=== PATIENT | male | born 1955 | race Caucasian/White ===

== ENCOUNTER → 2017-09-27 13:23 | Outpatient (CLI) | payer SELFPAY ==
[2017-09-27 14:50] LABS: International Normalized Ratio 2.7; Prothrombin Time (Protime)PT. 28.9 SECONDS (11.7-14.9)
== END ==
PROVIDERS: Physician Assistant Medical; Family Provider Family Medicine; PCP Family Medicine; Visit Provider Internal Medicine Cardiovascular Disease
DX: E78.5 Hyperlipidemia, unspecified (principal); I10 Essential (primary) hypertension; Q23.1 Congenital insufficiency of aortic valve; Z79.01 Long term (current) use of anticoagulants; Z79.899 Other long term (current) drug therapy; Z95.2 Presence of prosthetic heart valve
CPT/HCPCS: 36415; 85610

== ENCOUNTER 2018-03-08 08:36 | Outpatient (RCR) | payer SELFPAY ==
[2018-02-18 10:53] LABS: International Normalized Ratio 1.9; Prothrombin Time (Protime)PT. 22.2 SECONDS (11.7-14.9)
[2018-02-25 09:27] LABS: International Normalized Ratio 1.3; Prothrombin Time (Protime)PT. 16.4 SECONDS (11.7-14.9)
[2018-02-28 10:28] LABS: International Normalized Ratio 2.1; Prothrombin Time (Protime)PT. 23.4 SECONDS (11.7-14.9)
[2018-03-08 09:56] LABS: International Normalized Ratio 2.8; Prothrombin Time (Protime)PT. 29.3 SECONDS (11.7-14.9)
[2018-03-08 10:06] LABS: AST(SGOT) 20 U/L (15-37); Alanine Aminotransfer ALT/SGPT 27 U/L (16-61); Albumin, Serum 3.6 g/dL (3.2-5.0); Alkaline Phosphatase 57 U/L (45-117); Cholesterol 144 mg/dL (200); Globulin 3.7 g/dL (2.2-4.2); High Density Lipoprotein 38 mg/dL; Protein, Total 7.3 g/dL (6.4-8.2); Triglycerides 190 mg/dL; Very Low Density Lipoprotein 38 mg/dL (5-40)
== END 2018-03-08 10:00 | disposition home or self-care (01) ==
LOC: LAB 08:36
PROVIDERS: Family Provider Family Medicine; PCP Family Medicine; Visit Provider Internal Medicine Cardiovascular Disease
DX: Q23.1 Congenital insufficiency of aortic valve (principal); I71.2 Thoracic aortic aneurysm, without rupture; Z79.01 Long term (current) use of anticoagulants; Z95.2 Presence of prosthetic heart valve
CPT/HCPCS: 36415; 80061; 80076; 85610

== ENCOUNTER 2018-04-12 13:41 | Outpatient (RCR) | payer SELFPAY ==
[2018-04-12 15:21] LABS: International Normalized Ratio 2.9; Prothrombin Time (Protime)PT. 30.6 SECONDS (11.7-14.9)
== END 2018-04-12 15:00 | disposition home or self-care (01) ==
LOC: LAB 13:41
PROVIDERS: Family Provider Family Medicine; PCP Family Medicine; Visit Provider Internal Medicine Cardiovascular Disease
DX: I71.2 Thoracic aortic aneurysm, without rupture (principal); Q23.1 Congenital insufficiency of aortic valve; Z79.01 Long term (current) use of anticoagulants; Z95.2 Presence of prosthetic heart valve
CPT/HCPCS: 36415; 85610

== ENCOUNTER 2018-05-18 07:32 | Outpatient (RCR) | payer SELFPAY ==
[2018-05-18 08:23] LABS: International Normalized Ratio 2.6; Prothrombin Time (Protime)PT. 27.8 SECONDS (11.7-14.9)
== END 2018-05-18 09:00 | disposition home or self-care (01) ==
LOC: LAB 07:32
PROVIDERS: Family Provider Family Medicine; PCP Family Medicine; Referring Provider Internal Medicine Cardiovascular Disease; Visit Provider Internal Medicine Cardiovascular Disease
DX: Q23.1 Congenital insufficiency of aortic valve (principal); I71.2 Thoracic aortic aneurysm, without rupture; Z79.01 Long term (current) use of anticoagulants; Z95.2 Presence of prosthetic heart valve
CPT/HCPCS: 36415; 85610

== ENCOUNTER 2018-07-04 09:47 | Outpatient (RCR) | payer SELFPAY ==
[2018-06-17 11:44] VITALS: BMI 41.8
[2018-06-23 09:51] LABS: International Normalized Ratio 1.8
[2018-07-04 10:35] LABS: International Normalized Ratio 3.3; Prothrombin Time (Protime)PT. 33.4 SECONDS (11.7-14.9)
== END 2018-07-04 10:47 | disposition home or self-care (01) ==
LOC: LAB 09:47
PROVIDERS: Family Provider Family Medicine; PCP Family Medicine; Referring Provider Internal Medicine Cardiovascular Disease; Visit Provider Internal Medicine Cardiovascular Disease
DX: Q23.1 Congenital insufficiency of aortic valve (principal); I71.2 Thoracic aortic aneurysm, without rupture; Z79.01 Long term (current) use of anticoagulants; Z95.2 Presence of prosthetic heart valve
CPT/HCPCS: 36415; 85610

== ENCOUNTER 2018-08-08 14:14 | Outpatient (RCR) | payer SELFPAY ==
[2018-07-18 14:59] VITALS: BMI 41.8
[2018-08-08 15:13] LABS: International Normalized Ratio 3.2; Prothrombin Time (Protime)PT. 33.1 SECONDS (11.7-14.9)
--- OUTSIDE RECORDS SUMMARY | 2018-10-11 02:18 | XMS RPT_ITS ---
:1955 Author Organization [facility] Support Name Relationship Address Phone PATRICIA ROMO Unavailable [address] + [place] [address] SCOT ROMO Unavailable Unavailable + [place] [address] SELF Unavailable Unavailable Unavailable PATRICIA ROMO S Unavailable [address] + [place] [address] SCOT ROMO Unavailable . + [place] [address] SELF Unavailable Unavailable Unavailable ROSALINDA ROMOT S Unavailable [address] + [place] [address] SCOT ROMO Unavailable . + [place] [address] SELF Unavailable Unavailable Unavailable ROSALINDA ROMOT S Unavailable [address] + [place] [address] SCOT ROMO Unavailable . + [place] [address] SELF Unavailable Unavailable Unavailable ROSALINDA ROMOT S Unavailable [address] + [place] [address] SCOT ROMO Unavailable Unavailable + [place] [address] SELF Unavailable Unavailable Unavailable ROSALINDA ROMOT S Unavailable [address] + [place] [address] SCOT ROMO W Unavailable . + [place] [address] SELF Unavailable Unavailable Unavailable ROSALINDA ROMOT S Unavailable [address] + [place] [address] SCOT ROMO W Unavailable . + [place] [address] SELF Unavailable Unavailable Unavailable ROSALINDA ROMOT S Unavailable [address] + [place] [address] SCOT ROMO Unavailable Unavailable + [place] [address] SELF Unavailable Unavailable Unavailable PATRICIA ROMO Unavailable [address] + [place] [address] SELF Unavailable Unavailable Unavailable PATRICIA ROMO Unavailable [address] + [place] [address] SELF Unavailable Unavailable Unavailable PATRICIA ROMO Unavailable [address] + [place] [address] SELF Unavailable Unavailable Unavailable PATRICIA ROMO Unavailable [address] + [place] [address] SELF Unavailable Unavailable Unavailable PATRICIA ROMO Unavailable [address] + [place] [address] SELF Unavailable Unavailable Unavailable PATRICIA ROMO Unavailable [address] + [place] [address] SELF Unavailable Unavailable Unavailable PATRICIA ROMO S Unavailable [address] + [place] [address] SELF Unavailable Unavailable Unavailable SELF Unavailable Unavailable Unavailable Care Team Providers Name Role Phone Blu Iyer Attending Unavailable Blu Iyer Referring Unavailable Solares, Misael Primary Care Unavailable Geovani Calloway D.O. Attending Unavailable Beck, Misael Referring Unavailable Blu Iyer Attending Unavailable Blu Iyer Referring Unavailable Solares, Misael Primary Care Unavailable Minerva Colon Attending Unavailable Solares, Misael Referring Unavailable Minerva Colon Attending Unavailable Solares, Misael Referring Unavailable Solares, Misael Attending Unavailable MoodBlu hatfield Attending Unavailable MoodisBlu estrada Referring Unavailable Solares, Misael Primary Care Unavailable Blu Iyer Attending Unavailable Blu Iyer Referring Unavailable Solares, Misael Primary Care Unavailable Bul Iyer Attending Unavailable Blu Iyer Referring Unavailable Solares, Misael Primary Care Unavailable Kelsie Boyce Attending Unavailable Geovani Calloway D.O. 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 Community disease, unspecified Hospital / J44.9(ICD-10) Repository 05/18/2018 Unknown Z23 - Encounter for Geovani Calloway Active [facility] immunization / D.O. Community Z23(ICD-10) Hospital Repository 03/22/2018 Unknown E78.5 - MoodispaBlu bennett Active [facility] Hyperlipidemia, Community unspecified / Hospital E78.5(ICD-10) Repository 09/27/2017 Unknown I10 - Essential MoodispaBlu bennett Active [facility] (primary) [facility] hypertension / Hospital I10(ICD-10) Repository 09/27/2017 Unknown Z79.899 - Other long MoodisBlu estrada Active [facility] term (current) drug Community therapy / Hospital Z79.899(ICD-10) Repository 09/27/2017 Unknown Z95.2 - Presence of MoodisBlu estrada Active [facility] prosthetic heart Community valve / Z95.2(ICD-10) Hospital Repository 08/20/2017 Unknown I25.10 - Alberto Zhang Active [facility] Atherosclerotic heart [facility] disease of [place] [facility] coronary artery Repository without angina pectoris / I25.10(ICD-10) 08/20/2017 Unknown E78.2 - Mixed Alberto Zhang Active [facility] hyperlipidemia / Community E78.2(ICD-10) Hospital Repository PROCEDURES PROCEDURES No Procedure Records FoundRESULTS RESULTS PROTHROMBIN TIME W/INR Collected: 08/08/2018 Status: F [facility] TYPE CODE TESTS RESULT OUT OF RANGE REFERENCE UNITS LAB L300.4150 11.7-14.9 SECONDS High PROTIME 33.1 LAB L300.4200 Normal INR 3.2 Performed By: #### L300.3900 #### [facility] [address] [place], [address] PROTHROMBIN TIME W/INR Collected: 07/04/2018 Status: F Source: [place] 10:06 AM [facility] REPOSITORY TYPE CODE TESTS RESULT OUT OF RANGE REFERENCE UNITS LAB L300.4150 11.7-14.9 SECONDS High PROTIME 33.4 LAB L300.4200 Normal INR 3.3 Performed By: #### L300.3900 #### [facility] [address] [place], [address] PULMONARY VISIT REPORT Observed: 06/24/2018 Status: F Source: [place] 1:37 PM [facility] REPOSITORY [facility] [address] [place] [address] OFFICE VISIT Date of Service: 06/23/18 MR#: [id number] Acct: [id number] Name: ABDIAS ROMO Rep #: [id number] : 1955 Provider: Minerva Colon Age/Sex: 63/M Location: [facility] Status: Signed Assessment AND Plan Problems 1. Chronic obstructive pulmonary disease, unspecified COPD type J44.9 Plan Exacerbation improving. Take antibiotics and prednisone as prescribed. Continue current maintenance medications. No additional testing at this time. Keep previously scheduled routine follow-up. HPI f/u after acute illness: Chief Complaint: Cough HPI Comments Details: This patient presents the office in follow-up after recently being treated for exacerbation of his COPD. He is ambulatory and currently complete by his . He is on room air. He was placed on doxycycline and a prednisone taper. He has been on both of them for several days. He states that he is not 100% better but has improved significantly. He still has a slight cough that was previously productive of green sputum and is now productive of clear sputum. He also reports that the cough has reduced in frequency. He still has some wheezing but is only present at night. He shortness of breath is improving. He denies any hemoptysis. He denies any fever, chills or body aches. See complete review of systems. He is compliant with Asmanex 2 puffs twice daily. He reports rinsing his mouth out after each use and denies any medication side effects such as sore throat or thrush. He has not needed to use his rescue inhaler today, and the frequency of its use has also been reducing. Intake Vital Signs06/23/18 Height 5 ft 9 in 06/23/18 Weight: 280 lb Intake Visit Reasons: f/u after acute illness Accompanied by: Allergies Penicillins Allergy (Verified 06/24/18 08:33) Unknown Medications warfarin 1 mg tablet 2 mg PO 4XW tab 07/07/17 [History Confirmed 06/24/18] warfarin 1 mg tablet 3 mg PO .3XW tab 07/07/17 [History Confirmed 06/24/18] aspirin 81 mg tablet,delayed release 81 mg PO QDAY 08/05/17 [History Confirmed 06/24/18] niacin ER 500 mg tablet,extended release 24 hr 500 mg PO QHS #90 tab 08/13/17 [Rx Confirmed 06/24/18] ramipril 10 mg capsule 10 mg PO QDAY #90 cap 08/13/17 [Rx Confirmed 06/24/18] spironolactone 50 mg tablet 50 mg PO QDAY #90 tab 08/13/17 [Rx Confirmed 06/24/18] beclomethasone dipropionate 80 mcg/actuation aerosol inhaler 2 puff INHALATION Q12H #8.7 g 12/30/17 [Rx Confirmed 06/24/18] warfarin 1 mg tablet 1 mg PO QDAY #100 tab 03/22/18 [Rx Confirmed 06/24/18] metoprolol succinate ER 100 mg tablet,extended release 24 hr 100 mg PO QDAY #90 tab 05/18/18 [Rx Confirmed 06/24/18] mometasone 200 mcg/actuation HFA aerosol inhaler 2 puff INHALATION BID #1 device 05/18/18 [Rx Confirmed 06/24/18] warfarin 5 mg tablet 5 mg PO QDAY #90 tab 05/18/18 [Rx Confirmed 06/23/18] albuterol sulfate HFA 90 mcg/actuation aerosol inhaler 2 puff INHALATION Q4H PRN #6.7 g 11/01/18 [Rx Confirmed 06/24/18] potassium chloride ER 20 mEq tablet,extended release(part/cryst) 20 meq PO QDAY #90 tab 05/19/18 [Rx Confirmed 06/24/18] doxycycline hyclate 100 mg tablet 100 mg PO BID #20 tab 06/17/18 [Rx Confirmed 06/24/18] prednisone 10 mg tablet 10 mg PO QDAY #30 tab 06/17/18 [Rx Confirmed 06/24/18] PFSH Medical History Essential hypertension (Chronic) GERD (gastroesophageal reflux disease) (Chronic) Atherosclerosis of [place] coronary artery of [place] heart without angina pectoris (Chronic) Obesity (Chronic) Breathing-related sleep disorder (Chronic) COPD (chronic obstructive pulmonary disease) (Chronic) Lung nodule (Chronic) Snoring (Chronic) Carotid bruit (Chronic) Aortic valve, bicuspid (Chronic) Aortic aneurysm, thoracic (Chronic) Aortic valve disease (Chronic) Hypokalemia (Chronic) HLD (hyperlipidemia) (Chronic) JO ANN (obstructive sleep apnea) (Acute) Surgical History History of mechanical aortic valve replacement (Resolved 06/2004) History of left heart catheterization (LHC) (Resolved) History of right and left heart catheterization (Resolved) H/O aortic valve replacement (Inactive) Family History Father , age 60 Myocardial infarction Hypertension Mother CAD (coronary artery disease) Hypertension HLD (hyperlipidemia) Brother Hypertension Sister Cancer Bone Cancer Social History Smoking Status: Never smoker alcohol intake: current alcohol intake frequency: holidays/special occasions only Alcohol type: beer, wine substance use type: does not use caffeine: Yes Type: coffee Number of servings: 3 what type of physical activity do you participate in: none seatbelt use: always do you feel safe at home: Yes Review of Systems Const CONSTITUTIONAL: Negative anorexia, body ache, chills, daytime sleepiness, fever(s), night sweats, oral thrush, stops breathing during sleep, weight loss, sleeping in chair, fatigue, weight loss, weight gain, frequent colds, seasonal allergies, other, headache(s) or orthopnea EETM Ear Nose Throat Mouth: Positive hearing normal and post nasal drip; negative hard of hearing, hoarseness, dry mouth in morning, change in vision, itchy eyes, eye pain, swallowing Difficulty, ear pain, nose bleed, headache(s), mouth pain, nasal congestion, nasal discharge, sinus pain, sinus pressure, sore throat or other Cardio Cardiovascular: Negative chest pain, chest pain at rest, chest pain with activity, irregular heart rhythm, edema, shortness of breath when lying down, palpitations, murmur or other Resp Respiratory: Positive as per HPI, shortness of breath shortness of breath: Positive with activity, wheezing (at HS ) and cough cough: Positive productive color: Positive thick and clear; negative pain with cough, chest congestion, chest tightness, pain on inspiration, inhalers, increase use of rescue inhalers, snoring, apnea or other Gastro Gastrointestional: Negative bloody stools, change in appetite, difficulty swallowing, reflux, hematemesis, melena stool, loose stool, constipation or other Genitourinary: Negative blood in urine, nocturia, pain with urination or other Musc Musculoskeletal: Negative body pain, back pain, neck pain or other Skin/Breast Skin/Breast: Negative dry skin, itching, rash, unusual bruising, breast lump or other Neuro Neurological: Negative restless legs, confusion, weakness or other Psych Psychocological: Negative abnormal sleep pattern, anxiety, thoughts of hurting self/others, hopelessness or other Lymph Lymphatic: Negative easy bleeding, easy bruising, swollen lymph nodes or other Exam Const Constitutional: Positive conversant, cooperative, in no acute respiratory distress, healthy appearing, well developed, well nourished, good hygiene and obese Head Head: Positive normocephalic and atraumatic; negative cyanosis of lips/distal nose Eyes Eye: Positive clear conjunctiva; negative nystagmus or scleral abnormality Ears Ear: Positive hearing normal and external ears normal; negative hard of hearing Nose Nose: Positive external nose normal and no nasal discharge; negative epistaxis Mouth Mouth: Positive post nasal drip, oral mucosae normal, no lesions, good dentition and crowded posterior oropharynx; negative malodorous breath or oral thrush present Mallampati Score: III: Mallampati Score Neck Neck: Positive normal visual inspection, full ROM and trachea midline; negative lymphadenopathy, JVD or tender Chest Wall Chest: Positive normal inspection of the chest and symmetric chest movement; negative increased A/P diameter Resp lung sounds: Positive clear to auscultation, good air exchange, normal expiratory time and normal respiratory effort; negative diminished, wheezes, rhonchi, rales, dullness to percussion or wheeze present on forced exhalation Cardio Cardiac: Positive regular rate, regular rhythm, S1 normal and S2 normal; negative murmur GI GI: Positive normal to inspection and obese; negative distended Genitourinary: Positive deferred Musc Musculoskeletal: Positive steady gait and ROM normal; negative kyphosis or scoliosis Skin Pulmonary Skin Exam: Positive intact; negative rash Pulses Pulse: Yes pulses normal x4 extremities Neuro Neurologic: Yes conversant, Yes no focal neuro deficits, Yes cooperative, Yes normal cognition, Yes normal concentration, Yes understands questions, No tremor, Yes normal coordination Lymph Lymphatic: No lymphadenopathy, No tenderness Psych Appearance: Positive grossly normal, eye contact and well kempt Mental Status: Positive mental status grossly normal Mood: Positive congruent mood Affect: Positive normal affect Coding Level of Care Code Off vis,est,level 3 Diagnoses Chronic obstructive pulmonary disease, unspecified COPD type J44.9 COPD type: unspecified COPD 06/24/18 1337 <Electronically signed by Minerva WORTHINGTON> Date Minerva WORTHINGTON Cosigner Signature: Date (if applicable) CC: Misael Solares MD CARDIOLOGY VISIT Observed: 06/24/2018 Status: F Source: [place] REPORT 11:50 AM [facility] REPOSITORY [facility] [address] [place] [address]. [address] [place], [place] [id number] OFFICE VISIT Date of Service: 06/24/18 MR#: [id number] Acct: [id number] Name: ABDIAS ROMO Rep #: [id number] : 1955 Provider: Blu Iyer MD Age/Sex: 63/M Location: [facility] Status: Signed HPI HPI Details: ABDIAS ROMO, is a 63 M who presents to the office today for outpatient cardiovascular follow-up. Overall he states he is doing well. He denies any concerning chest discomfort. There is been no significant change with his respiratory status. There has been no near syncope or syncope. He has had no unexplained fevers, chills, or night sweats. 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: No Accompanied by: None Is patient in pain?: No Allergies Penicillins Allergy (Verified 06/24/18 08:33) Unknown Medications warfarin 1 mg tablet 2 mg PO 4XW tab 07/07/17 [History Confirmed 06/24/18] warfarin 1 mg tablet 3 mg PO .3XW tab 07/07/17 [History Confirmed 06/24/18] aspirin 81 mg tablet,delayed release 81 mg PO QDAY 08/05/17 [History Confirmed 06/24/18] niacin ER 500 mg tablet,extended release 24 hr 500 mg PO QHS #90 tab 08/13/17 [Rx Confirmed 06/24/18] ramipril 10 mg capsule 10 mg PO QDAY #90 cap 08/13/17 [Rx Confirmed 06/24/18] spironolactone 50 mg tablet 50 mg PO QDAY #90 tab 08/13/17 [Rx Confirmed 06/24/18] beclomethasone dipropionate 80 mcg/actuation aerosol inhaler 2 puff INHALATION Q12H #8.7 g 12/30/17 [Rx Confirmed 06/24/18] warfarin 1 mg tablet 1 mg PO QDAY #100 tab 03/22/18 [Rx Confirmed 06/24/18] metoprolol succinate ER 100 mg tablet,extended release 24 hr 100 mg PO QDAY #90 tab 05/18/18 [Rx Confirmed 06/24/18] mometasone 200 mcg/actuation HFA aerosol inhaler 2 puff INHALATION BID #1 device 05/18/18 [Rx Confirmed 06/24/18] warfarin 5 mg tablet 5 mg PO QDAY #90 tab 05/18/18 [Rx Confirmed 06/23/18] albuterol sulfate HFA 90 mcg/actuation aerosol inhaler 2 puff INHALATION Q4H PRN #6.7 g 05/19/18 [Rx Confirmed 06/24/18] potassium chloride ER 20 mEq tablet,extended release(part/cryst) 20 meq PO QDAY #90 tab 05/19/18 [Rx Confirmed 06/24/18] doxycycline hyclate 100 mg tablet 100 mg PO BID #20 tab 06/17/18 [Rx Confirmed 06/24/18] prednisone 10 mg tablet 10 mg PO QDAY #30 tab 06/17/18 [Rx Confirmed 06/24/18] PFSH Medical History Essential hypertension (Chronic) GERD (gastroesophageal reflux disease) (Chronic) Atherosclerosis of [place] coronary artery of [place] heart without angina pectoris (Chronic) Obesity (Chronic) Breathing-related sleep disorder (Chronic) COPD (chronic obstructive pulmonary disease) (Chronic) Lung nodule (Chronic) Snoring (Chronic) Carotid bruit (Chronic) Aortic valve, bicuspid (Chronic) Aortic aneurysm, thoracic (Chronic) Aortic valve disease (Chronic) Hypokalemia (Chronic) HLD (hyperlipidemia) (Chronic) JO ANN (obstructive sleep apnea) (Acute) Surgical History History of mechanical aortic valve replacement (Resolved 06/2004) History of left heart catheterization (LHC) (Resolved) History of right and left heart catheterization (Resolved) H/O aortic valve replacement (Inactive) Family History Father , age 60 Myocardial infarction Hypertension Mother CAD (coronary artery disease) Hypertension HLD (hyperlipidemia) Brother Hypertension Sister Cancer Bone Cancer Social History Smoking Status: Never smoker alcohol intake: current alcohol intake frequency: holidays/special occasions only Alcohol type: beer, wine substance use type: does not use caffeine: Yes Type: coffee Number of servings: 3 what type of physical activity do you participate in: none seatbelt use: always do you feel safe at home: Yes ROS Const Const: Negative for fatigue, weakness, night sweats, excessive sweating, frequent falls, headache(s) or daytime sleepiness Eyes Eyes: Negative for loss of peripheral vision, transient loss of vision, blind spots, double vision or blurry vision ENT ENT: Negative for headache(s), dizziness, balance problems, Nosebleed/epistaxis, tongue swelling or lip swelling Cardio Chest Pain: No Palpitations: No Edema: None Muscle aches with walking: None Resp Respiratory: Positive for SOB at rest and SOB with activity; negative for SOB orthopnea\SOB lying down, Cough or paroxysmal nocturnal dyspnea GI GI: Negative nausea, vomiting, heartburn, black,tarry stools or bright, red blood in stools : Negative for hematuria Musc Musc: Negative for balance problems, muscle aches/ myalgia, muscle weakness or joint pain Skin Skin: Negative non-healing lesions, unusual bruising or rash Neuro Neuro: Negative for weakness, frequent falls, headache(s), double vision, dizziness, lightheadedness, orthostatic symptoms, blurry vision or lack of coordination Keys[place]wn Hematologic/Lymphatic: Negative for easy bruising or easy bleeding Endo Endo: Negative for fatigue, excessive sweating, cold intolerance, heat intolerance, increased thirst/drinking or hair loss Psych Psych: Negative for anxiety or depression Allergy Allergy/Immunology: Negative for throat swelling, Negative for tongue swelling, Negative for hives, Negative for rash, Negative for lip swelling Cardiology Exam Const Appearance: cooperative, healthy appearing, comfortable, no acute distress, well developed and well groomed Nutritional Appearance: overweight Orientation: alert, awake and oriented x3 Head Head: normal to inspection, normocephalic and atraumatic Ears: hearing grossly normal bilaterally Nose: external nose normal Face and Sinus: face symmetric Mouth: oral mucosae normal Teeth and gingiva: fair dentition Eyes Eyelids: eyelids normal Conjunctivae: conjunctivae normal Pupils: PERRL EOM: EOM intact bilaterally Neck Neck: no JVD and normal visual inspection Carotids: normal carotid upstroke Chest Chest inspection: normal inspection of the chest, normal respiratory effort and symmetric chest movement Auscultation: Bilateral: Expiratory Wheezes Cardio Rate: regular rate Rhythm: regular rhythm Heart sounds: murmur (systolic click, right sternal border), S1 normal and crisp prosthetic S2; negative rub or gallop GI GI: normal to inspection, bowel sounds present and soft Neuro General: alert, awake, oriented x3 and moves all extremities Skin Skin: no rashes or lesions noted Extremities Pulses: Normal: Right Posterior Tibial Pulse, Left Posterior Tibial Pulse, Right Radial Pulse, Left Radial Pulse Lower Extremity Edema: None: Bilateral Psych Psychological: normal affect Assessment AND Plan 1. Aortic valve disorder I35.[address] [facility] 06/2004 Plan At the present time, with respect to his aortic valve, he is status post aortic valve replacement with a mechanical [place] aortic valve prosthesis. He has been doing well with no acute symptoms or adverse events. He did have a transthoracic echocardiogram performed in December 2016. He has aortic valve apparatus was stable. He will need to continue AHA antibiotic prophylaxis 2. History of mechanical aortic valve replacement Z95.2 [facility] mechanical valve 06/2004; Plan He will continue evaluation care of his aortic valve as noted above. Over time he will have follow-up echocardiograms to monitor his aortic valve apparatus 3. Atherosclerosis of [place] coronary artery of [place] heart without angina pectoris I25.10 Mild Plan He has a history of CAD which has been considered minimal to mild. He will continue risk factor evaluation and care as deemed appropriate. 4. Mixed hyperlipidemia E78.2 Plan He remains on medical management with respect to his lipids. This has included niacin therapy. A copy of his most recent lipid labs from his PCP would be appreciated for continuity of care purposes. 5. Essential hypertension I10 Plan His blood pressure appears to be recently well controlled. 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 He will continue medical therapy with follow-up INR levels. Plan Detail Additional Comments Thank you for allowing me to participate in the care of your patient. Please don't hesitate to call if any issues arise. This note was generated using a voice recognition system and there may be incorrect words, spelling or punctuation that were not noted when reviewing the office note prior to saving. 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 Z79.01 Coding Level of Care Code Off vis,est,level 3 Diagnoses Aortic valve disorder I35.9 History of mechanical aortic valve replacement Z95.2 Atherosclerosis of king salmon coronary artery of king salmon heart without angina pectoris I25.10 Mixed hyperlipidemia E78.2 Hyperlipidemia type: mixed hyperlipidemia Essential hypertension I10 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, [address] PROTHROMBIN TIME W/INR Collected: 05/18/2018 Status: F Source: [place] 7:37 AM [facility] REPOSITORY TYPE CODE TESTS RESULT OUT OF RANGE REFERENCE UNITS LAB L300.4150 11.7-14.9 SECONDS High PROTIME 27.8 LAB L300.4200 Normal INR 2.6 Performed By: #### L300.3900 #### [facility] [address] [place], [address] PULMONARY VISIT REPORT Observed: 05/18/2018 Status: F Source: [place] 7:25 AM [facility] REPOSITORY Pulmonary Medicine of [address] [place] [address] OFFICE VISIT Date of Service: 05/18/18 MR#: [id number] Acct: [id number] Name: ABDIAS ROMO Pascual Rep #: [id number] : 1955 Provider: Geovani Calloway D.O. Age/Sex: 63/M Location: [facility] Status: Signed Assessment AND Plan 1. 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 To date, the patient has developed side effects to the use of LAMA inhalers more recently to combination LAMA/LABA inhalers. Therefore, the patient was transitioned to an inhaled corticosteroid as monotherapy along with an albuterol rescue inhaler. This has proved to be beneficial in his case. His breathing quality has improved. However, due to his lack of insurance coverage, the currently prescribed inhaled corticosteroid remains costly. Advised the patient and his to contact the retail pharmacist to discuss with him the most cost effective inhaled corticosteroid available. In the interim, I will provide the patient with samples of Asmanex. We discussed the idea of transitioning him to nebulized medications, budesonide. However, he does not want to be tethered to a nebulizer throughout the day. We will plan to obtain repeat pulmonary function testing and a 6-minute walk test prior to his follow- up office visit with me in 6 months. The patient did receive his annual influenza vaccination today. Orders Orders: 2. Lung nodule R91.1 Plan The patient has a known subcentimeter pulmonary nodule, with last imaging completed in May 2017. It was recommended that he undergo a repeat CT chest in 18-24 months. They would like to wait until the patient turned 64 years old, as he will then be covered by Medicare. We will plan to obtain a repeat CT chest without contrast in approximately 1 year. 3. Obesity E66.9 Plan Weight loss through dietary modification and a graded exercise regimen is strongly encouraged. Plan Detail Other Orders Orders: Other Medications New: Discontinued: beclomethasone diprop 80 mcg/actuation (Qvar RediHaler) Disconti1 puff Inhalation BID nued Reason: Order Changed Follow Up 6 Months (DMB) HPI HPI Comments Details: The patient is a 63-year-old male who presents to the clinic today for a routine scheduled follow-up office visit. Patient's is in attendance at today's office visit. If you recall, the patient was previously being followed by Dr. Newman at [facility]. The patient presented to me with an established diagnosis of COPD, for which he was prescribed Proventil. He also had a known history of pulmonary nodules, which were being followed with serial chest imaging. He does have a history of aortic valve replacement in 2003 at the [facility]. Noncontrasted chest CT from November 2016 revealed the presence of a stable appearing 8.7 mm solid nodule in the medial superior segment of the right lower lobe. Pulmonary function testing completed in September 2016 revealed evidence of a partially reversible severe large airways obstructive ventilatory defect. There was a mild reduction in diffusing capacity measurement noted. Over last 2 years, there was an appreciable decrease in the patient's FEV1. The patient also had symptoms concerning for underlying sleep disordered breathing, but refused to undergo any additional workup due to fears of her claustrophobia. He is a lifelong non-smoker. 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 He also has reported seasonal allergic rhinitis, with symptoms typically worse in the spring and late fall months. He has lived in [place] his entire life. A repeat CT chest with contrast, completed in May 2017, revealed a stable appearing 8.4 mm noncalcified nodule in the right lower lobe. Today, the patient reports interval improvement in his breathing quality since being started on QVAR as a monotherapy maintenance inhaler. He typically utilizes his rescue inhaler approximately 10 minutes before utilizing his inhaled corticosteroid each morning. Their main concern is the cost associated with refilling the inhaled corticosteroid. In fact, the patient reports that he recently cut back to only using the medication once per day due to the cost. Patient does report occasional wheezing, typically in the evening hours. He denies any chest tightness or nocturnal symptoms. He denies the presence of a cough. He is agreeable to receiving his annual influenza vaccination today. He has not been evaluated in the emergency department or urgent care clinic for breathing related issues since his last office visit. His weight has remained relatively stable. He denies fevers, chills or night sweats. Intake Vital Signs05/18/18 Height 5 ft 9 in 05/18/18 Weight: 285 lb Intake Visit Reasons: 6 M FU Allergies Penicillins Allergy (Verified 11/08/17 08:49) Unknown Medications warfarin 1 mg tablet 2 mg PO 4XW tab 07/07/17 [History Confirmed 05/18/18] warfarin 1 mg tablet 3 mg PO .3XW tab 07/07/17 [History Confirmed 05/18/18] aspirin 81 mg tablet,delayed release 81 mg PO QDAY 08/05/17 [History Confirmed 05/18/18] metoprolol succinate ER 100 mg tablet,extended release 24 hr 100 mg PO QDAY #90 tab 08/13/17 [Rx Confirmed 05/18/18] niacin ER 500 mg tablet,extended release 24 hr 500 mg PO QHS #90 tab 08/13/17 [Rx Confirmed 05/18/18] potassium chloride ER 20 mEq tablet,extended release(part/cryst) 20 meq PO QDAY #90 tab 08/13/17 [Rx Confirmed 05/18/18] ramipril 10 mg capsule 10 mg PO QDAY #90 cap 08/13/17 [Rx Confirmed 05/18/18] spironolactone 50 mg tablet 50 mg PO QDAY #90 tab 08/13/17 [Rx Confirmed 05/18/18] warfarin 5 mg tablet 5 mg PO QDAY #90 tab 08/13/17 [Rx Confirmed 05/18/18] albuterol sulfate HFA 90 mcg/actuation aerosol inhaler 2 puff INHALATION Q4H PRN g 10/04/17 [History Confirmed 05/18/18] beclomethasone dipropionate 80 mcg/actuation aerosol inhaler 2 puff INHALATION Q12H #8.7 g 12/30/17 [Rx Confirmed 05/18/18] warfarin 1 mg tablet 1 mg PO QDAY #100 tab 03/22/18 [Rx Confirmed 05/18/18] mometasone 200 mcg/actuation HFA aerosol inhaler 2 puff INHALATION BID #1 device 05/18/18 [Rx Confirmed 05/18/18] PFSH Medical History Essential hypertension (Chronic) GERD (gastroesophageal reflux disease) (Chronic) Atherosclerosis of king salmon coronary artery of king salmon heart without angina pectoris (Chronic) Obesity (Chronic) Breathing-related sleep disorder (Chronic) COPD (chronic obstructive pulmonary disease) (Chronic) Lung nodule (Chronic) Snoring (Chronic) Carotid bruit (Chronic) Aortic valve, bicuspid (Chronic) Aortic aneurysm, thoracic (Chronic) Aortic valve disease (Chronic) Hypokalemia (Chronic) HLD (hyperlipidemia) (Chronic) JO ANN (obstructive sleep apnea) (Acute) Surgical History H/O aortic valve replacement (Chronic) History of left heart catheterization (LHC) (Resolved) History of right and left heart catheterization (Resolved) Family History Father , age 60 Myocardial infarction Hypertension Mother CAD (coronary artery disease) Hypertension HLD (hyperlipidemia) Brother Hypertension Sister Cancer Bone Cancer Social History Smoking Status: Never smoker alcohol intake: current alcohol intake frequency: holidays/special occasions only Alcohol type: beer, wine substance use type: does not use caffeine: Yes Type: coffee Number of servings: 3 what type of physical activity do you participate in: none seatbelt use: always do you feel safe at home: Yes Review of Systems Const CONSTITUTIONAL: Negative anorexia, body ache, chills, daytime sleepiness, fever(s), night sweats, oral thrush, stops breathing during sleep, weight loss, sleeping in chair, fatigue, weight loss, weight gain, frequent colds, seasonal allergies, other, headache(s) or orthopnea EETM Ear Nose Throat Mouth: Positive hearing normal and nasal discharge; negative hard of hearing, hoarseness, dry mouth in morning, change in vision, itchy eyes, eye pain, swallowing Difficulty, ear pain, nose bleed, headache(s), mouth pain, nasal congestion, post nasal drip, sinus pain, sinus pressure, sore throat or other Cardio Cardiovascular: Positive murmur; negative chest pain, chest pain at rest, chest pain with activity, irregular heart rhythm, edema, shortness of breath when lying down, palpitations or other Resp Respiratory: Positive as per HPI, cough cough: Positive productive color: Positive clear and thick and shortness of breath shortness of breath: Positive with activity; negative pain with cough, wheezing, chest congestion, chest tightness, pain on inspiration, inhalers, increase use of rescue inhalers, snoring, apnea or other Gastro Gastrointestional: Negative bloody stools, change in appetite, difficulty swallowing, reflux, hematemesis, melena stool, loose stool, constipation or other Genitourinary: Negative blood in urine, nocturia, pain with urination or other Musc Musculoskeletal: Negative body pain, back pain, neck pain or other Skin/Breast Skin/Breast: Negative dry skin, itching, rash, unusual bruising, breast lump or other Neuro Neurological: Negative restless legs, confusion, weakness or other Psych Psychocological: Negative abnormal sleep pattern, anxiety, thoughts of hurting self/others, hopelessness or other Lymph Lymphatic: Negative easy bleeding, easy bruising, swollen lymph nodes or other Exam Const Constitutional: Positive conversant, cooperative, in no acute respiratory distress, well developed, well nourished, good hygiene and obese Head Head: Positive normocephalic and atraumatic; negative cyanosis of lips/distal nose Eyes Eye: Positive clear conjunctiva; negative nystagmus or scleral abnormality Ears Ear: Positive hearing normal and external ears normal; negative hard of hearing Nose Nose: Positive external nose normal; negative epistaxis Mouth Mouth: Positive oral mucosae normal and posterior oropharynx is adequate; negative no lesions or post nasal drip Mallampati Score: III: Mallampati Score Neck Neck: Positive normal visual inspection, trachea midline and thick neck; negative lymphadenopathy Chest Wall Chest: Positive symmetric chest movement Normal AP diameter. Resp lung sounds: Positive clear to auscultation and good air exchange; negative wheezes, rhonchi or rales Cardio Cardiac: Positive regular rate, regular rhythm, S1 normal, S2 normal and murmur; negative rub or gallop GI GI: Positive normal bowel sounds and obese Soft without distention Genitourinary: Positive deferred Musc Musculoskeletal: Positive steady gait Skin Pulmonary Skin Exam: Positive intact; negative lesion, ulcers, dermal atrophy or rash Pulses Pulse: Yes Pedal pulses present: Extremities Extremities: No clubbing, No cyanosis, No edema Neuro Neurologic: Yes conversant, Yes no focal neuro deficits, Yes cooperative Lymph Lymphatic: No lymphadenopathy Psych Appearance: Positive grossly normal Mental Status: Positive mental status grossly normal Mood: Positive congruent mood Affect: Positive normal affect Office Meds Flucelvax Quad [id number] (PF) Performing Provider: Geovani Calloway DO Administered by: Alysia Lundberg on 05/18/18 07:18 Dose Route Admin Location Lot Number Expiration Date NDC Customer Service Sales Consultant 60 mcg IM Rt Deltoid [id number] 12/17/18 36860-295-92 SEQIRUS Coding Level of Care Code Off vis,est,level 3 Diagnoses 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 [place], [place], [id number] PROTHROMBIN TIME W/INR Collected: 03/08/2018 Status: F Source: [place] 8:41 AM [facility] REPOSITORY TYPE CODE TESTS RESULT OUT OF RANGE REFERENCE UNITS LAB L300.4150 11.7-14.9 SECONDS High PROTIME 29.3 LAB L300.4200 Normal INR 2.8 Performed By: #### L300.3900 #### [facility] [address] [place], [place], [id number] LIVER PROFILE Collected: 03/08/2018 Status: F Source: [place] 8:39 AM [facility] REPOSITORY TYPE CODE TESTS RESULT OUT OF RANGE REFERENCE UNITS LAB L501.1500 6.4-8.2 g/dL Normal T PROT 7.3 LAB L501.1800 3.2-5.0 g/dL Normal ALB 3.6 LAB L501.1950 2.2-4.2 g/dL Normal GLOB 3.7 LAB L501.4100 15-37 U/L Normal AST 20 LAB L501.4305 45-117 U/L Normal ALK P 57 LAB L501.4405 16-61 U/L Normal ALT 27 LAB L501.4600 0.20-1.00 mg/dL Normal T BILI 0.90 LAB L501.4700 0.00-0.30 mg/dL Normal D BILI 0.20 Performed By: #### L500.3400, L500.4100 #### [facility] [address] [place], [place], [address] LIPID PROFILE Collected: 03/08/2018 Status: F Source: [place] 8:39 AM [facility] REPOSITORY TYPE CODE TESTS RESULT OUT OF RANGE REFERENCE UNITS LAB L501.4900 200 mg/dL Normal CHOL 144 Result Comment: <200 mg/dL Desirable 200-240 mg/dL Borderline >240 mg/dL High Risk LAB L501.5000 mg/dL Normal TRIG 190 Result Comment: The drugs N-Acetylcysteine and Metamizole may falsely depress this assay. Serum Triglycerides Reference Interval Normal <150 mg/dL Borderline high 150 - 199 mg/dL High 200 - 499 mg/dL Very High > or = 500 mg/dL LAB L501.6400 mg/dL Low HDL 38 Result Comment: The drugs N-Acetylcysteine and Metamizole may falsely depress this assay. Reference Range HDL <40 mg/dL Low HDL Cholesterol HDL >or= 60 mg/dL High HDL Cholesterol LAB L501.6500 0-130 mg/dL Normal LDL 68 LAB L501.6600 5-40 mg/dL Normal VLDL 38 Performed By: #### L500.3400, L500.4100 #### [facility] [address] [place], [address] PROTHROMBIN TIME W/INR Collected: 02/28/2018 Status: F Source: [place] 9:28 AM [facility] REPOSITORY TYPE CODE TESTS RESULT OUT OF RANGE REFERENCE UNITS LAB L300.4150 11.7-14.9 SECONDS High PROTIME 23.4 LAB L300.4200 Normal INR 2.1 Performed By: #### L300.3900 #### [facility] [address] [place], [address] PROTHROMBIN TIME W/INR Collected: 02/25/2018 Status: F Source: [place] 8:51 AM [facility] REPOSITORY Order Comment: Comments: standing order TYPE CODE TESTS RESULT OUT OF RANGE REFERENCE UNITS LAB L300.4150 11.7-14.9 SECONDS High PROTIME 16.4 LAB L300.4200 Normal INR 1.3 Performed By: #### L300.3900 #### [facility] [address] [place], [address] PROTHROMBIN TIME W/INR Collected: 02/18/2018 Status: F Source: [place] 9:43 AM [facility] REPOSITORY TYPE CODE TESTS RESULT OUT OF RANGE REFERENCE UNITS LAB L300.4150 11.7-14.9 SECONDS High PROTIME 22.2 LAB L300.4200 Normal INR 1.9 Performed By: #### L300.3900 #### [facility] [address] [place], [address] PULMONARY VISIT REPORT Observed: 11/08/2017 Status: F Source: [place] 10:02 AM [facility] REPOSITORY [facility] [place] [address] [place] [address] OFFICE VISIT Date of Service: 11/08/17 MR#: [id number] Acct: [id number] Name: ABDIAS ROMO Rep #: [id number] : 1955 Provider: Minerva Colon Age/Sex: 62/M Location: [facility] Status: Signed Assessment AND Plan Problems 1. Chronic obstructive pulmonary disease, unspecified COPD type J44.9 Status Chronic Plan He has responded well to the use of the straight inhaled cortical steroid. Continue Arnuity, provided him with a pamphlet with possible financial assistance information in it. He does have a postnasal drip on exam and reports a cough that is productive of clear sputum in the mornings. He has been encouraged to use Flonase, he has done so in the past. He reports that he typically needs to use Flonase in the spring. Follow-up with Dr. Calloway in 6 months, no additional testing prior to that follow-up. He has been encouraged to contact the office if he develops any new or worsening symptoms in the meantime. Plan Detail Follow Up 6 Months (DMB) HPI HPI Comments Details: Patient presents the office today after newly being changed to a straight inhaled corticosteroid alone. He is ambulatory and currently in room air. He denies being seen in the ED urgent care for any breathing problems since his last office visit. He has not required any antibiotics or prednisone for any respiratory illnesses. He has been using the Arnuity, 1 puff daily. He has had good symptom relief with the new maintenance medication. He does not have a return of the side effects that he experienced with the Symbicort, which consisted of dizziness and hypertension. He is not needing to use his rescue inhaler at all. He reports rinsing his mouth out after each use and denies any medication side effects such as sore throat or thrush. He does have an occasional cough that is productive of clear sputum. He experiences shortness of breath only on exertion, or if he is exposed to cold air. He does report that using the Proventil during these episodes completely relieve him of his shortness of breath. He denies any hemoptysis, chest tightness or wheezing. He has not experienced any chest pain or palpitations. He denies any lower extremity edema. Denies any fever, chills or body aches. See complete review of systems. Intake Vital Signs11/08/17 Height 5 ft 9 in 11/08/17 Weight: 285 lb Intake Visit Reasons: 1 M FU Accompanied by: Self Is patient in pain?: No Allergies Penicillins Allergy (Verified 11/08/17 08:49) Unknown Medications warfarin 1 mg tablet 2 mg PO 4XW tab 07/07/17 [History Confirmed 11/08/17] warfarin 1 mg tablet 3 mg PO .3XW tab 07/07/17 [History Confirmed 11/08/17] aspirin 81 mg tablet,delayed release 81 mg PO QDAY 08/05/17 [History Confirmed 11/08/17] metoprolol succinate ER 100 mg tablet,extended release 24 hr 100 mg PO QDAY #90 tab 08/13/17 [Rx Confirmed 11/08/17] niacin ER 500 mg tablet,extended release 24 hr 500 mg PO QHS #90 tab 08/13/17 [Rx Confirmed 11/08/17] potassium chloride ER 20 mEq tablet,extended release(part/cryst) 20 meq PO QDAY #90 tab 08/13/17 [Rx Confirmed 11/08/17] ramipril 10 mg capsule 10 mg PO QDAY #90 cap 08/13/17 [Rx Confirmed 11/08/17] spironolactone 50 mg tablet 50 mg PO QDAY #90 tab 08/13/17 [Rx Confirmed 11/08/17] warfarin 1 mg tablet 1 mg PO QDAY #100 tab 08/13/17 [Rx Confirmed 11/08/17] warfarin 5 mg tablet 5 mg PO QDAY #90 tab 08/13/17 [Rx Confirmed 11/08/17] fluticasone 50 mcg/actuation nasal spray,suspension 2 spray INTRANASAL QDAY #1 device 08/24/17 [Rx Confirmed 11/08/17] albuterol sulfate HFA 90 mcg/actuation aerosol inhaler 2 puff INHALATION Q4H PRN g 10/04/17 [History Confirmed 11/08/17] fluticasone furoate 200 mcg/actuation blister powder for inhalation 1 inh INHALATION QDAY #30 ea 10/04/17 [Rx Confirmed 11/08/17] PFSH Medical History Atherosclerosis of king salmon coronary artery of king salmon heart without angina pectoris (Chronic) Obesity (Chronic) Breathing-related sleep disorder (Chronic) COPD (chronic obstructive pulmonary disease) (Chronic) Lung nodule (Chronic) Snoring (Chronic) Carotid bruit (Chronic) Aortic valve, bicuspid (Chronic) Aortic aneurysm, thoracic (Chronic) Cardiovascular disease (Chronic) Aortic valve disease (Chronic) CAD (coronary artery disease) (Chronic) HTN (hypertension) (Chronic) Hypokalemia (Chronic) HLD (hyperlipidemia) (Chronic) Surgical History H/O aortic valve replacement (Chronic 06/2004) History of left heart catheterization (LHC) (Resolved) History of right and left heart catheterization (Resolved) Family History Father , age 60 Myocardial infarction Hypertension Mother CAD (coronary artery disease) Hypertension HLD (hyperlipidemia) Brother Hypertension Sister Cancer Bone Cancer Social History Smoking Status: Never smoker alcohol intake: current alcohol intake frequency: holidays/special occasions only Alcohol type: beer, wine substance use type: does not use caffeine: Yes Type: coffee Number of servings: 3 what type of physical activity do you participate in: none seatbelt use: always do you feel safe at home: Yes Review of Systems Const CONSTITUTIONAL: Negative anorexia, body ache, chills, daytime sleepiness, fever(s), night sweats, oral thrush, stops breathing during sleep, weight loss, sleeping in chair, fatigue, weight loss, weight gain, frequent colds, seasonal allergies, other, headache(s) or orthopnea EETM Ear Nose Throat Mouth: Positive hearing normal, nasal discharge and post nasal drip; negative hard of hearing, hoarseness, dry mouth in morning, change in vision, itchy eyes, eye pain, swallowing Difficulty, ear pain, nose bleed, headache(s), mouth pain, nasal congestion, sinus pain, sinus pressure, sore throat or other Cardio Cardiovascular: Negative chest pain, chest pain at rest, chest pain with activity, irregular heart rhythm, edema, shortness of breath when lying down, palpitations, murmur or other Resp Respiratory: Positive as per HPI, shortness of breath shortness of breath: Positive with activity, cough cough: Positive productive color: Positive clear and inhalers; negative pain with cough, wheezing, chest congestion, chest tightness, pain on inspiration, increase use of rescue inhalers, snoring, apnea or other Gastro Gastrointestional: Negative bloody stools, change in appetite, difficulty swallowing, reflux, hematemesis, melena stool, loose stool, constipation or other Genitourinary: Negative blood in urine, nocturia, pain with urination or other Musc Musculoskeletal: Negative body pain, back pain, neck pain or other Skin/Breast Skin/Breast: Negative dry skin, itching, rash, unusual bruising, breast lump or other Neuro Neurological: Negative restless legs, confusion, weakness or other Psych Psychocological: Negative abnormal sleep pattern, anxiety, thoughts of hurting self/others, hopelessness or other Lymph Lymphatic: Negative easy bleeding, easy bruising, swollen lymph nodes or other Exam Const Constitutional: Positive conversant, cooperative, in no acute respiratory distress, healthy appearing, well developed, well nourished, good hygiene and obese Head Head: Positive normocephalic and atraumatic; negative cyanosis of lips/distal nose Eyes Eye: Positive clear conjunctiva and nystagmus; negative scleral abnormality Ears Ear: Positive hearing normal and external ears normal; negative hard of hearing Nose Nose: Positive external nose normal and no nasal discharge; negative epistaxis Mouth Mouth: Positive post nasal drip, oral mucosae normal, no lesions, good dentition and crowded posterior oropharynx; negative malodorous breath or oral thrush present Mallampati Score: III: Mallampati Score Neck Neck: Positive normal visual inspection, full ROM, trachea midline and thick neck; negative lymphadenopathy, JVD or tender Chest Wall Chest: Positive normal inspection of the chest and symmetric chest movement; negative increased A/P diameter Resp lung sounds: Positive clear to auscultation, good air exchange, normal expiratory time and normal respiratory effort; negative diminished, wheezes, rhonchi, rales, dullness to percussion or wheeze present on forced exhalation Cardio Cardiac: Positive regular rate, regular rhythm, S1 normal and S2 normal; negative murmur GI GI: Positive normal to inspection, normal bowel sounds and obese; negative distended Genitourinary: Positive deferred Musc Musculoskeletal: Positive steady gait and ROM normal; negative kyphosis or scoliosis Skin Pulmonary Skin Exam: Positive intact; negative rash, lesion, ulcers, erythema, scaly or dermal atrophy Pulses Pulse: Yes pulses normal x4 extremities Extremities Extremities: Yes capillary refill normal, No clubbing, No cyanosis, No edema Neuro Neurologic: Yes conversant, Yes no focal neuro deficits, Yes cooperative, Yes normal cognition, Yes normal coordination, Yes normal concentration, Yes understands questions Lymph Lymphatic: No lymphadenopathy, No tenderness, No cervical adenopathy, No axillary adenopathy Psych Appearance: Positive grossly normal, eye contact and well kempt Mental Status: Positive mental status grossly normal Mood: Positive congruent mood Affect: Positive normal affect Coding Level of Care Code Off vis,est,level 3 Diagnoses Chronic obstructive pulmonary disease, unspecified COPD type J44.9 COPD type: unspecified COPD 11/08/17 1002 <Electronically signed by Minerva WORTHINGTON> Date Minerva WORTHINGTON Cosigner Signature: Date (if applicable) CC: Miseal Solares MD PULMONARY VISIT REPORT Observed: 10/04/2017 Status: F Source: [place] 11:33 AM [facility] Pulmonary Medicine of [address] [place] [address] OFFICE VISIT Date of Service: 10/04/17 MR#: [id number] Acct: [id number] Name: ABDIAS ROMO Rep #: [id number] : 1955 Provider: Minerva Colon Age/Sex: 62/M Location: [facility] Status: Signed Assessment AND Plan 1. Chronic obstructive pulmonary disease, unspecified COPD type J44.9 Status Chronic Plan The patient may be experiencing side effects from the long- acting beta agonist portion of the Symbicort, therefore I am going to trial him on a straight inhaled steroid alone. He was given a sample of an inhaled steroid today, and a one-month free coupon. The patient does pay for his medical care [id number], we will attempt to find the most affordable medication for him once to identify the maintenance inhaler that provides him with the most relief and has the least side effects. Since he was started on new medication today he will follow-up in the office in 1 month to determine his response to this new inhaler. He has been encouraged to contact the office meantime if he develops any new or worsening symptoms or side effects from this inhaler. Plan Detail Other Medications New: fluticasone furoate 200 mcg/actuation (Arnuity Ellipta) administ1 inh Inhalation QDAY er at approximately the same time(s) each day Follow Up 1 Month (CSM) HPI 6 wk FU: Chief Complaint: Shortness of breath HPI Comments Details: This patient is here today to follow-up after recently being started on a new medication. He is ambulatory and currently on room air. He has not been seen in the ED urgent care since his last office visit. He has not required treatment or any breathing problems with antibiotics. At his last office visit he was started on Symbicort, 2 puffs twice daily. He reports that after after beginning the medication twice daily he noticed an onset of vertigo and an increase in his blood pressure. He stopped taking the Symbicort for 4 days and felt that his symptoms improved. He resumed taking the Symbicort but only using it 1 puff daily. He continues to have a small amount of vertigo as well as continued hypertension. He reports that since beginning the Symbicort he has needed to use his rescue inhaler less frequently. When he experiences shortness of breath, he utilizes the Proventil rescue inhaler and receives temporary relief of his symptoms. He denies any cough or wheezing. He denies any chest tightness, chest pain or palpitations. He denies any fever, chills or body aches. He does not have any purulent sputum production and denies any hemoptysis. See complete review of systems. He does report that he noticed some bloody drainage from his right ear, and some ear congestion as well. Is not using [id number] medications for this ear fullness or bloody drainage. Intake Vital Signs10/04/17 Body Mass Index (BMI) 41.8 10/04/17 Blood Pressure 114/80 10/04/17 Height 5 ft 9 in 10/04/17 Weight: 285 lb Intake Visit Reasons: 6 wk FU Accompanied by: Self Allergies Penicillins Allergy (Verified 10/04/17 09:11) Unknown Medications warfarin 1 mg tablet 2 mg PO 4XW tab 07/07/17 [History Confirmed 10/04/17] warfarin 1 mg tablet 3 mg PO .3XW tab 07/07/17 [History Confirmed 10/04/17] aspirin 81 mg tablet,delayed release 81 mg PO QDAY 08/05/17 [History Confirmed 10/04/17] metoprolol succinate ER 100 mg tablet,extended release 24 hr 100 mg PO QDAY #90 tab 08/13/17 [Rx Confirmed 10/04/17] niacin ER 500 mg tablet,extended release 24 hr 500 mg PO QHS #90 tab 08/13/17 [Rx Confirmed 10/04/17] potassium chloride ER 20 mEq tablet,extended release(part/cryst) 20 meq PO QDAY #90 tab 08/13/17 [Rx Confirmed 10/04/17] ramipril 10 mg capsule 10 mg PO QDAY #90 cap 08/13/17 [Rx Confirmed 10/04/17] spironolactone 50 mg tablet 50 mg PO QDAY #90 tab 08/13/17 [Rx Confirmed 10/04/17] warfarin 1 mg tablet 1 mg PO QDAY #100 tab 08/13/17 [Rx Confirmed 10/04/17] warfarin 5 mg tablet 5 mg PO QDAY #90 tab 08/13/17 [Rx Confirmed 10/04/17] fluticasone 50 mcg/actuation nasal spray,suspension 2 spray INTRANASAL QDAY #1 device 08/24/17 [Rx Confirmed 10/04/17] albuterol sulfate HFA 90 mcg/actuation aerosol inhaler 2 puff INHALATION Q4H PRN g 10/04/17 [History Confirmed 10/04/17] budesonide-formoterol HFA 160 mcg-4.5 mcg/actuation aerosol inhaler 2 puff INHALATION Q12H 10/04/17 [History Confirmed 10/04/17] fluticasone furoate 200 mcg/actuation blister powder for inhalation 1 inh INHALATION QDAY #30 ea 10/04/17 [Rx Confirmed 10/04/17] PFS Medical History Atherosclerosis of king salmon coronary artery of king salmon heart without angina pectoris (Chronic) Obesity (Chronic) Breathing-related sleep disorder (Chronic) COPD (chronic obstructive pulmonary disease) (Chronic) Lung nodule (Chronic) Snoring (Chronic) Carotid bruit (Chronic) Aortic valve, bicuspid (Chronic) Aortic aneurysm, thoracic (Chronic) Cardiovascular disease (Chronic) Aortic valve disease (Chronic) CAD (coronary artery disease) (Chronic) HTN (hypertension) (Chronic) Hypokalemia (Chronic) HLD (hyperlipidemia) (Chronic) Surgical History H/O aortic valve replacement (Chronic 06/2004) History of left heart catheterization (LHC) (Resolved) History of right and left heart catheterization (Resolved) Family History Father , age 60 Myocardial infarction Hypertension Mother CAD (coronary artery disease) Hypertension HLD (hyperlipidemia) Brother Hypertension Sister Cancer Bone Cancer Social History Smoking Status: Never smoker alcohol intake: current alcohol intake frequency: holidays/special occasions only Alcohol type: beer, wine substance use type: does not use caffeine: Yes Type: coffee Number of servings: 3 what type of physical activity do you participate in: none seatbelt use: always do you feel safe at home: Yes Review of Systems Const CONSTITUTIONAL: Positive headache(s); negative anorexia, body ache, chills, daytime sleepiness, fever(s), night sweats, oral thrush, stops breathing during sleep, weight loss, sleeping in chair, fatigue, weight loss, weight gain, frequent colds, seasonal allergies, other or orthopnea EETM Ear Nose Throat Mouth: Positive hearing normal, ear pain (rt inner ear, bleeding noted with cleaning ear ) and headache(s); negative hard of hearing, hoarseness, dry mouth in morning, change in vision, itchy eyes, eye pain, swallowing Difficulty, nose bleed, mouth pain, nasal congestion, nasal discharge, post nasal drip, sinus pain, sinus pressure, sore throat or other Cardio Cardiovascular: Negative chest pain, chest pain at rest, chest pain with activity, irregular heart rhythm, edema, shortness of breath when lying down, palpitations, murmur or other Resp Respiratory: Positive as per HPI, shortness of breath (improved) and inhalers; negative pain with cough, wheezing, chest congestion, cough, chest tightness, pain on inspiration, increase use of rescue inhalers, snoring, apnea or other Gastro Gastrointestional: Negative bloody stools, change in appetite, difficulty swallowing, reflux, hematemesis, melena stool, loose stool, constipation or other Genitourinary: Negative blood in urine, nocturia, pain with urination or other Musc Musculoskeletal: Negative body pain, back pain, neck pain or other Skin/Breast Skin/Breast: Negative dry skin, itching, rash, unusual bruising, breast lump or other Neuro Neurological: Negative restless legs, confusion, weakness or other Psych Psychocological: Negative abnormal sleep pattern, anxiety, thoughts of hurting self/others, hopelessness or other Lymph Lymphatic: Negative easy bleeding, easy bruising, swollen lymph nodes or other Exam Const Constitutional: Positive conversant, cooperative, in no acute respiratory distress, healthy appearing, well developed, well nourished, good hygiene and obese Head Head: Positive normocephalic and atraumatic; negative cyanosis of lips/distal nose Eyes Eye: Positive clear conjunctiva and nystagmus; negative scleral abnormality Ears Ear: Positive hearing normal, external ears normal, TM normal on the left, TM normal on the right and other (small amount of fresh bloody drainage in the right ear canal); negative hard of hearing Nose Nose: Positive external nose normal and no nasal discharge; negative epistaxis Mouth Mouth: Positive oral mucosae normal, no lesions, good dentition and posterior oropharynx is adequate; negative post nasal drip, malodorous breath or oral thrush present Mallampati Score: II: Mallampati Score Neck Neck: Positive normal visual inspection, full ROM, trachea midline, thick neck and male neck greater than 43 cm (17 in); negative lymphadenopathy, JVD or tender Chest Wall Chest: Positive normal inspection of the chest and symmetric chest movement; negative increased A/P diameter Resp lung sounds: Positive clear to auscultation, good air exchange, normal expiratory time and normal respiratory effort; negative diminished, wheezes, rhonchi, rales, dullness to percussion or wheeze present on forced exhalation Cardio Cardiac: Positive regular rate, regular rhythm, S1 normal and S2 normal; negative murmur GI GI: Positive normal to inspection, normal bowel sounds and obese; negative distended Genitourinary: Positive deferred Musc Musculoskeletal: Positive steady gait and ROM normal; negative kyphosis or scoliosis Skin Pulmonary Skin Exam: Positive intact; negative rash, lesion, ulcers, erythema, scaly or dermal atrophy Pulses Pulse: Yes pulses normal x4 extremities Extremities Extremities: Yes capillary refill normal, No clubbing, No cyanosis, No edema, No stasis dermatitis Neuro Neurologic: Yes conversant, Yes no focal neuro deficits, Yes cooperative, Yes normal cognition, Yes normal coordination, Yes normal concentration, Yes understands questions Lymph Lymphatic: No lymphadenopathy, No tenderness, No cervical adenopathy, No axillary adenopathy Psych Appearance: Positive grossly normal, eye contact and well kempt Mental Status: Positive mental status grossly normal Mood: Positive congruent mood Affect: Positive normal affect Coding Level of Care Code Off vis,est,level 3 Diagnoses Chronic obstructive pulmonary disease, unspecified COPD type J44.9 COPD type: unspecified COPD 10/04/17 1133 <Electronically signed by Minerva WORTHINGTON> Date Minerva WORTHINGTON Cosigner Signature: Date (if applicable) CC: Misael Solares MD PROTHROMBIN TIME W/INR Collected: 09/27/2017 Status: F Source: [place] 1:28 PM [facility] Order Comment: Order Date: 12/21/16 Order Info: [id number] - *PT/INR - Standing Order Comments: Standing Order-Reason: TYPE CODE TESTS RESULT OUT OF RANGE REFERENCE UNITS LAB L300.4150 11.7-14.9 SECONDS High PROTIME 28.9 LAB L300.4200 Normal INR 2.7 Performed By: #### L300.3900 #### [facility] [address] [place], [address] PULMONARY VISIT REPORT Observed: 08/24/2017 Status: F Source: [place] 11:08 AM [facility] of [place] [address] [place], [place] [address] OFFICE VISIT Date of Service: 08/24/17 MR#: [id number] Acct: [id number] Name: ABDIAS ROMO Rep #: [id number] : 1955 Provider: Geovani Calloway D.O. Age/Sex: 62/M Location: [email or web address] Status: Signed Assessment AND Plan 1. COPD (chronic obstructive pulmonary disease) J44.9 Plan The patient is a lifelong non-smoker, but did have a significant obstructive ventilatory defect noted on PFTs from September of this year. He was previously being treated for asthma by Dr. Zee. He has had adverse effects to the use of inhaled LAMA medications. Given that patient could be experiencing an overlap syndrome, will provide him with samples for Symbicort to be trialed empirically. The patient will be continued on his rescue inhaler as ordered. He will have short interval follow-up with our nurse practitioner to assess symptom response to therapy. 2. Lung nodule R91.1 Plan The patient's most recent CT chest demonstrated a stable appearing 8.4 mm noncalcified nodule in the right lower lobe. This nodule has remained stable on several chest imaging studies today. He would be considered a low risk patient, for which repeat chest imaging could be obtained in 18-24 months. Fleishner society recommendations: *nonsolid, ground glass, or partially solid nodules may require longer follow up to exclude indolent adenocarcinoma. Low Risk: (minimal or absent smoking): < 4 mm: No follow up needed >4-6 mm: CT at 12 months, if no change then no further follow up needed >6-8 mm: Initial CT at 6-12 months, then 18-24 months if no change >8 mm: CT at 3, 9, and 24 months, consider dynamic contrast CT, PET, or bx High Risk: < 4 mm: CT at 12 months, if no change then no follow up needed >4-6 mm: initial CT at 6-12 months, then 18-24 months if no change >6-8 mm: CT at 3-6 months, then at 9-12 months, then at 24 months if no change >8 mm: CT at 3, 9, and 24 months, consider dynamic contrast CT, PET, or bx 3. Obesity E66.9 Plan Weight loss through dietary modification and a graded exercise regimen is strongly encouraged. 4. Sleep disorder breathing G47.30 Plan The patient has symptoms concerning for underlying sleep disordered breathing and would certainly benefit from evaluation via polysomnogram, but has refused testing in the past. 5. Allergic rhinitis J30.9 Plan The patient will be started empirically on Flonase 2 sprays in each nostril daily to address his current symptoms including postnasal drip and frequent sneezing. Plan Detail Other Medications New: fluticasone 50 mcg/actuation (Flonase Allergy Relief) adminis2 sprays Intranasal QDAY ter into each nostril Follow Up 6 Weeks (CSM) HPI HPI Comments Details: The patient is a 62-year-old male who presents to the clinic today for a routine scheduled follow-up office visit. If you recall, the patient was previously being followed by Dr. Newman at [facility]. He was last seen by him in August 2016. The patient presented to me with an established diagnosis of COPD, for which he was prescribed Proventil. He also had a known history of pulmonary nodules, which were being followed with serial chest imaging. He does have a history of aortic valve replacement in 2004 at the [facility]. Noncontrasted chest CT from November 2016 revealed the presence of a stable appearing 8.7 mm solid nodule in the medial superior segment of the right lower lobe. Pulmonary function testing completed in September 2016 revealed evidence of a partially reversible severe large airways obstructive ventilatory defect. There was a mild reduction in diffusing capacity measurement noted. Over last 2 years, there was an appreciable decrease in the patient's FEV1. The patient also had symptoms concerning for underlying sleep disordered breathing, but refused to undergo any additional workup due to fears of her claustrophobia. He is a lifelong non-smoker. 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 He also has reported seasonal allergic rhinitis, with symptoms typically worse in the spring and late fall months. He has lived in [place] his entire life. A repeat CT chest with contrast, completed in May 2017, revealed a stable appearing 8.4 mm noncalcified nodule in the right lower lobe. Today, the patient reports that he is no longer utilizing the Spiriva he was placed on previously, as he believes led to changes in his vision. He does report having utilized Advair previously, but does not recall if it led to symptom improvement. He does report that with the use of his Proventil inhaler, he does achieve symptom improvement. He reports the presence of exertional shortness of breath along with intermittent chest tightness and wheezing. He does have a chronic cough, which is intermittently productive of sputum. He is currently utilizing his rescue inhaler 1-2 times per day. He does report the presence of postnasal drip and frequent sneezing. He denies fevers, chills or night sweats. His weight has been stable. He denies chest pain, dizziness or lightheadedness. Intake Vital Signs08/24/17 Height 5 ft 9 in 08/24/17 Weight: 283 lb Intake Visit Reasons: 3 M FU Accompanied by: Allergies Penicillins Allergy (Verified 08/24/17 08:50) Unknown Medications warfarin 1 mg tablet 2 mg PO 4XW tab 07/07/17 [History Confirmed 08/24/17] warfarin 1 mg tablet 3 mg PO .3XW tab 07/07/17 [History Confirmed 08/24/17] aspirin 81 mg tablet,delayed release 81 mg PO QDAY 08/05/17 [History Confirmed 08/24/17] tiotropium bromide 2.5 mcg/actuation mist for inhalation 2 puff INHALATION QDAY 08/05/17 [History Confirmed 08/24/17] metoprolol succinate ER 100 mg tablet,extended release 24 hr 100 mg PO QDAY #90 tab 08/13/17 [Rx Confirmed 08/24/17] niacin ER 500 mg tablet,extended release 24 hr 500 mg PO QHS #90 tab 08/13/17 [Rx Confirmed 08/24/17] potassium chloride ER 20 mEq tablet,extended release(part/cryst) 20 meq PO QDAY #90 tab 08/13/17 [Rx Confirmed 08/24/17] ramipril 10 mg capsule 10 mg PO QDAY #90 cap 08/13/17 [Rx Confirmed 08/24/17] spironolactone 50 mg tablet 50 mg PO QDAY #90 tab 08/13/17 [Rx Confirmed 08/24/17] warfarin 1 mg tablet 1 mg PO QDAY #100 tab 08/13/17 [Rx Confirmed 08/24/17] warfarin 5 mg tablet 5 mg PO QDAY #90 tab 08/13/17 [Rx Confirmed 08/24/17] fluticasone 50 mcg/actuation nasal spray,suspension 2 spray INTRANASAL QDAY #1 device 08/24/17 [Rx Confirmed 08/24/17] [facility] Medical History Atherosclerosis of king salmon coronary artery of king salmon heart without angina pectoris (Chronic) Obesity (Chronic) Breathing-related sleep disorder (Chronic) COPD (chronic obstructive pulmonary disease) (Chronic) Lung nodule (Chronic) Snoring (Chronic) Carotid bruit (Chronic) Aortic valve, bicuspid (Chronic) Aortic aneurysm, thoracic (Chronic) Cardiovascular disease (Chronic) Aortic valve disease (Chronic) CAD (coronary artery disease) (Chronic) HTN (hypertension) (Chronic) Hypokalemia (Chronic) HLD (hyperlipidemia) (Chronic) Surgical History H/O aortic valve replacement (Chronic 06/2004) History of left heart catheterization (LHC) (Resolved) History of right and left heart catheterization (Resolved) Family History Father , age 60 Myocardial infarction Hypertension Mother CAD (coronary artery disease) Hypertension HLD (hyperlipidemia) Brother Hypertension Sister Cancer Bone Cancer Social History Smoking Status: Never smoker alcohol intake: current alcohol intake frequency: holidays/special occasions only Alcohol type: beer, wine substance use type: does not use caffeine: Yes Type: coffee Number of servings: 3 what type of physical activity do you participate in: none seatbelt use: always do you feel safe at home: Yes Review of Systems Const CONSTITUTIONAL: Negative anorexia, body ache, chills, daytime sleepiness, fever(s), night sweats, oral thrush, stops breathing during sleep, weight loss, sleeping in chair, fatigue, weight loss, weight gain, frequent colds, seasonal allergies, other, headache(s) or orthopnea EETM Ear Nose Throat Mouth: Positive hearing normal; negative hard of hearing, hoarseness, dry mouth in morning, change in vision, itchy eyes, eye pain, swallowing Difficulty, ear pain, nose bleed, headache(s), mouth pain, nasal congestion, nasal discharge, post nasal drip, sinus pain, sinus pressure, sore throat or other Cardio Cardiovascular: Positive murmur; negative chest pain, chest pain at rest, chest pain with activity, irregular heart rhythm, edema, shortness of breath when lying down, palpitations or other Resp Respiratory: Positive as per HPI; negative shortness of breath, pain with cough, wheezing, chest congestion, cough, chest tightness, pain on inspiration, inhalers, increase use of rescue inhalers, snoring, apnea or other Gastro Gastrointestional: Negative bloody stools, change in appetite, difficulty swallowing, reflux, hematemesis, melena stool, loose stool, constipation or other Genitourinary: Negative blood in urine, nocturia, pain with urination or other Musc Musculoskeletal: Negative body pain, back pain, neck pain or other Skin/Breast Skin/Breast: Negative dry skin, itching, rash, unusual bruising, breast lump or other Neuro Neurological: Negative restless legs, confusion, weakness or other Psych Psychocological: Negative abnormal sleep pattern, anxiety, thoughts of hurting self/others, hopelessness or other Lymph Lymphatic: Negative easy bleeding, easy bruising, swollen lymph nodes or other Exam Const Constitutional: Positive conversant, cooperative, in no acute respiratory distress, well developed, well nourished, good hygiene and obese is present at today's office visit Head Head: Positive normocephalic and atraumatic; negative cyanosis of lips/distal nose Eyes Eye: Positive clear conjunctiva; negative nystagmus or scleral abnormality Ears Ear: Positive hearing normal; negative hard of hearing Nose Nose: Positive external nose normal; negative epistaxis Mouth Mouth: Positive oral mucosae normal and posterior oropharynx is adequate; negative no lesions or post nasal drip Neck Neck: Positive normal visual inspection, trachea midline and thick neck; negative lymphadenopathy Chest Wall Chest: Positive symmetric chest movement Normal AP diameter. Resp lung sounds: Positive clear to auscultation and good air exchange; negative wheezes, rhonchi or rales Cardio Cardiac: Positive regular rate, regular rhythm, S1 normal, S2 normal and murmur; negative rub or gallop Systolic click present GI GI: Positive normal bowel sounds and obese Soft without distention Genitourinary: Positive deferred Musc Musculoskeletal: Positive steady gait Skin Pulmonary Skin Exam: Positive intact; negative lesion, ulcers, dermal atrophy or rash Pulses Pulse: Yes Pedal pulses present: Extremities Extremities: No clubbing, No cyanosis, No edema Neuro Neurologic: Yes conversant, Yes no focal neuro deficits, Yes cooperative Lymph Lymphatic: No lymphadenopathy Psych Appearance: Positive grossly normal Mental Status: Positive mental status grossly normal Mood: Positive congruent mood Affect: Positive normal affect Coding Level of Care Code Off vis,est,level 3 Diagnoses COPD (chronic obstructive pulmonary disease) J44.9 Lung nodule R91.1 Obesity E66.9 Sleep disorder breathing G47.30 Allergic rhinitis J30.9 08/24/17 1108 <Electronically signed by Geovani Calloway DO> Date Geovani Calloway DO Cosigner Signature: Date (if applicable) CC: Misael Solares MD CARDIOLOGY VISIT Observed: 08/16/2017 Status: F Source: [place] REPORT 8:13 AM [facility] REPOSITORY [facility] [address] [place] [address] OFFICE VISIT Date of Service: 08/13/17 MR#: [id number] Acct: [id number] Name: ABDIAS ROMO Rep #: [id number] : 1955 Provider: SONG Zhang Age/Sex: 62/M [place] [facility] [place] Signed HPI 6 M FU: Details: ABDIAS ROMO, is a 62 M who presents to the office today for a current vascular outpatient follow-up. Patient has a history of bicuspid aortic valve status post aortic valve replacement with a [place] aortic prosthetic valve, mild aortic dilatation, mild coronary artery disease, hypertension, mild mitral valve prolapse, and hyperlipidemia. Pt. denies chest, arm, jaw, or neck discomfort. His exercise tolerance is stable but decreased d/t change in winter. Pt. denies symptoms of CHF, palpitations, lightheadedness, dizziness, near syncope, or syncopal episodes. Pt. denies edema or claudication issues. Pt. denies orthopnea, PND, fever, chills, blood in urine, blood in stool, myalgia, or unexplainable fatigue. Pt. states some gas pain. Echocardiogram from December 2016 showed an estimated ejection fraction of 60%, trivial mitral valve insufficiency, stable mechanical aortic valve prosthesis, and diastolic dysfunction. Heart catheterization from September 2006 showed minimal disease upwards to 30%. 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 Accompanied by: None Is patient in pain?: No Allergies Penicillins Allergy (Verified 08/13/17 13:11) Unknown Medications warfarin 1 mg tablet 2 mg PO 4XW tab 07/07/17 [History Confirmed 08/05/17] warfarin 1 mg tablet 3 mg PO .3XW tab 07/07/17 [History Confirmed 08/05/17] aspirin 81 mg tablet,delayed release 81 mg PO QDAY 08/05/17 [History Confirmed 08/05/17] tiotropium bromide 2.5 mcg/actuation mist for inhalation 2 puff INHALATION QDAY 08/05/17 [History Confirmed 08/05/17] metoprolol succinate ER 100 mg tablet,extended release 24 hr 100 mg PO QDAY #90 tab 08/13/17 [Rx Confirmed 08/13/17] niacin ER 500 mg tablet,extended release 24 hr 500 mg PO QHS #90 tab 08/13/17 [Rx Confirmed 08/13/17] potassium chloride ER 20 mEq tablet,extended release(part/cryst) 20 meq PO QDAY #90 tab 08/13/17 [Rx Confirmed 08/13/17] ramipril 10 mg capsule 10 mg PO QDAY #90 cap 08/13/17 [Rx Confirmed 08/13/17] spironolactone 50 mg tablet 50 mg PO QDAY #90 tab 08/13/17 [Rx Confirmed 08/13/17] warfarin 1 mg tablet 1 mg PO QDAY #100 tab 08/13/17 [Rx Confirmed 08/13/17] warfarin 5 mg tablet 5 mg PO QDAY #90 tab 08/13/17 [Rx Confirmed 08/13/17] Ejection fraction %: 60 to 64 PFSH Medical History Obesity (Chronic) Breathing-related sleep disorder (Chronic) COPD (chronic obstructive pulmonary disease) (Chronic) Lung nodule (Chronic) Snoring (Chronic) Carotid bruit (Chronic) Aortic valve, bicuspid (Chronic) Aortic aneurysm, thoracic (Chronic) Cardiovascular disease (Chronic) Aortic valve disease (Chronic) CAD (coronary artery disease) (Chronic) HTN (hypertension) (Chronic) Hypokalemia (Chronic) HLD (hyperlipidemia) (Chronic) Surgical History H/O aortic valve replacement (Chronic 06/2004) History of left heart catheterization (LHC) (Resolved) History of right and left heart catheterization (Resolved) Family History Father , age 60 Myocardial infarction Hypertension Mother CAD (coronary artery disease) Hypertension HLD (hyperlipidemia) Brother Hypertension Sister Cancer Bone Cancer Social History Smoking Status: Never smoker alcohol intake: current alcohol intake frequency: holidays/special occasions only Alcohol type: beer, wine substance use type: does not use caffeine: Yes Type: coffee Number of servings: 3 what type of physical activity do you participate in: none seatbelt use: always do you feel safe at home: Yes ROS Const Const: Negative for fatigue, weakness, body ache, fever(s) or chills ENT ENT: Negative for dizziness Cardio Chest Pain: No Palpitations: Positive for No Edema: None Muscle aches with walking: None Resp Respiratory: Negative for SOB with activity, SOB at rest, SOB orthopnea\SOB lying down or paroxysmal nocturnal dyspnea GI GI: Negative nausea, black,tarry stools, bright, red blood in stools or vomiting blood/hematemesis : Negative for hematuria or frequent nighttime urination/ nocturia Musc Musc: Negative for muscle aches/ myalgia Neuro Neuro: Negative for weakness, Negative for dizziness, Negative for lightheadedness, Negative for near syncope, Negative for syncope, Negative for orthostatic symptoms Endo Endo: Negative for fatigue Cardiology Exam Const Appearance: cooperative, healthy appearing, comfortable and no acute distress Orientation: alert, awake and oriented x3 Head Head: normal to inspection Mouth: oral mucosae normal Neck Neck: no JVD and normal visual inspection Carotids: normal carotid upstroke Chest Chest inspection: normal inspection of the chest and normal respiratory effort Auscultation: Bilateral: Clear to Auscultation Cardio Rate: regular rate Rhythm: regular rhythm Heart sounds: murmur (systolic click, right sternal border); negative rub or gallop GI GI: normal to inspection Neuro General: alert, awake, oriented x3 and CN's II-XI intact bilaterally Skin Skin: no rashes or lesions noted Extremities Pulses: Normal: Right Posterior Tibial Pulse, Left Posterior Tibial Pulse, Right Radial Pulse, Left Radial Pulse Lower Extremity Edema: None: Bilateral Psych Psychological: normal affect Assessment AND Plan 1. Atherosclerosis of [place] coronary artery of [place] heart without angina pectoris I25.10 ELIN Lancaster Patient's most recent heart catheterization from September 2006 is noted above. Patient denies any chest pain, arm pain, jaw pain, neck pain, shortness of breath, or fatigue suggestive of angina at this time. We will continue to monitor this. We will not make any medication regimen changes and will continue risk factor modification. 2. H/O aortic valve replacement Z95.2 [place] [facility] mechanical valve 06/2004; ELIN Lancaster This appears stable her most recent echocardiogram. Patient denies any secondary symptoms from this. We will continue to monitor this through history, exam, and repeat echocardiogram as needed. Patient will continue with antibiotic prophylaxis. 3. Essential hypertension I10 ELIN Lancaster Patient's blood pressure is well-controlled today in the office. We will continue to monitor this. We will not make any medication regimen changes. 4. Thoracic aortic aneurysm without rupture I71.2 ELIN Lancaster This appears stable via most recent echocardiogram. We will continue to control heart rate and blood pressure for this. We will continue to monitor at this with repeat echocardiogram. 5. Mixed hyperlipidemia E78.2 ELIN Lancaster Patient's most recent lipid panel from June 2017 showed cholesterol: 153, HDL: 40, LDL: 72, and triglycerides: 204. Patient will continue current cholesterol lowering medication. He is scheduled to repeat both liver and lipid profile in December 2017. We will wait for the results of these tests for further recommendations. 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 Plan Detail Other Medications New: Additional Comments - ELIN Chery Discussed the above patient with Dr. Iyer, he agrees with the plan of care. Thank you for allowing us to participate in the patients plan of care, if you have any questions please do not hesitate to call. This note was generated using a voice recognition system and there may be incorrect words, spelling or punctuation that were not noted when reviewing the office note prior to saving. 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 08/13/17 1647 <Electronically signed by Alberto LALC> Date Alberto LALC 08/16/17 0813<Electronically signed by Blu Iyer MD> Cosigner Signature: Date (if applicable) Blu Iyer MD CC: Misael Solares MD ALLERGIES ALLERGIES DATE TYPE / CODE NAME / CODE REACTION SEVERITY SOURCE 06/24/2018 Drug Penicillins/ Unknown Unknown [facility] Allergy/4160 [id number]([facility] [address](SNOMED XNORM) Repository CT) ENCOUNTERS ENCOUNTERS ADMIT/DISCHARGE ACCOUNT ADMITTING ENCOUNTER LOCATION SOURCE NUMBER CLASS 08/08/2018 [id number] Ambulatory [facility] 9 [facility] ing:LAB Repository 07/04/2018/ [id number] Ambulatory [facility] 8 5 [facility] ing:LAB Repository 06/24/2018/ [id number] Ambulatory [facility] 8 [place] Repository 06/23/2018/ [id number] Ambulatory [facility]:B [facility] 8 7 [facility] Repository 05/18/2018/ [id number] Ambulatory [facility] 8 1 [facility] ing:LAB Repository 05/18/2018/ [id number] Ambulatory [facility]:B [facility] 8 0 [facility] Repository 04/26/2018 [id number] Ambulatory [facility]:B [facility] 2 [place] Repository 04/12/2018/ [id number] Ambulatory Jeremy [facility] 8 8 [facility] ing:LAB Repository 03/08/2018/ [id number] Ambulatory [facility] 8 0 [facility] ing:LAB Repository 02/16/2018 [id number] Ambulatory [facility]MSBuilding:B Jeremy 6 [place] Repository 11/08/2017/ [id number] Ambulatory [facility]MSBuilding:B Jeremy 8 9 [place] Repository 10/04/2017/ [id number] Ambulatory [facility]:B Jeremy 8 2 [facility] Repository 09/27/2017 [id number] Ambulatory Jeremy [facility] 5 [facility] ing:LAB Repository 08/24/2017/ [id number] Ambulatory [facility]Building:B [facility] 8 3 [facility] Repository 08/13/2017/ [id number] Ambulatory BMSBuilding:B [facility] 8 8 [place] Repository PAYERS PAYERS ENCOUNTER GUARANTOR PAYER SUBSCRIBER SOURCE 08/08/2018 ABDIAS A Primary NOT GIVENUNK [facility] [id number] CR Insurance:SELF PAY [address] [place] [address]Dig: Number: Effective Repository Date:2018-07-18 () 07/04/2018 ABDIAS A Primary NOT GIVENUNK [facility] [id number] CR Insurance:SELF PAY [address] [place] [address]Izy: Number: Effective Repository Date:2018-05-19 () 06/24/2018 ABDIAS A Primary NOT GIVENUNK [facility] [id number] CR Insurance:SELF PAY [address] [place] [address]Pnz: Number: Effective Repository Date:2018-04-26 () 06/23/2018 ABDIAS A Primary NOT GIVENUNK [facility] [id number] CR Insurance:SELF PAY [address] [place] [address]Bkv: Number: Effective Repository Date:2018-06-17 () 05/18/2018 ABDIAS A Primary NOT GIVENUNK [facility] [id number] Insurance:SELF PAY [address], Number: Effective Repository [place] [id number]: Date:2018-04-20 () 05/18/2018 ABDIAS A Primary NOT GIVENUNK Jeremy [id number] Insurance:SELF PAY [address], Number: Effective Repository [place] [id number]: Date:2018-04-25 () 04/26/2018 ABDIAS A Primary NOT GIVENUNK [facility] [id number] Insurance:SELF PAY [address], Number: Effective Repository [place] [phone]: Date:2018-04-26 () 04/12/2018 ABDIAS A Primary NOT GIVENUNK [facility] [id number] CR Insurance:SELF PAY [address] [place] [address]Zno: Number: Effective Repository Date:2018-03-22 () 03/08/2018 ABDIAS A Primary NOT GIVENUNK Jeremy [id number] CR Insurance:SELF PAY [address] [place] [address]Plb: Number: Effective Repository Date:2018-02-18 () 02/16/2018 ABIDAS A Primary NOT GIVENUNK [facility] [id number] CR Insurance:SELF PAY [address] [place] [address]Ssf: Number: Effective Repository Date:2018-02-16 () 11/08/2017 ABDIAS A Primary NOT GIVENUNK [facility] [id number] CR Insurance:SELF PAY [address] [place] [address]Fis: Number: Effective Repository Date:2017-11-04 () 10/04/2017 ABDIAS A Primary NOT GIVENUNK [facility] [id number] CR Insurance:SELF PAY [address] [place] [address]Qtp: Number: Effective Repository Date:2017-09-30 () 09/27/2017 ABDIAS A Primary NOT GIVENUNK [facility] [id number] CR Insurance:SELF PAY [address] [place] [address]Njm: Number: Effective Repository Date:2017-09-27 () 08/24/2017 ABDIAS A Primary NOT GIVENUNK [facility] [id number] CR Insurance:SELF PAY [address] [place] [address]Ohs: Number: Effective Repository Date:2017-06-28 () 08/13/2017 ABDIAS A Primary NOT GIVENUNK [facility] [id number] CR Insurance:SELF PAY [address] [place] [address]Vno: Number: Effective Repository Date:2017-08-20 ()
== END 2018-08-08 15:00 | disposition home or self-care (01) ==
LOC: LAB 14:14
PROVIDERS: Family Provider Family Medicine; PCP Family Medicine; Referring Provider Internal Medicine Cardiovascular Disease; Visit Provider Internal Medicine Cardiovascular Disease
DX: Q23.1 Congenital insufficiency of aortic valve (principal); I71.2 Thoracic aortic aneurysm, without rupture; Z79.01 Long term (current) use of anticoagulants; Z95.2 Presence of prosthetic heart valve
CPT/HCPCS: 36415; 85610

== ENCOUNTER → 2018-10-06 09:38 | Outpatient (CLI) | payer SELFPAY ==
[2018-08-19 07:46] VITALS: BMI 41.5
[2018-10-06 10:46] VITALS: PULSE 101; PULSE 107; PULSE 108; PULSE 110; PULSE 112; PULSE 126; PULSE 90; PULSE 97; O2SAT 91; O2SAT 92; O2SAT 93; O2SAT 96
--- NOTE | 2018-10-07 06:56 | PCM.PSN.6M ---
PSN 6 Minute Walk Test - 6 Minute Walk Test 6 Minute Walk Test: 6 Minute Walk Test PSN:6-Minute Walk Test Start: 10/06/18 10:45 Freq: Status: Active Protocol: [id number] Document 10/06/18 10:46 FR (Rec: 10/06/18 10:49 FR [id number]) 6 Minute Walk Test Date Performed 10/06/18 Time Performed 10:30 Height 5 ft 9 in Weight: 127.006 kg Weight in Pounds 280.0 lbs Assistive device used: None Pre-test Oxygen Delivery Method Room Air Pulse Ox (%) 93 Pulse Rate (60-100 beats/min) 90 Dyspnea Dasha Scale (0-10) 7 Exertion Dasha Scale (6-20) 12 1st minute Oxygen Delivery Method Room Air Pulse Ox (%) 92 Pulse Rate (60-100 beats/min) 101 H 2nd minute Oxygen Delivery Method Room Air Pulse Ox (%) 91 Pulse Rate (60-100 beats/min) 110 H 3rd minute Oxygen Delivery Method Room Air Pulse Ox (%) 92 Pulse Rate (60-100 beats/min) 108 H 4th minute Oxygen Delivery Method Room Air Pulse Ox (%) 93 Pulse Rate (60-100 beats/min) 107 H 5th minute Oxygen Delivery Method Room Air Pulse Ox (%) 92 Pulse Rate (60-100 beats/min) 126 H 6th minute Oxygen Delivery Method Room Air Pulse Ox (%) 93 Pulse Rate (60-100 beats/min) 112 H Dyspnea Dasha Scale (0-10) 8 Exertion Dasha Scale (6-20) 14 Post-test Oxygen Delivery Method Room Air Pulse Ox (%) 96 Pulse Rate (60-100 beats/min) 97 Full Laps Walked 17 Partial Lap, Number of Tiles Walked 18 Total Distance Walked (ft) 1021 - Interpretation Interpretation: The patient was able to ambulate 1021 feet over the course of 6 minutes on room air with no assistive devices or breaks. The patient did experience desaturation as low as 91% and a tachycardia of 126 bpm. These findings are consistent with a respiratory limitation exercise tolerance. - Recommendations Recommendations: No supplemental oxygen is indicated at this time. However, patient will need to be followed closely given level of desaturation.
--- NOTE | 2018-10-07 07:00 | PFTCOMP_ITS ---
COMPLETE PULMONARY FUNCTION TEST INTERPRETATION Brief HPI: Patient is a 63 year old male, currently under the care of Dr. Calloway, who presents to [facility] for complete pulmonary function tests secondary to diagnosis of COPD. Respiratory therapist reports good effort and reproducible results. Interpretation: Forced expiration spirometry shows no large airways obstructive ventilatory defect with an FEV1 of 62% predicted. There is no significant bronchodilator response by strict ATS criteria. Spirograms are of good quality and plateau normally. The respiratory flow volume loop shows decreased expiratory flow rates at high lung volumes consistent with small airways obstruction. Lung volumes by body plethysmography show a decreased total lung capacity at 5.1 L, 80% predicted. All other lung volumes are reduced symmetrically. Diffusion capacity by carbon monoxide is at the lower limit of normal at 77% predicted. The airway resistance is elevated. Compared to previous pulmonary function tests from 09/04/2014, there has been a significant reduction in FVC, FEV1, TLC and DLCO by approximately 20% each. 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
== END ==
PROVIDERS: Family Provider Family Medicine; PCP Family Medicine; Referring Provider Internal Medicine Critical Care Medicine; Visit Provider Internal Medicine Critical Care Medicine
DX: J44.9 Chronic obstructive pulmonary disease, unspecified (principal); M35.1 Other overlap syndromes
CPT/HCPCS: 94060; 94618; 94726; 94729

== ENCOUNTER 2018-10-06 10:39 | Outpatient (RCR) | payer SELFPAY ==
[2018-08-19 07:46] VITALS: BMI 41.5
[2018-10-06 11:54] LABS: International Normalized Ratio 2.8; Prothrombin Time (Protime)PT. 29.6 SECONDS (11.7-14.9)
== END 2018-10-06 11:00 | disposition home or self-care (01) ==
LOC: LAB 10:39
PROVIDERS: Family Provider Family Medicine; PCP Family Medicine; Referring Provider Internal Medicine Cardiovascular Disease; Visit Provider Internal Medicine Cardiovascular Disease
DX: Q23.1 Congenital insufficiency of aortic valve (principal); I71.2 Thoracic aortic aneurysm, without rupture; Z79.01 Long term (current) use of anticoagulants; Z95.2 Presence of prosthetic heart valve
CPT/HCPCS: 36415; 85610

== ENCOUNTER 2018-12-23 09:57 | Outpatient (RCR) | payer SELFPAY ==
[2018-08-19 07:46] VITALS: BMI 41.5
[2018-12-23 08:48] VITALS: BMI 41.8
[2018-12-23 11:07] LABS: International Normalized Ratio 2.9; Prothrombin Time (Protime)PT. 30.7 SECONDS (11.7-14.9)
== END 2019-01-15 12:00 | disposition home or self-care (01) ==
LOC: LAB 09:57
PROVIDERS: Physician Assistant Medical; Family Provider Family Medicine; PCP Family Medicine; Referring Provider Internal Medicine Cardiovascular Disease; Visit Provider Internal Medicine Cardiovascular Disease
DX: Q23.1 Congenital insufficiency of aortic valve (principal); I71.2 Thoracic aortic aneurysm, without rupture; Z79.01 Long term (current) use of anticoagulants; Z95.2 Presence of prosthetic heart valve
CPT/HCPCS: 36415; 85610

== ENCOUNTER → 2019-04-27 06:28 | Outpatient (CLI) | payer MEDICARE, OTHER, SELFPAY ==
--- NOTE | 2019-04-27 06:31 | CT_ITS ---
STUDY: CT CHEST WITHOUT CONTRAST REASON FOR EXAM: Male, [address] scan of the chest obtained on 05/28/2017 RADIATION DOSAGE (If Supplied By Facility): CTDIvol = ( 20.15 ) mGy, DLP = ( 785.45 ) mGycm TECHNIQUE: Transaxial imaging was performed without the administration of intravenous contrast material. Individualized dose optimization techniques were used for this CT. COMPARISON: Previous chest obtained on 05/28/2017 FINDINGS: In the medial aspect of the superior segment of the right lower lobe best seen on cut 57 is an 8.4 mm nodular density which was noted previously and is unchanged. Along the inferior aspect of this nodular density is some calcification indicating this nodular density represents a benign granuloma.. There is eventration of the left hemidiaphragm with subsegmental atelectasis seen left lung base. Calcifications are noted in the coronary arteries due to coronary calcific arteriosclerosis. The heart is otherwise normal. There is no demonstrated pleural abnormality. Normal mediastinum. Normal hilar regions. Normal unenhanced pulmonary arteries. Normal aorta arch and descending thoracic aorta. Normal osseous structures. There is no demonstrated abnormality of the visualized upper abdomen. CT/Chest without Contrast IMPRESSION: 1. Eventration of the left hemidiaphragm is again identified and is unchanged. 2. Benign 8.4 mm stable partly calcified granuloma in the superior segment of the right lower lobe. Electronically Signed: Alberto Delfin, at 10:21 EDT Tel , Service support ,
[2019-04-27 08:04] LABS: Absolute Lymphocyte Count 1.45 X10^3/uL (0.83-4.51); Absolute Neutrophil Count 5.4 X10^3/uL (2.0-7.7); Basophil# 0.06 X10^3/uL; Basophil% 0.7 % (0-1); Eosinophil# 0.13 X10^3/uL; Eosinophils% 1.6 % (0-5); Hematocrit 48.9 % (40-54); Hemoglobin 16.7 g/dL (13.0-16.5); Lymphocyte # 1.45 X10^3/ul (4.0); Mean Corp Hgb Conc 34.2 g/dL (32-36); Mean Corpuscular Hgb 32.1 pg (27.0-32.0); Mean Platelet Vol. 11.3 fl (6.2-12.0); Monocyte# 0.92 X10^3/uL; Monocyte% 11.4 % (0-10); NRBC Flagged by Analyzer 0 % (0-5); Neutrophil % 67.2 % (47-70); Platelet Count 190 K/mm3 (150-450); RBC Distribution Width CV 13.1 % (11.6-14.6); RBC Distribution Width SD 44.8 fl (35.1-43.9); White Blood Count 8.1 K/mm3 (4.4-11.0)
[2019-04-27 08:17] LABS: International Normalized Ratio 2.6
[2019-04-27 08:35] LABS: AST(SGOT) 18 U/L (15-37); Alanine Aminotransfer ALT/SGPT 28 U/L (16-61); Albumin, Serum 3.6 g/dL (3.2-5.0); Alkaline Phosphatase 66 U/L (45-117); Anion Gap 6 (5-15); BUN 18 mg/dL (7-18); BUN/Creat Ratio 18.2 RATIO (10-20); Calcium,Total 8.8 mg/dL (8.5-10.1); Chloride 107 mmol/L (98-107); Creatinine, Serum 0.99 mg/dL (0.70-1.30); EST Glomerular Filtration Rate 81 mL/min (>60); Est Glom Filt Rate - Afr Amer 98 mL/min (>60); Globulin 3.5 g/dL (2.2-4.2); Glucose 90 mg/dL (74-106); Potassium 4.3 mmol/L (3.5-5.1); Protein, Total 7.1 g/dL (6.4-8.2); Sodium Level 139 mmol/L (136-145)
[2019-04-27 08:45] LABS: Rheumatoid Factor < 10.0 IU/mL (<15)
[2019-04-28 16:11] LABS: ANTINUCLEAR ANTIBODIES DIRECT Negative (Negative)
[2019-05-01 12:37] LABS: CCP IgG Antibodies 30 units (0-19)
== END ==
PROVIDERS: Physician Assistant Medical; Family Provider Family Medicine; PCP Family Medicine; Referring Provider Internal Medicine Critical Care Medicine; Visit Provider Internal Medicine Critical Care Medicine
DX: Z79.01 Long term (current) use of anticoagulants (principal); R91.1 Solitary pulmonary nodule; I10 Essential (primary) hypertension; E78.5 Hyperlipidemia, unspecified; I25.10 Atherosclerotic heart disease of native coronary artery without angina pectoris
CPT/HCPCS: 36415; 71250; 80053; 85025; 85610; 86038; 86200; 86225; 86235; 86431

== ENCOUNTER 2019-05-31 07:33 | Outpatient (RCR) | payer MEDICARE, OTHER, SELFPAY ==
[2019-05-30 07:12] VITALS: BMI 41.8
[2019-05-31 08:53] LABS: International Normalized Ratio 2.9; Prothrombin Time (Protime)PT. 30.1 SECONDS (11.7-14.9)
== END 2019-05-31 18:00 | disposition home or self-care (01) ==
LOC: LAB 07:33
PROVIDERS: Family Provider Family Medicine; PCP Family Medicine; Referring Provider Internal Medicine Cardiovascular Disease; Visit Provider Internal Medicine Cardiovascular Disease
DX: E78.5 Hyperlipidemia, unspecified (principal); I10 Essential (primary) hypertension; I25.10 Atherosclerotic heart disease of native coronary artery without angina pectoris; I71.2 Thoracic aortic aneurysm, without rupture; Q23.1 Congenital insufficiency of aortic valve; Z79.01 Long term (current) use of anticoagulants; Z79.899 Other long term (current) drug therapy; Z95.2 Presence of prosthetic heart valve
CPT/HCPCS: 36415; 85610

== ENCOUNTER 2019-07-24 13:17 | Outpatient (RCR) | payer MEDICARE, OTHER, SELFPAY ==
[2019-05-30 07:12] VITALS: BMI 41.8
[2019-07-24 13:58] LABS: International Normalized Ratio 2.7; Prothrombin Time (Protime)PT. 28.8 SECONDS (11.7-14.9)
== END 2019-07-24 18:00 | disposition home or self-care (01) ==
LOC: LAB 13:17
PROVIDERS: Family Provider Family Medicine; PCP Family Medicine; Referring Provider Internal Medicine Cardiovascular Disease; Visit Provider Internal Medicine Cardiovascular Disease
DX: Z79.01 Long term (current) use of anticoagulants (principal)
CPT/HCPCS: 36415; 85610

== ENCOUNTER 2019-08-25 13:56 | Outpatient (RCR) | payer MEDICARE, OTHER, SELFPAY ==
[2019-05-30 07:12] VITALS: BMI 41.8
[2019-08-25 15:17] LABS: International Normalized Ratio 2.7
== END 2019-08-25 18:00 | disposition home or self-care (01) ==
LOC: LAB 13:56
PROVIDERS: Family Provider Family Medicine; PCP Family Medicine; Referring Provider Internal Medicine Cardiovascular Disease; Visit Provider Internal Medicine Cardiovascular Disease
DX: Z79.01 Long term (current) use of anticoagulants (principal)
CPT/HCPCS: 36415; 85610

== ENCOUNTER → 2019-09-05 09:23 | Outpatient (CLI) | payer MEDICARE, OTHER, SELFPAY ==
[2019-09-05 07:49] VITALS: BMI 41.8
[2019-09-05 10:08] LABS: Absolute Lymphocyte Count 1.81 X10^3/uL (0.83-4.51); Absolute Neutrophil Count 5.9 X10^3/uL (2.0-7.7); Basophil# 0.06 X10^3/uL; Basophil% 0.7 % (0-1); Eosinophils% 2.2 % (0-5); Hematocrit 50.5 % (40-54); Hemoglobin 17.6 g/dL (13.0-16.5); Lymphocyte # 1.81 X10^3/ul (4.0); Lymphocyte % 19.9 % (19-41); Mean Corp Hgb Conc 34.9 g/dL (32-36); Mean Corpuscular Hgb 32.8 pg (27.0-32.0); Monocyte# 1.02 X10^3/uL; Monocyte% 11.2 % (0-10); NRBC Flagged by Analyzer 0 % (0-5); Neutrophil # 5.91 X10^3/uL (2.7-7.7); Neutrophil % 64.8 % (47-70); Platelet Count 195 K/mm3 (150-450); RBC Distribution Width CV 13.1 % (11.6-14.6); RBC Distribution Width SD 44.7 fl (35.1-43.9); Red Blood Count 5.37 M/mm3 (4.6-6.2); White Blood Count 9.1 K/mm3 (4.4-11.0)
[2019-09-08 05:06] LABS: Alternaria alternata <0.10 kU/L (Class 0); Bermuda Grass <0.10 kU/L (Class 0); Bluegrass, Kentucky <0.10 kU/L (Class 0); Cat Hair/Dander, Standard <0.10 kU/L (Class 0); D farinae Mite <0.10 kU/L (Class 0); D pteronyssinus <0.10 kU/L (Class 0); Dog Epithelia <0.10 kU/L (Class 0); Elm, American White <0.10 kU/L (Class 0); Oak, White <0.10 kU/L (Class 0); Plantain, English <0.10 kU/L (Class 0); Ragweed, Short/Common <0.10 kU/L (Class 0)
[2019-09-08 12:01] LABS: Mouse Urine <0.10 kU/L (Class 0)
[2019-09-09 03:07] LABS: Aspirgillus flavus Negative (Neg:<1:1); Aspirgillus fumigatus Negative (Neg:<1:1); Aspirgillus niger Negative (Neg:<1:1)
[2019-09-09 10:15] LABS: Immunoglobulin E 67 IU/mL (6-495)
== END ==
PROVIDERS: Nurse Practitioner Acute Care; PCP Family Medicine; Referring Provider Internal Medicine Critical Care Medicine; Visit Provider Internal Medicine Critical Care Medicine
DX: J45.909 Unspecified asthma, uncomplicated (principal)
CPT/HCPCS: 36415; 82785; 85025; 86003; 86606

== ENCOUNTER → 2019-09-13 08:25 | Outpatient (CLI) | payer MEDICARE, OTHER, SELFPAY ==
[2019-05-30 07:12] VITALS: BMI 41.8
[2019-09-05 07:49] VITALS: BMI 41.8
--- NOTE | 2019-09-13 15:08 | NEURO ---
NCS and/or EMG Patient Report Ordering Doctor: Emeterio Ojeda DATE OF SERVICE: 09/13/19 Mk Sorensen is a 64-year-old male presents for electrodiagnostic testing of the upper limbs. He reports numbness and tingling in both hands. Electrodiagnostic findings: Median motor nerve demonstrates prolonged distal latency with normal amplitude and reduced conduction velocity bilaterally. Normal right ulnar motor response. Left ulnar motor nerve demonstrates normal distal latency and amplitude with reduction and reduced conduction velocity across the elbow. Prolonged median sensory latency at the wrist is noted bilaterally on needle EMG, all muscles tested in the upper limb showed no evidence of denervation with normal motor unit action potentials. Electrodiagnostic impression: This is an abnormal study in the upper limbs 1. Electrodiagnostic findings demonstrate bilateral median mononeuropathy. This is consistent with a moderate right carpal tunnel syndrome and a severe left carpal tunnel syndrome. 2. Electrodiagnostic findings demonstrate left-sided ulnar neuropathy. This is consistent with a moderate left cubital tunnel syndrome. 3. No electrodiagnostic evidence is noted for cervical radiculopathy. If there are any further questions please do not hesitate to contact me.
== END ==
PROVIDERS: Family Provider Family Medicine; PCP Family Medicine; Referring Provider Chiropractor; Visit Provider Chiropractor
DX: G56.03 Carpal tunnel syndrome, bilateral upper limbs (principal)
CPT/HCPCS: 95886; 95912

== ENCOUNTER → 2019-09-20 20:00 | Outpatient (CLI) | payer MEDICARE, OTHER, SELFPAY ==
[2019-09-05 07:49] VITALS: BMI 41.8
== END ==
PROVIDERS: PCP Family Medicine; Referring Provider Nurse Practitioner Acute Care; Visit Provider Nurse Practitioner Acute Care
DX: G47.33 Obstructive sleep apnea (adult) (pediatric) (principal)
CPT/HCPCS: 95811

== ENCOUNTER 2019-09-27 08:25 | Outpatient (RCR) | payer MEDICARE, OTHER, SELFPAY ==
[2019-09-05 07:49] VITALS: BMI 41.8
[2019-09-20 15:19] VITALS: BMI 42.5
[2019-09-27 09:47] LABS: AST(SGOT) 20 U/L (15-37); Alanine Aminotransfer ALT/SGPT 30 U/L (16-61); Albumin, Serum 3.8 g/dL (3.2-5.0); Alkaline Phosphatase 56 U/L (45-117); Bilirubin, Direct 0.18 mg/dL (0.00-0.30); Cholesterol 152 mg/dL (200); Globulin 3.6 g/dL (2.2-4.2); High Density Lipoprotein 38 mg/dL; Protein, Total 7.4 g/dL (6.4-8.2); Triglycerides 174 mg/dL; Very Low Density Lipoprotein 35 mg/dL (5-40)
== END 2019-09-27 18:00 | disposition home or self-care (01) ==
LOC: LAB 08:25
PROVIDERS: Family Provider Family Medicine; PCP Family Medicine; Referring Provider Internal Medicine Cardiovascular Disease; Visit Provider Internal Medicine Cardiovascular Disease
DX: E78.00 Pure hypercholesterolemia, unspecified (principal); Z79.01 Long term (current) use of anticoagulants
CPT/HCPCS: 36415; 80061; 80076; 85610

== ENCOUNTER 2019-12-12 09:22 | Outpatient (RCR) | payer MEDICARE, OTHER, SELFPAY ==
[2019-09-27 09:11] VITALS: BMI 41.8
--- NOTE | 2019-11-22 09:32 | EKG12_ITS ---
Test Reason : PRE OP Blood Pressure : / mmHG Vent. Rate : 069 BPM Atrial Rate : 069 BPM P-R Int : 200 ms QRS Dur : 110 ms QT Int : 422 ms P-R-T Axes : -09 064 053 degrees QTc Int : 452 ms Normal sinus rhythm Normal ECG Confirmed by LINDA HARPER ([id number]), commissioning editor ELADIO ROMO ([id number]) on 11/27/2019 2:48:04 PM Referred By: Blu Iyer Confirmed By:LINDA HARPER
[2019-11-22 10:36] LABS: Absolute Lymphocyte Count 1.64 X10^3/uL (0.83-4.51); Absolute Neutrophil Count 5.9 X10^3/uL (2.0-7.7); Basophil# 0.08 X10^3/uL; Basophil% 0.9 % (0-1); Eosinophil# 0.13 X10^3/uL; Eosinophils% 1.5 % (0-5); Hematocrit 51.6 % (40-54); Hemoglobin 17.8 g/dL (13.0-16.5); Lymphocyte # 1.64 X10^3/ul (4.0); Lymphocyte % 18.8 % (19-41); Mean Corp Hgb Conc 34.5 g/dL (32-36); Mean Corpuscular Hgb 33.1 pg (27.0-32.0); Mean Corpuscular Volume 95.9 fL (80-94); Mean Platelet Vol. 11.5 fl (6.2-12.0); Monocyte# 0.85 X10^3/uL; Monocyte% 9.7 % (0-10); NRBC Flagged by Analyzer 0 % (0-5); Neutrophil # 5.91 X10^3/uL (2.7-7.7); Neutrophil % 67.7 % (47-70); Platelet Count 192 K/mm3 (150-450); RBC Distribution Width CV 13.2 % (11.6-14.6); RBC Distribution Width SD 47.2 fl (35.1-43.9); Red Blood Count 5.38 M/mm3 (4.6-6.2); White Blood Count 8.7 K/mm3 (4.4-11.0)
[2019-11-22 11:01] LABS: Anion Gap 6 (5-15); BUN 16 mg/dL (7-18); BUN/Creat Ratio 15.8 RATIO (10-20); Chloride 107 mmol/L (98-107); Creatinine, Serum 1.01 mg/dL (0.70-1.30); EST Glomerular Filtration Rate 79 mL/min (>60); Est Glom Filt Rate - Afr Amer 95 mL/min (>60); Glucose 98 mg/dL (74-106); Potassium 4.5 mmol/L (3.5-5.1); Sodium Level 138 mmol/L (136-145)
[2019-11-22 11:15] LABS: International Normalized Ratio 3.3; Prothrombin Time (Protime)PT. 32.9 SECONDS (11.7-14.9)
[2019-11-28 09:13] LABS: International Normalized Ratio 1.7; Prothrombin Time (Protime)PT. 19.6 SECONDS (11.7-14.9)
[2019-11-30 09:34] LABS: International Normalized Ratio 1.2; Prothrombin Time (Protime)PT. 14.2 SECONDS (11.7-14.9)
[2019-12-04 10:13] LABS: International Normalized Ratio 1.1; Prothrombin Time (Protime)PT. 13.6 SECONDS (11.7-14.9)
[2019-12-06 10:49] LABS: International Normalized Ratio 1.5; Prothrombin Time (Protime)PT. 17.2 SECONDS (11.7-14.9)
[2019-12-08 10:59] LABS: International Normalized Ratio 1.9; Prothrombin Time (Protime)PT. 21.3 SECONDS (11.7-14.9)
[2019-12-12 10:53] LABS: International Normalized Ratio 2.2; Prothrombin Time (Protime)PT. 24.4 SECONDS (11.7-14.9)
== END 2019-12-12 18:00 | disposition home or self-care (01) ==
LOC: LAB 09:22
PROVIDERS: Registered Nurse; Family Provider Family Medicine; PCP Family Medicine; Referring Provider Internal Medicine Cardiovascular Disease; Visit Provider Internal Medicine Cardiovascular Disease
DX: Z01.818 Encounter for other preprocedural examination (principal); Z01.810 Encounter for preprocedural cardiovascular examination; Z79.01 Long term (current) use of anticoagulants
CPT/HCPCS: 36415; 80048; 85025; 85610; 93005

== ENCOUNTER 2019-12-25 08:07 | Outpatient (RCR) | payer MEDICARE, OTHER, SELFPAY ==
[2019-09-27 09:11] VITALS: BMI 41.8
[2019-12-25 08:56] LABS: International Normalized Ratio 3.2
== END 2019-12-25 18:00 | disposition home or self-care (01) ==
LOC: LAB 08:07
PROVIDERS: Family Provider Family Medicine; PCP Family Medicine; Referring Provider Internal Medicine Cardiovascular Disease; Visit Provider Internal Medicine Cardiovascular Disease
DX: Z79.01 Long term (current) use of anticoagulants (principal)
CPT/HCPCS: 36415; 85610

== ENCOUNTER 2020-03-15 09:10 | Outpatient (RCR) | payer MEDICARE, OTHER, SELFPAY ==
[2019-09-27 09:11] VITALS: BMI 41.8
[2020-03-15 10:08] LABS: International Normalized Ratio 3.4; Prothrombin Time (Protime)PT. 33.9 SECONDS (11.7-14.9)
== END 2020-03-18 18:00 | disposition home or self-care (01) ==
LOC: LAB 09:10
PROVIDERS: Family Provider Family Medicine; PCP Family Medicine; Referring Provider Internal Medicine Cardiovascular Disease; Visit Provider Internal Medicine Cardiovascular Disease
DX: Z79.01 Long term (current) use of anticoagulants (principal)
CPT/HCPCS: 36415; 85610

== ENCOUNTER 2020-04-01 07:06 | Outpatient (RCR) | payer MEDICARE, OTHER, SELFPAY ==
[2019-09-27 09:11] VITALS: BMI 41.8
[2020-04-01 08:17] LABS: AST(SGOT) 23 U/L (15-37); Alanine Aminotransfer ALT/SGPT 40 U/L (16-61); Albumin, Serum 3.6 g/dL (3.2-5.0); Alkaline Phosphatase 50 U/L (45-117); Bilirubin, Direct 0.21 mg/dL (0.00-0.30); Cholesterol 142 mg/dL (200); Globulin 3.4 g/dL (2.2-4.2); High Density Lipoprotein 37 mg/dL; Triglycerides 199 mg/dL; Very Low Density Lipoprotein 40 mg/dL (5-40)
[2020-04-01 08:54] LABS: International Normalized Ratio 2.6; Prothrombin Time (Protime)PT. 27.4 SECONDS (11.7-14.9)
== END 2020-04-01 18:00 | disposition home or self-care (01) ==
LOC: LAB 07:06
PROVIDERS: Family Provider Family Medicine; PCP Family Medicine; Referring Provider Internal Medicine Cardiovascular Disease; Visit Provider Internal Medicine Cardiovascular Disease
DX: E78.00 Pure hypercholesterolemia, unspecified (principal); Z79.01 Long term (current) use of anticoagulants
CPT/HCPCS: 36415; 80061; 80076; 85610

== ENCOUNTER → 2020-06-12 | Outpatient (CLI) | payer MEDICARE, OTHER, SELFPAY ==
[2020-04-01 08:08] VITALS: BMI 42.0
== END | disposition home or self-care (01) ==
LOC: LABSPEC 13:37
PROVIDERS: PCP Family Medicine; Referring Provider Family Medicine; Visit Provider Family Medicine
DX: U07.1 COVID-19 (principal)
CPT/HCPCS: 87635; U0003

== ENCOUNTER 2020-06-14 08:21 | Outpatient (RCR) | payer MEDICARE, OTHER, SELFPAY ==
[2020-04-01 08:08] VITALS: BMI 42.0
[2020-06-14 09:23] LABS: International Normalized Ratio 2.8; Prothrombin Time (Protime)PT. 28.8 SECONDS (11.7-14.9)
== END 2020-06-14 18:00 | disposition home or self-care (01) ==
LOC: LAB 08:21
PROVIDERS: Family Provider Family Medicine; PCP Family Medicine; Referring Provider Internal Medicine Cardiovascular Disease; Visit Provider Internal Medicine Cardiovascular Disease
DX: I48.91 Unspecified atrial fibrillation (principal)
CPT/HCPCS: 36415; 85610

== ENCOUNTER → 2020-07-01 09:35 | Outpatient (CLI) | payer MEDICARE, OTHER, SELFPAY ==
[2020-04-01 08:08] VITALS: BMI 42.0
[2020-07-01 09:43] LABS: Mucous, Urine 0 SEEN /hpf (<or=2+)
[2020-07-01 12:08] LABS: Color, Urine Brown (Yellow); Glucose, Dipstick Normal (Normal); Ketone-Dipstick 15 mg/dl (Negative); Leukocyte Esterase-Dipstick 25 /ul (Negative); Nitrite-Dipstick Negative (Negative); Occult Blood-Urine 250 /ul (Negative); Protein-Dipstick 500 mg/dl (Negative); Specific Gravity, Urine 1.015 (1.002-1.030); Urine Bilirubin Dipstick 1 mg/dL (Negative); Urine Clarity Turbid (Clear); Urine Urobilinogen Normal (Normal); Urine pH 6.5 (5.0 - 8.0)
[2020-07-01 12:15] LABS: Bacteria 2+ /hpf (None Seen); Red Blood Cells-Urine 50-100 SEEN /hpf (0-5); Squamous Epithelial Cells - UA 0-5 SEEN /hpf (0-5); White Blood Cells 0-5 SEEN /hpf (0-5)
== END ==
PROVIDERS: PCP Family Medicine; Visit Provider Family Medicine
DX: R31.9 Hematuria, unspecified (principal)
CPT/HCPCS: 81001; 82043; 87086

== ENCOUNTER 2020-07-01 16:49 | Emergency (ER) | payer MEDICARE, OTHER, SELFPAY ==
[2020-04-01 08:08] VITALS: BMI 42.0
[2020-07-01 16:50] VITALS: BP 147/73; PULSE 83; RESP 16; TEMP 36.8; O2SAT 95; BMI 41.3
[2020-07-01 17:02] VITALS: BP 147/73; PULSE 83; RESP 16; TEMP 36.8; O2SAT 95
--- NOTE | 2020-07-01 17:14 | ED.DCSUM_ITS ---
History of Present Illness Chief Complaint: GI Bleed Informant: Patient Narrative: Patient presented to the emergency department for the evaluation of hematuria. Patient states symptoms began Wednesday afternoon. 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 He states he is never had this problem before. He is on Coumadin for mechanical heart valve. He denies any dysuria. He has been able to urinate and feels like he can empty his bladder. He denies any pain. He states he gave a urine specimen at his primary care physician's office this morning that was sent to the hospital. He talked with his hrbp and they recommend that they come to the emergency department. The outpatient urine specimen demonstrated 50-100 red blood cells. 0 white cells 0 epithelial cells. 2+ bacteria. Negative nitrates positive leukocyte esterase. She denies any known prostate issues. He denies any history of kidney stones. - Past Medical History (1) JO ANN (obstructive sleep apnea) Status: Chronic (2) History of mechanical aortic valve replacement Status: Chronic Comment: [place] [facility] mechanical valve 06/2004; (3) Essential hypertension Status: Chronic (4) GERD (gastroesophageal reflux disease) Status: Chronic (5) Atherosclerosis of [place] coronary artery of [place] heart without angina pectoris Status: Chronic Comment: Mild (6) Obesity Status: Chronic (7) COPD (chronic obstructive pulmonary disease) Status: Chronic (8) HLD (hyperlipidemia) Status: Chronic Past Medical History - Allergies and Home Meds Allergies/Adverse Reactions: Allergies Penicillins Allergy (Verified 07/01/20 17:04) Unknown Primary Care Physician: Los Joseph MD [STAFF PHYSICIAN] - As soon as possible Prior records reviewed: Yes Surgical History: - - Mechanical heart valve replacement Lives: Spouse/ Significant Other Smoking Status: Never smoker Drugs: None Review of Systems General: Denies: Chills, Fever, Sweats Eyes: Denies: Visual changes - bilaterally, Diplopia ENT: Denies: Rhinorrhea, Sore throat Cardiovascular: Denies: Chest pain, Palpitations Respiratory: Denies: Dyspnea, Cough, Dyspnea on exertion Gastrointestinal: Denies: Abdominal pain, Nausea, Vomiting, Diarrhea, Melena, Hematochezia Genitourinary: Reports: Hematuria. Denies: Dysuria, Frequency Musculoskeletal: Denies: Back pain, Extremity Pain Skin: Denies: Rash, Wounds Neurological: Denies: Headache, Weakness, Numbness Physical Exam Vital Signs/Narrative: Vital Signs Temp Pulse Resp BP Pulse Ox 07/01/20 17:02 98.2 F 83 16 147/73 H 95 07/01/20 16:50 98.2 F 83 16 147/73 H 95 Inital Vital Signs reviewed: Yes General: Well nourished, Well developed, Obese, No Acute Distress Head: Normocephalic, Atraumatic Eyes: Perrl, EOMI ENT: Moist mucous membranes, No rhinorrhea Neck: Supple, Nontender Cardiovascular: Regular rate, Regular rhythm, No murmurs Respiratory: No distress, CTA bilaterally, Chest nontender Abdomen: Soft, Nontender, Nondistended, Normal bowel sounds Back: Nontender, Normal Inspection Extremities: Nontender, No edema Skin: Normal color, No rash Neurological: Alert, Oriented x3, Cranial nerves II-XII grossly intact, Normal Strength, Normal Sensation Psychological: Normal affect, Normal Mood Diagnostic/Tx/Re-eval Laboratory Last Values WBC 9.4 K/mm3 (4.4-11.0) 07/01/20 17:00 RBC 4.95 M/mm3 (4.6-6.2) 07/01/20 17:00 Hgb 16.1 g/dL (13.0-16.5) 07/01/20 17:00 Hct 47.4 % (40-54) 07/01/20 17:00 MCV 95.8 fL (80-94) H 07/01/20 17:00 MCH 32.5 pg (27.0-32.0) H 07/01/20 17:00 MCHC 34.0 g/dL (32-36) 07/01/20 17:00 RDW Std Deviation 45.8 fl (35.1-43.9) H 07/01/20 17:00 RDW Coeff of Becki 13.0 % (11.6-14.6) 07/01/20 17:00 Plt Count 305 K/mm3 (150-450) 07/01/20 17:00 MPV 9.7 fl (6.2-12.0) 07/01/20 17:00 Immature Gran % (Auto) 1.800 % (0.0-0.9) H 07/01/20 17:00 Neut % (Auto) 68.4 % (47-70) 07/01/20 17:00 Lymph % (Auto) 19.4 % (19-41) 07/01/20 17:00 [place] % (Auto) 9.4 % (0-10) 07/01/20 17:00 Eos % (Auto) 0.4 % (0-5) 07/01/20 17:00 Baso % (Auto) 0.6 % (0-1) 07/01/20 17:00 Absolute Neuts (auto) 6.4 X10^3/uL (2.0-7.7) 07/01/20 17:00 Absolute Lymphs (auto) 1.81 X10^3/uL (0.83-4.51) 07/01/20 17:00 Nucleated RBC % 0 % (0-5) 07/01/20 17:00 PT 26.7 SECONDS (11.7-14.9) H 07/01/20 17:00 INR 2.5 07/01/20 17:00 APTT 33.3 Seconds (24.1-36.2) 07/01/20 17:00 Sodium 141 mmol/L (136-145) 07/01/20 17:00 Potassium 4.1 mmol/L (3.5-5.1) 07/01/20 17:00 Chloride 109 mmol/L (98-107) H 07/01/20 17:00 Carbon Dioxide 24.0 mmol/L (21.0-32.0) 07/01/20 17:00 Anion Gap 8 (5-15) 07/01/20 17:00 BUN 18 mg/dL (7-18) 07/01/20 17:00 Creatinine 1.09 mg/dL (0.70-1.30) 07/01/20 17:00 Estim Creat Clear Calc 66.66 ml/min 07/01/20 17:00 Est GFR (MDRD) Af Amer 87 mL/min (>60) 07/01/20 17:00 Est GFR (MDRD) Non-Af 72 mL/min (>60) 07/01/20 17:00 BUN/Creatinine Ratio 16.5 RATIO (10-20) 07/01/20 17:00 Glucose 121 mg/dL (74-106) H 07/01/20 17:00 Calcium 8.6 mg/dL (8.5-10.1) 07/01/20 17:00 - Medical Decision Making Hemoglobin is stable. White blood cell count is normal. INR is therapeutic 2.5. Urinalysis shows 2+ bacteria with hematuria. Patient is going to be placed on Bactrim. We will await urine culture. I will refer him to urology. He is encouraged to drink plenty of fluids. Should he develop urinary retention he will need to return for catheter. ED Disposition - Plan for ED Patient: Disposition: Home or Assisted Living Diagnosis: Hemorrhagic cystitis, Anticoagulated on Coumadin Instructions: ED Hematuria Prescriptions: Smz/Tmp Ds [Bactrim Ds] 1 tab PO BID #20 tab Prescription Printed Referrals: Los Joseph MD [STAFF PHYSICIAN] - As soon as possible Additional Instructions: Because you are on Coumadin and receiving a prescription for antibiotics it would be henry to have your Coumadin level checked or Wednesday. Should you be unable to urinate you need to return for catheter placement if indicated. I recommend following up with urology.
[2020-07-01 17:28] LABS: Absolute Lymphocyte Count 1.81 X10^3/uL (0.83-4.51); Absolute Neutrophil Count 6.4 X10^3/uL (2.0-7.7); Basophil# 0.06 X10^3/uL; Basophil% 0.6 % (0-1); Eosinophil# 0.04 X10^3/uL; Eosinophils% 0.4 % (0-5); Hematocrit 47.4 % (40-54); Hemoglobin 16.1 g/dL (13.0-16.5); Lymphocyte # 1.81 X10^3/ul (4.0); Lymphocyte % 19.4 % (19-41); Mean Corpuscular Hgb 32.5 pg (27.0-32.0); Mean Corpuscular Volume 95.8 fL (80-94); Mean Platelet Vol. 9.7 fl (6.2-12.0); Monocyte# 0.88 X10^3/uL; Monocyte% 9.4 % (0-10); NRBC Flagged by Analyzer 0 % (0-5); Neutrophil # 6.39 X10^3/uL (2.7-7.7); Neutrophil % 68.4 % (47-70); Platelet Count 305 K/mm3 (150-450); RBC Distribution Width SD 45.8 fl (35.1-43.9); Red Blood Count 4.95 M/mm3 (4.6-6.2); White Blood Count 9.4 K/mm3 (4.4-11.0)
[2020-07-01 17:31] LABS: International Normalized Ratio 2.5; Partial Thromboplast Time 33.3 Seconds (24.1-36.2); Prothrombin Time (Protime)PT. 26.7 SECONDS (11.7-14.9)
[2020-07-01 17:52] LABS: Anion Gap 8 (5-15); BUN 18 mg/dL (7-18); BUN/Creat Ratio 16.5 RATIO (10-20); Calcium,Total 8.6 mg/dL (8.5-10.1); Chloride 109 mmol/L (98-107); Creatinine, Serum 1.09 mg/dL (0.70-1.30); EST Glomerular Filtration Rate 72 mL/min (>60); Est Glom Filt Rate - Afr Amer 87 mL/min (>60); Estimated Creatinine Clearance 66.66 ml/min; Glucose 121 mg/dL (74-106); Potassium 4.1 mmol/L (3.5-5.1); Sodium Level 141 mmol/L (136-145)
== END 2020-07-01 18:40 | disposition home or self-care (01) ==
PROVIDERS: Emergency Provider Emergency Medicine; PCP Family Medicine
DX: N30.91 Cystitis, unspecified with hematuria (principal); I25.10 Atherosclerotic heart disease of native coronary artery without angina pectoris; I10 Essential (primary) hypertension; E78.5 Hyperlipidemia, unspecified; J44.9 Chronic obstructive pulmonary disease, unspecified; K21.9 Gastro-esophageal reflux disease without esophagitis; E66.9 Obesity, unspecified; Z68.41 Body mass index [BMI] 40.0-44.9, adult; Z88.0 Allergy status to penicillin; Z95.2 Presence of prosthetic heart valve; Z79.01 Long term (current) use of anticoagulants; Z79.82 Long term (current) use of aspirin; Z79.899 Other long term (current) drug therapy
CPT/HCPCS: 80048; 81001; 82043; 85025; 85610; 85730; 87086; 99283; A4216

== ENCOUNTER 2020-07-08 11:33 | Emergency (ER) | payer MEDICARE, OTHER, SELFPAY ==
[2020-07-08 11:33] VITALS: BP 148/78; PULSE 94; RESP 17; TEMP 36.7; O2SAT 93; BMI 40.8
--- NOTE | 2020-07-08 11:51 | CT_ITS ---
STUDY: CT ABDOMEN AND PELVIS WITHOUT CONTRAST REASON FOR EXAM: Male, 65 years old. LEFT FLANK PAIN RADIATION DOSAGE (If Supplied By Facility): CTDIvol = ( 22.77 ) mGy, DLP = ( 1450.65 ) mGycm TECHNIQUE: Transaxial images were obtained from the dome of the diaphragm to the symphysis pubis without oral contrast, and without intravenous contrast. Sagittal and coronal images were reconstructed. Individualized dose optimization techniques were used for this CT. COMPARISON: None. FINDINGS: Elevation/eventration of the left hemidiaphragm. Increased markings at the left lung base suggestive of atelectasis and/or scarring. Mild increased linear markings at the right lung base as well. Coronary artery calcification. Normal liver. There is a tiny solitary gallstone. Normal spleen. Normal pancreas. Normal bilateral adrenal glands. Normal right kidney. Mild degree of left perinephric stranding. Mild degree of left hydronephrosis and hydroureter with periureteric stranding down to the level of the urinary bladder. No obstructive calculus is seen at this time. This most likely represents a recently passed calculus. Normal visualized stomach. Normal small intestine. Normal colon. The appendix is visualized and appears normal. There is diffuse atherosclerotic calcification of the abdominal aorta and its major visceral branches, without a demonstrated aneurysm. Normal inferior vena cava. Normal retroperitoneum. The bladder is empty. There is enlargement of the prostate gland. This causes indentation of the bladder base. The prostate measures 5.1 cm x 5 cm. Central prostatic calcifications are seen. There is also evidence of calcification of the left seminal vesicle. Normal abdominal wall. There are mild degenerative changes of the visualized lumbar spine. CT/Abdomen/Pelvis without Cont IMPRESSION: Left hydronephrosis and hydroureter with perinephric and periureteric stranding. No obstructive calculus is seen. This most likely secondary to recent passage of a ureteral calculus. Electronically Signed: Harris Paulino, at 13:16 EST , Service support ,
--- NOTE | 2020-07-08 11:52 | ED.VIS.GI ---
History of Present Illness Chief Complaint: Flank Pain Informant: Patient - Abdominal Pain/Flank Pain Onset: Yesterday Context: Gradual Onset Timing: Continuous Quality: Aching Location: Left Flank - Radiating into left lower back and into left testicle Current Severity: Moderate Maximum Severity: Moderate Worsened by: Nothing Relieved by: Nothing - Nausea/Vomiting/Emesis GI Symptom: Nausea. Negative for: Vomiting - Diarrhea/Melena/Hematochezia GI Symptom: Negative for: Diarrhea, Melena, Hematochezia Associated Symptoms: Dysuria - A little early on but now resolved, Hematuria - All last week but since yesterday/day before, resolved and now urinating without blood or clots, Urgency - Now feels like he needs to urinate but cannot Narrative: Patient states 1 week ago he started having gross hematuria, along with a little dysuria. He is on warfarin because of a mechanical heart valve. He was prescribed an antibiotic that he is still taking, sulfa. He has not yet followed up with or made an appointment with a urologist. He had a kidney stone long ago, he did not require surgery/removal and passed it on his own. He had hematuria a little off and on all week along with clots, however he states the day before yesterday he started urinating normally, and still lives although today he states he feels like he still needs to urinate and cannot. He denies any fevers or chills but is having some nausea. He denies any bulges or masses in his groin/scrotum. - Past Medical History (1) Aortic aneurysm, thoracic Status: Chronic (2) Aortic valve, bicuspid Status: Chronic (3) Atherosclerosis of [place] coronary artery of [place] heart without angina pectoris Status: Chronic Comment: Mild (4) COPD (chronic obstructive pulmonary disease) Status: Chronic (5) Essential hypertension Status: Chronic (6) GERD (gastroesophageal reflux disease) Status: Chronic (7) HLD (hyperlipidemia) Status: Chronic (8) JO ANN (obstructive sleep apnea) Status: Chronic (9) Obesity Status: Chronic (10) Restrictive airway disease Status: Chronic Past Medical History - Allergies and Home Meds Allergies/Adverse Reactions: Allergies Penicillins Allergy (Verified 07/08/20 11:33) Unknown Primary Care Physician: Misael Solares MD [Primary Care Provider] - Surgical History: - - Mechanical heart valve replacement Smoking Status: Never smoker Review of Systems General: Denies: Chills, Fever, Sweats Eyes: Denies: Visual changes - bilaterally, Diplopia ENT: Denies: Bilateral ear pain, Rhinorrhea, Sore throat Cardiovascular: Denies: Chest pain, Palpitations Respiratory: Denies: Dyspnea, Cough, Dyspnea on exertion Gastrointestinal: Reports: Abdominal pain, Nausea. Denies: Vomiting, Diarrhea, Melena, Hematochezia Genitourinary: Reports: Dysuria, Hematuria. Denies: Frequency Musculoskeletal: Denies: Neck pain, Back pain, Swelling, Extremity Pain Skin: Denies: Rash, Wounds Neurological: Denies: Headache, Weakness, Numbness Physical Exam Vital Signs/Narrative: Vital Signs Temp Pulse Resp BP Pulse Ox 07/08/20 11:33 98.1 F 94 17 148/78 H 93 Inital Vital Signs reviewed: Yes General: Well nourished, Well developed, No Acute Distress Head: Normocephalic, Atraumatic Eyes: Perrl, EOMI ENT: Moist mucous membranes, No rhinorrhea Neck: Supple, Nontender Cardiovascular: Regular rate, Regular rhythm, No murmurs Respiratory: No distress, CTA bilaterally, Chest nontender Abdomen: Soft, Nondistended, Normal bowel sounds, Tender - Left upper quadrant and left mid flank only. Negative for: Guarding, Rebound tenderness : - - No hernias. Examined while standing. Mild posterior left testicle tenderness without mass. Normal testicular lie bilaterally. Back: Nontender, Normal Inspection. Negative for: CVA tenderness Extremities: Nontender, No edema. Negative for: Calf Tenderness Skin: Normal color, No rash, No Trauma Neurological: Alert, Oriented x3, Cranial nerves II-XII grossly intact, Normal Strength, Normal Sensation, Normal Gait Psychological: Normal affect, Normal Mood Diagnostic/Tx/Re-eval Impressions Abdomen/Pelvis CT 07/08/20 11:51 IMPRESSION: Left hydronephrosis and hydroureter with perinephric and periureteric stranding. No obstructive calculus is seen. This most likely secondary to recent passage of a ureteral calculus. Electronically Signed: Harris Paulino, at 13:16 EST , Service support , 07/08/20 11:51 Abdomen/Pelvis without Cont [CT] Stat Laboratory Results 07/08/20 07/08/20 07/08/20 12:15 12:15 12:15 WBC 13.5 H RBC 4.79 Hgb 16.7 H Hct 45.7 MCV 95.4 H MCH 34.9 H MCHC 36.5 H RDW Std Deviation 46.6 H RDW Coeff of Becki 14.0 Plt Count 210 MPV 10.8 Immature Gran % (Auto) 1.000 H Neut % (Auto) 77.8 H Lymph % (Auto) 9.4 L [place] % (Auto) 11.4 H Eos % (Auto) 0.1 Baso % (Auto) 0.3 Absolute Neuts (auto) 10.5 H Absolute Lymphs (auto) 1.26 Nucleated RBC % 0 Differential Comment SCANNED Diff Path Review November Sodium 134 L Potassium 4.0 Chloride 103 Carbon Dioxide 23.0 Anion Gap 8 BUN 18 Creatinine 1.69 H Estim Creat Clear Calc 43.00 Est GFR (MDRD) Af Amer 52 L Est GFR (MDRD) Non-Af 43 L BUN/Creatinine Ratio 10.7 Glucose 105 Calcium 8.8 Urine Color Yellow Urine Clarity Clear Urine pH 5.0 Ur Specific [place] 1.020 Urine Protein Negative Urine Glucose (UA) Normal Urine Ketones Negative Urine Occult Blood 25 H Urine Nitrite Negative Urine Bilirubin Negative Urine Urobilinogen Normal Ur Leukocyte Esterase Negative Urine RBC 0 SEEN Urine WBC 0 SEEN Ur Squamous Epith Cells 0 SEEN Urine Bacteria 0 SEEN Urine Mucus 0 SEEN - Medical Decision Making Work-up shows what appears to be a left obstructive uropathy without an obvious cause for it or stone, but with periureteral/perinephric stranding, consistent with the appearance of an obstructive uropathy caused by a stone that was recently passed. However, the patient's pain continued to recur as morphine wore off. This raises concern for the possibility of a stricture, or a mass, or something else causing the obstructive uropathy that is not evident on CT. He does have mild RADHA with a creatinine of 1.69, his baseline was 1.1. With doses of morphine his pain is well controlled and he is well-appearing, clinically and hemodynamically stable. His urinalysis shows no acute infection. I discussed with Dr. Johnson, she is the urologist acquisitions librarian. She does not treat men in her practice, and we do not have any other urologist available for the next 2 weeks. Her recommendation given that the patient is stable and his pain is able to be controlled, is to have him follow-up with a urologist as an outpatient within the next week if possible. After discussing with the patient, he did see a urologist a long time ago in [place], he states he has retired but the practice is still in existence. He does not remember the name of the practice or the physician but states he has the information at home. I recommend that he try to follow-up, and if not to follow-up with his PCP to have a reevaluation of him clinically and his renal function, and if he has new or intractable symptoms, to feel free to return to the ER and he is comfortable with this overall plan. He is currently finishing the antibiotic he was previously prescribed and I do not feel there is any reason to prescribe a new one at this time or to extend that, especially since his culture from 1 week ago is negative. ED Disposition - Plan for ED Patient: Disposition: Home or Assisted Living Diagnosis: Acute unilateral obstructive uropathy, RADHA (acute kidney injury), MCC (current) use of anticoagulants Instructions: ED Kidney Stone w/ Colic Prescriptions: Oxycodone HCl/Acetaminophen [Percocet 5/325] 1 tablet PO Q4H PRN PRN 3 Days #18 tablet PRN Reason: Pain Transmission Status: Sent to [id number] Ondansetron [Zofran Odt] 8 mg PO Q8H PRN PRN #20 tab PRN Reason: Nausea Transmission Status: Pending to [id number] Referrals: Misael Solares MD [Primary Care Provider] - 1 Week (or your urologist) Additional Instructions: Your CT shows left hydronephrosis and hydroureter without a stone/obvious cause, along with mild acute kidney injury. If your symptoms worsen or your pain is out of control, return to the ER.
[2020-07-08] MEDS: Morphine 4 MG/ML Syringe IV ×2 (12:15→16:10)
[2020-07-08] MEDS: Ondansetron 4 MG/2 ML Vial IV (12:15)
[2020-07-08 12:33] LABS: Bacteria 0 SEEN /hpf (None Seen); Mucous, Urine 0 SEEN /hpf (<or=2+); Red Blood Cells-Urine 0 SEEN /hpf (0-5); Squamous Epithelial Cells - UA 0 SEEN /hpf (0-5); White Blood Cells 0 SEEN /hpf (0-5)
[2020-07-08 12:36] LABS: Absolute Lymphocyte Count 1.26 X10^3/uL (0.83-4.51); Absolute Neutrophil Count 10.5 X10^3/uL (2.0-7.7); Basophil# 0.04 X10^3/uL; Basophil% 0.3 % (0-1); Color, Urine Yellow (Yellow); Eosinophil# 0.01 X10^3/uL; Eosinophils% 0.1 % (0-5); Glucose, Dipstick Normal (Normal); Hematocrit 45.7 % (40-54); Hemoglobin 16.7 g/dL (13.0-16.5); Ketone-Dipstick Negative (Negative); Leukocyte Esterase-Dipstick Negative /ul (Negative); Lymphocyte # 1.26 X10^3/ul (4.0); Lymphocyte % 9.4 % (19-41); Mean Corp Hgb Conc 36.5 g/dL (32-36); Mean Corpuscular Hgb 34.9 pg (27.0-32.0); Mean Corpuscular Volume 95.4 fL (80-94); Mean Platelet Vol. 10.8 fl (6.2-12.0); Monocyte# 1.53 X10^3/uL; Monocyte% 11.4 % (0-10); NRBC Flagged by Analyzer 0 % (0-5); Neutrophil # 10.49 X10^3/uL (2.7-7.7); Neutrophil % 77.8 % (47-70); Nitrite-Dipstick Negative (Negative); Occult Blood-Urine 25 /ul (Negative); POSITIVE DIFFERENTIAL YES; Platelet Count 210 K/mm3 (150-450); Protein-Dipstick Negative (Negative); RBC Distribution Width SD 46.6 fl (35.1-43.9); Red Blood Count 4.79 M/mm3 (4.6-6.2); Urine Bilirubin Dipstick Negative (Negative); Urine Clarity Clear (Clear); Urine Urobilinogen Normal (Normal); White Blood Count 13.5 K/mm3 (4.4-11.0)
[2020-07-08 12:42] LABS: Differential Indicated SCAN CRITERIA MET
[2020-07-08 12:50] LABS: Anion Gap 8 (5-15); BUN 18 mg/dL (7-18); BUN/Creat Ratio 10.7 RATIO (10-20); Calcium,Total 8.8 mg/dL (8.5-10.1); Chloride 103 mmol/L (98-107); Creatinine, Serum 1.69 mg/dL (0.70-1.30); EST Glomerular Filtration Rate 43 mL/min (>60); Est Glom Filt Rate - Afr Amer 52 mL/min (>60); Glucose 105 mg/dL (74-106); Sodium Level 134 mmol/L (136-145)
[2020-07-08 12:56] LABS: Differential Comment SCANNED
[2020-07-08 14:16] VITALS: BP 137/83; PULSE 76; RESP 19; O2SAT 98
[2020-07-08 17:38] VITALS: BP 140/80; PULSE 80; RESP 16; O2SAT 98
[2020-07-09 13:26] LABS: Pathologist Review Reviewed
== END 2020-07-08 17:40 | disposition home or self-care (01) ==
PROVIDERS: Emergency Provider Emergency Medicine; PCP Family Medicine
DX: N13.30 Unspecified hydronephrosis (principal); N17.9 Acute kidney failure, unspecified; I25.10 Atherosclerotic heart disease of native coronary artery without angina pectoris; I10 Essential (primary) hypertension; J44.9 Chronic obstructive pulmonary disease, unspecified; E78.5 Hyperlipidemia, unspecified; E66.9 Obesity, unspecified; Z68.41 Body mass index [BMI] 40.0-44.9, adult; Z87.442 Personal history of urinary calculi; Z95.2 Presence of prosthetic heart valve; Z88.0 Allergy status to penicillin; Z79.01 Long term (current) use of anticoagulants; Z79.82 Long term (current) use of aspirin; Z79.899 Other long term (current) drug therapy
CPT/HCPCS: 74176; 80048; 81001; 85025; 96374; 96375; 96376; 99284; A4216; J2405

== ENCOUNTER 2020-07-15 11:04 | Outpatient (RCR) | payer MEDICARE, OTHER, SELFPAY ==
[2020-04-01 08:08] VITALS: BMI 42.0
[2020-07-05 10:39] LABS: International Normalized Ratio 2.9
[2020-07-15 11:59] LABS: International Normalized Ratio 3.1; Prothrombin Time (Protime)PT. 31.7 SECONDS (11.7-14.9)
== END 2020-07-15 18:00 | disposition home or self-care (01) ==
LOC: LAB 11:04
PROVIDERS: Family Provider Family Medicine; PCP Family Medicine; Referring Provider Internal Medicine Cardiovascular Disease; Visit Provider Internal Medicine Cardiovascular Disease
DX: Z79.01 Long term (current) use of anticoagulants (principal); Z95.2 Presence of prosthetic heart valve
CPT/HCPCS: 36415; 85610

== ENCOUNTER → 2020-07-29 07:21 | Outpatient (CLI) | payer MEDICARE, OTHER, SELFPAY ==
[2020-04-01 08:08] VITALS: BMI 42.0
[2020-07-24 09:06] VITALS: BMI 42.0
--- NOTE | 2020-07-29 07:24 | CT_ITS ---
STUDY: CT ABDOMEN AND PELVIS WITH AND WITHOUT CONTRAST REASON FOR EXAM: Male, 65 years old. BLOOD IN STOOL, H/O [place] 1 WK AGO. RADIATION DOSAGE (If Supplied By Facility): CTDIvol = ( 28.565 ) mGy, DLP = ( 4126.36 ) mGycm TECHNIQUE: Transaxial images were obtained from the dome of the diaphragm to the symphysis pubis without oral contrast. IV 100 ML ISOVUE 300 was administered. Sagittal and coronal images were reconstructed. Individualized dose optimization techniques were used for this CT. COMPARISON: Comparison is made with prior study dated 07/08/2020. FINDINGS: Stable mild increased markings at the lung bases suggestive of scarring. Stable 6.4 mm partially nodule in the posterior medial aspect of the right lower lobe as seen on axial image #14. Coronary artery calcification. Normal liver. Small gallstones are seen within the gallbladder lumen. Normal spleen. Normal pancreas. There is a small, circumscribed, smooth, low attenuation left adrenal mass, consistent with an adrenal adenoma. This measures 1.3 cm. Normal right adrenal gland. Normal right kidney. Normal left kidney. There is a small hiatal hernia. Normal small intestine. Moderate amount of fecal material is seen in the rectosigmoid colon. The appendix is visualized and appears normal. Normal abdominal aorta. Normal inferior vena cava. Normal retroperitoneum. The urinary bladder is empty. There are prostatic calcifications. Stable enlargement of the prostate measuring 5 cm by 5 cm. This causes indentation of the bladder base. Normal abdominal wall. There are diffuse degenerative changes of the visualized lumbar spine. CT/CT Abd/Pelvis W/WO Contrast IMPRESSION: Small gallstones in the gallbladder lumen. Moderate amount of fecal material is seen in the rectosigmoid colon. Stable 6.4 mm partially calcified nodule in the posterior medial aspect of the right lower lobe. Electronically Signed: Harris Paulino, at 11:12 EST , Service support ,
== END ==
PROVIDERS: PCP Family Medicine; Referring Provider Nurse Practitioner Adult Health; Visit Provider Nurse Practitioner Adult Health
DX: R19.5 Other fecal abnormalities (principal); R31.0 Gross hematuria; N13.39 Other hydronephrosis; Z87.442 Personal history of urinary calculi; K80.20 Calculus of gallbladder without cholecystitis without obstruction
CPT/HCPCS: 74178; Q9967

== ENCOUNTER → 2020-08-07 06:33 | Outpatient (CLI) | payer MEDICARE, OTHER, SELFPAY ==
[2020-07-24 09:06] VITALS: BMI 42.0
--- NOTE | 2020-08-07 06:50 | MRI_ITS ---
STUDY: MRI ABDOMEN WITH AND WITHOUT CONTRAST REASON FOR EXAM: Male, 65 years old. f/u abnormal CT, L ADRENAL GLAND MASS TECHNIQUE: Standardized fat and water weighted pulse sequences were obtained in all 3 orthogonal planes post contrast administration. IV 25cc dotarem was administered for the contrast portion of the examination. COMPARISON: CT 07/29/2020 FINDINGS: The visualized lung bases are unremarkable. The visualized portions of the heart are within normal limits. Normal liver. Normal gallbladder and extrahepatic biliary system. Normal spleen. Normal pancreas. There is a 1 cm round mass of the medial limb of the left adrenal gland which demonstrates the loss of signal on the out of phase gradient echo images consistent with an adrenal adenoma. There is mild bulbous appearance of the medial limb of the right adrenal gland which may represent another smaller subcentimeter adenoma. Normal right kidney. Normal left kidney. Normal visualized stomach. Normal small intestine. Normal colon. There is non-visualization of the appendix. Normal abdominal aorta. Normal inferior vena cava. Normal retroperitoneum. Normal abdominal wall. Normal osseous structures. MRI/MRI Abd WITH and W/O Contrast IMPRESSION: MRI confirms a 1 cm adenoma the medial limb of the left adrenal gland and possibly a subcentimeter adenoma the medial limb of the right adrenal gland. Electronically Signed: Kurt aWtson MD at 9:13 EST Tel , Service support ,
== END ==
PROVIDERS: PCP Family Medicine; Referring Provider Nurse Practitioner Adult Health; Visit Provider Nurse Practitioner Adult Health
DX: D35.00 Benign neoplasm of unspecified adrenal gland (principal)
CPT/HCPCS: 74183; A9575; A4216

== ENCOUNTER 2020-08-08 11:58 | Outpatient (RCR) | payer MEDICARE, OTHER, SELFPAY ==
[2020-07-24 09:06] VITALS: BMI 42.0
[2020-08-08 13:41] LABS: Prothrombin Time (Protime)PT. 30.5 SECONDS (11.7-14.9)
== END 2020-08-08 18:00 | disposition home or self-care (01) ==
LOC: LAB 11:58
PROVIDERS: Family Provider Family Medicine; PCP Family Medicine; Referring Provider Internal Medicine Cardiovascular Disease; Visit Provider Internal Medicine Cardiovascular Disease
DX: Z79.01 Long term (current) use of anticoagulants (principal); Z95.2 Presence of prosthetic heart valve
CPT/HCPCS: 36415; 85610

== ENCOUNTER 2020-10-08 11:00 | Outpatient (RCR) | payer MEDICARE, OTHER, SELFPAY ==
[2020-07-24 09:06] VITALS: BMI 42.0
[2020-10-08 12:04] LABS: International Normalized Ratio 2.4; Prothrombin Time (Protime)PT. 25.8 SECONDS (11.7-14.9)
== END 2020-10-08 18:00 | disposition home or self-care (01) ==
LOC: LAB 11:00
PROVIDERS: Family Provider Family Medicine; PCP Family Medicine; Referring Provider Internal Medicine Cardiovascular Disease; Visit Provider Internal Medicine Cardiovascular Disease
DX: Z95.2 Presence of prosthetic heart valve (principal); Z79.01 Long term (current) use of anticoagulants
CPT/HCPCS: 36415; 85610

== ENCOUNTER 2020-11-14 09:23 | Outpatient (RCR) | payer MEDICARE, OTHER, SELFPAY ==
[2020-07-24 09:06] VITALS: BMI 42.0
[2020-11-14 10:36] LABS: International Normalized Ratio 2.6; Prothrombin Time (Protime)PT. 26.9 SECONDS (11.7-14.9)
== END 2020-11-14 18:00 | disposition home or self-care (01) ==
LOC: LAB 09:23
PROVIDERS: Family Provider Family Medicine; PCP Family Medicine; Referring Provider Internal Medicine Cardiovascular Disease; Visit Provider Internal Medicine Cardiovascular Disease
DX: Z95.2 Presence of prosthetic heart valve (principal); Z79.01 Long term (current) use of anticoagulants
CPT/HCPCS: 36415; 85610

== ENCOUNTER 2020-12-19 10:44 | Outpatient (RCR) | payer MEDICARE, OTHER, SELFPAY ==
[2020-07-24 09:06] VITALS: BMI 42.0
[2020-12-19 12:01] LABS: International Normalized Ratio 2.6; Prothrombin Time (Protime)PT. 27.3 SECONDS (11.7-14.9)
== END 2020-12-19 18:00 | disposition home or self-care (01) ==
LOC: LAB 10:44
PROVIDERS: Family Provider Family Medicine; PCP Family Medicine; Referring Provider Internal Medicine Cardiovascular Disease; Visit Provider Internal Medicine Cardiovascular Disease
DX: Z95.2 Presence of prosthetic heart valve (principal); Z79.01 Long term (current) use of anticoagulants
CPT/HCPCS: 36415; 85610

== ENCOUNTER 2021-02-10 08:54 | Outpatient (RCR) | payer MEDICARE, OTHER, SELFPAY ==
[2021-01-08 05:54] VITALS: BMI 42.0
[2021-02-10 09:20] LABS: Prothrombin Time (Protime)PT. 30.2 SECONDS (11.7-14.9)
[2021-02-10 11:26] LABS: AST(SGOT) 18 U/L (15-37); Alanine Aminotransfer ALT/SGPT 33 U/L (16-61); Albumin, Serum 3.6 g/dL (3.2-5.0); Alkaline Phosphatase 52 U/L (45-117); Bilirubin, Direct 0.14 mg/dL (0.00-0.30); Cholesterol 137 mg/dL (200); Globulin 3.7 g/dL (2.2-4.2); High Density Lipoprotein 35 mg/dL; Protein, Total 7.3 g/dL (6.4-8.2); Triglycerides 224 mg/dL; Very Low Density Lipoprotein 45 mg/dL (5-40)
== END 2021-02-10 18:00 | disposition home or self-care (01) ==
LOC: LAB 08:54
PROVIDERS: Family Provider Family Medicine; PCP Family Medicine; Referring Provider Internal Medicine Cardiovascular Disease; Visit Provider Internal Medicine Cardiovascular Disease
DX: Z95.2 Presence of prosthetic heart valve (principal); Z79.01 Long term (current) use of anticoagulants; E78.00 Pure hypercholesterolemia, unspecified; I25.10 Atherosclerotic heart disease of native coronary artery without angina pectoris; I71.2 Thoracic aortic aneurysm, without rupture; I10 Essential (primary) hypertension; R06.02 Shortness of breath
CPT/HCPCS: 36415; 80061; 80076; 85610

== ENCOUNTER 2021-03-03 09:33 | Emergency (ER) | payer MEDICARE, OTHER, SELFPAY ==
[2021-02-10 09:47] VITALS: BMI 42.4
[2021-03-03 09:34] VITALS: BP 132/71; PULSE 80; RESP 14; TEMP 36.4; O2SAT 96; BMI 41.5
--- NOTE | 2021-03-03 09:41 | CT_ITS ---
STUDY: CT FACIAL BONES WITHOUT CONTRAST REASON FOR EXAM: Male, 65 years old. Fall RADIATION DOSAGE (If Supplied By Facility): CTDIvol = ( 29.92 ) mGy, DLP = ( 640.75 ) mGycm TECHNIQUE: The patient was scanned in a multi detector CT scanner. Sagittal and coronal images were reconstructed. Individualized dose optimization techniques were used for this CT. COMPARISON: None. FINDINGS: Normal soft tissue structures. Normal orbital herrera and orbital contents. Nondisplaced nasal bone fracture . Normal facial bones. There is no demonstrated fracture. 51.4 cm polyp or retention cyst along the posterior inferior aspect of the right maxillary sinus. CT/Sinus/Facial Bone IMPRESSION: Nondisplaced fracture of the tip of the nasal bone. Electronically Signed: Harris Paulino MD at 10:54 EDT , Service support ,
--- NOTE | 2021-03-03 09:41 | RAD_ITS ---
STUDY: X-RAY - RIGHT TIBIA AND FIBULA REASON FOR EXAM: Male, 65 years old. Fall TECHNIQUE: 2 view(s) of the tibia and fibula were obtained. COMPARISON: None. FINDINGS: Normal visualized tibia. Normal visualized fibula. Soft tissue swelling. RAD/Tibia & Fibula 2 Views IMPRESSION: Soft tissue swelling. Electronically Signed: Harris Paulino MD at 11:03 EDT , Service support ,
--- NOTE | 2021-03-03 09:41 | RAD_ITS ---
STUDY: X-RAY - RIGHT SHOULDER REASON FOR EXAM: Male, 65 years old. Fall TECHNIQUE: 4 view(s) of the shoulder. COMPARISON: None. FINDINGS: There is mild degenerative arthrosis of the glenohumeral articulation. Normal acromioclavicular joint. Normal acromion. Normal humeral head and visualized proximal humerus. The soft tissue structures are unremarkable. Normal visualized pulmonary apex. RAD/Shoulder min 2 Views IMPRESSION: Mild degree of degenerative arthrosis of the glenohumeral joint. Electronically Signed: Harris Paulino MD at 11:04 EDT , Service support ,
--- NOTE | 2021-03-03 09:41 | RAD_ITS ---
STUDY: X-RAY - RIGHT HUMERUS REASON FOR EXAM: Male, 65 years old. Fall TECHNIQUE: 3 view(s) of the humerus. COMPARISON: None. FINDINGS: Normal visualized humerus. There is no demonstrated fracture or osseous destructive process. There is no demonstrated soft tissue abnormality. RAD/Humerus min 2 Views IMPRESSION: Normal x-ray examination of the humerus. Electronically Signed: Harris Paulino MD at 11:03 EDT , Service support ,
--- NOTE | 2021-03-03 09:41 | RAD_ITS ---
STUDY: X-RAY - RIGHT WRIST REASON FOR EXAM: Male, 65 years old. Fall TECHNIQUE: 4 view(s) of the wrist were obtained including scaphoid view. COMPARISON: None. FINDINGS: Normal visualized distal radius and ulna. There is degenerative arthrosis of the radiocarpal articulation. Normal distal radioulnar articulation. Transverse fracture through the waist of the scaphoid bone. Normal carpal articulations. Normal carpometacarpal articulation of the thumb. Normal second through fifth carpometacarpal articulations. Normal visualized metacarpal bones. Soft tissue swelling. There is a 6 mm x 1 mm linear density in the soft tissues overlying the proximal phalanx of the thumb. Vascular calcification. RAD/Wrist min 3 Views IMPRESSION: Nondisplaced fracture through the waist of the scaphoid bone. Soft tissue swelling. 6 mm x 1 mm linear density in the soft tissues overlying the proximal phalanx of the thumb. Electronically Signed: Harris Paulino MD at 11:02 EDT , Service support ,
--- NOTE | 2021-03-03 09:41 | RAD_ITS ---
STUDY: X-RAY - RIGHT ANKLE REASON FOR EXAM: Male, 65 years old. Fall TECHNIQUE: 3 view(s) of the ankle. COMPARISON: None. FINDINGS: Normal visualized distal tibia and fibula. Normal medial and lateral malleoli. Normal tibiotalar articulation and ankle mortise. Plantar spur. The visualized subtalar, talonavicular, calcaneocuboid and tarsal articulations are normal. Vascular calcification. Soft tissue swelling. RAD/Ankle min 3 Views IMPRESSION: Plantar spur. Soft tissue swelling. Electronically Signed: Harris Paulino MD at 11:00 EDT , Service support ,
--- NOTE | 2021-03-03 09:41 | CT_ITS ---
STUDY: CT BRAIN WITHOUT CONTRAST REASON FOR EXAM: Male, 65 years old. Fall RADIATION DOSAGE (If Supplied By Facility): CTDIvol = ( 44.99 ) mGy, DLP = ( 829.85 ) mGycm TECHNIQUE: Transaxial CT imaging of the brain was performed without administration of intravenous contrast material. Individualized dose optimization techniques were used for this CT. COMPARISON: No relevant priors. FINDINGS: Normal soft tissue structures. Normal calvarium. There is mild cerebral atrophy with widening of the extra-axial spaces and ventricular dilatation. Normal white matter tracts of the cerebral hemispheres. Normal basal ganglia and thalami. Normal brainstem. Normal cerebellum. There is no intracranial hemorrhage. There are no findings of an acute ischemic infarction. Atherosclerotic calcification of the cavernous portions of the internal carotid arteries bilaterally. There is a 1.4 cm polyp or retention cyst at the base of the right maxillary sinus. CT/Brain/Head without Contrast IMPRESSION: Chronic involutional changes of the brain. 1.4 cm polyp or retention cyst at the base of the right maxillary sinus. Electronically Signed: Harris Paulino MD at 10:50 EDT , Service support ,
--- NOTE | 2021-03-03 09:41 | CT_ITS ---
STUDY: CT CERVICAL SPINE WITHOUT CONTRAST REASON FOR EXAM: Male, 65 years old. Fall RADIATION DOSAGE (If Supplied By Facility): CTDIvol = ( 29.38 ) mGy, DLP = ( 532.76 ) mGycm TECHNIQUE: High resolution transaxial imaging was performed without contrast material. Sagittal and coronal images were reconstructed. Individualized dose optimization techniques were used for this CT. COMPARISON: None FINDINGS: Normal craniovertebral junction. There are degenerative changes of the anterior atlantoaxial articulation. Normal odontoid process. Normal cervical lordosis. Normal vertebral bodies and posterior osseous elements. C2-3: Normal endplates. Normal disc height and morphology. Normal central canal and intervertebral neuroforamina. C3-4: Normal endplates. Normal disc height and morphology. Normal central canal and intervertebral neuroforamina. C4-5: Normal endplates. Normal disc height and morphology. Normal central canal and intervertebral neuroforamina. C5-6: Normal endplates. Normal disc height and morphology. Normal central canal and intervertebral neuroforamina. C6-7: Moderate degree of disc space narrowing. Uncovertebral arthrosis. Mild degree of right neural foraminal stenosis. C7-T1: Normal endplates. Normal disc height and morphology. Normal central canal and intervertebral neuroforamina. Normal visualized soft tissue structures. CT/Spine Cervical without Contras IMPRESSION: Multilevel degenerative changes, as described above. Electronically Signed: Harris Paulino MD at 10:52 EDT , Service support ,
--- NOTE | 2021-03-03 09:45 | EX.ED.GENINJ ---
HPI History of Present Illness Chief Complaint: Fall Informant: patient Narrative Narrative: 65-year-old male presenting after fall. This occurred last night. Patient states he tripped over a wooden block. He did hit his head. He denies loss of consciousness. He is on Coumadin. He complains of right lower extremity and right upper extremity pain. He is able to ambulate. Tetanus is up-to-date. 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 Carotid bruit COPD (chronic obstructive pulmonary disease) Essential hypertension GERD (gastroesophageal reflux disease) Hypokalemia Lung nodule Mixed hyperlipidemia Obesity JO ANN (obstructive sleep apnea) Snoring Thoracic aortic aneurysm without rupture Home Medications aspirin 81 mg tablet,delayed release 81 mg PO QDAY 08/05/17 [History Last Taken Unknown] metoprolol succinate 100 mg tablet,extended release 24 hr 100 mg PO QDAY #90 tab 07/15/20 [Rx Last Taken Unknown] potassium chloride 20 mEq tablet,extended release(part/cryst) 20 meq PO QDAY #90 tab 07/15/20 [Rx Last Taken Unknown] ramipril 10 mg capsule 10 mg PO QDAY #90 cap 07/15/20 [Rx Last Taken Unknown] spironolactone 50 mg tablet 50 mg PO QDAY #90 tab 07/15/20 [Rx Last Taken Unknown] warfarin 1 mg tablet 2 mg PO .COMPLEX #180 tab 07/15/20 [Rx Last Taken 03/02/21] warfarin 5 mg tablet 5 mg PO QDAY #90 tab 07/15/20 [Rx Last Taken 03/02/21] albuterol sulfate 90 mcg/actuation aerosol inhaler 2 puff INHALATION Q4H PRN #6.7 g 07/24/20 [Rx Last Taken Unknown] cetirizine 10 mg capsule 10 mg PO HS #90 cap 01/08/21 [Rx Last Taken Unknown] montelukast 10 mg tablet 10 mg PO QPM #90 tab 01/08/21 [Rx Last Taken Unknown] budesonide 1 mg/2 mL suspension for nebulization 1 mg INHALATION BID #120 ml 01/16/21 [Rx Last Taken Unknown] hydrocodone-acetaminophen 1 tab PO Q6H PRN 3 Days #10 tab 03/03/21 [Rx Last Taken Unknown] Allergy/AdvReac Type Severity Reaction Status Date / Time Penicillins Allergy Unknown Verified 03/03/21 09:34 Family History Father , age 60 Myocardial infarction Hypertension Mother CAD (coronary artery disease) Hypertension HLD (hyperlipidemia) Brother Hypertension Sister Cancer Bone Cancer Surgical History H/O aortic valve replacement History of carpal tunnel surgery of left wrist History of left heart catheterization (LHC) History of mechanical aortic valve replacement (~06/2004) History of right and left heart catheterization Social History Smoking Status: Never smoker alcohol intake: current alcohol intake frequency: holidays/special occasions only Alcohol type: beer and wine substance use type: does not use caffeine: Yes Type: coffee Number of servings: 3 what type of physical activity do you participate in: none seatbelt use: always do you feel safe at home: Yes ROS ROS ED Constitutional Constitutional ED: Denies fever(s) Eyes Eyes: Denies change in vision ENT ENT ED: Denies rhinorrhea or sore throat Cardiovascular Cardiovascular: Denies chest pain or palpitations Respiratory/Chest Respiratory/Chest: Denies cough or dyspnea Gastrointestinal Gastrointestinal: Denies abdominal pain, diarrhea, nausea or vomiting Genitourinary Genitourinary ED: Denies dysuria Musculoskeletal Musculoskeletal: Reports arthralgias; Denies neck pain Integumentary Denies rash Neurologic Neurologic: Denies headache(s) Psychiatric Psychiatric: Denies suicidal thoughts EXAM Physical Exam Const Vital Signs: 03/03/21 09:34 03/03/21 10:18 Temperature 97.6 F L Temperature Source Temporal Pulse Rate 80 Respiratory Rate 14 Respiratory Effort Normal Non-Labored Respiratory Depth Normal Respiratory Pattern Normal Blood Pressure 132/71 H Blood Pressure Mean 91 Pulse Ox 96 Oxygen Delivery Method Room Air Room Air Positive well nourished and well developed General Appearance ED: well developed HEENT Reports normocephalic and head/scalp atraumatic HEENT Narrative: Abrasion to nose. No septal hematoma Eyes PERRL and EOMs intact bilaterally Neck supple Neck Narrative: No midline tenderness General: Negative for tenderness Chest Wall inspection of chest normal Resp normal respiratory effort and clear to auscultation bilaterally Cardio regular rate and regular rhythm Rate: regular rate GI non-tender and non-distended Palpation: soft; Negative for guarding or rebound tenderness present no CVA tenderness Back/Spine normal to inspection and no thoracic nor lumbar tenderness Extremity Extremity Narrative: Abrasion right lower extremity with ecchymosis. Normal distal pulses. Diffuse tenderness right shoulder and right wrist. Neuro oriented x3 Sensorium / Orientation: alert Psych mental status grossly normal MDM MDM MDM Narrative Medical decision making narrative: X-rays were reviewed by myself and radiology. Right ankle x-ray shows soft tissue swelling. Right humerus x-ray is normal. Right shoulder x-ray shows mild degree of degenerative arthrosis. Right tib-fib x-ray shows soft tissue swelling. Right wrist x-ray shows nondisplaced fracture through the waist of the scaphoid bone. CT head, cervical spine, facial bones unremarkable other than nondisplaced fracture of the tip of the nasal bone. INR 2.7. Ortho-Glass splint was applied to right wrist. Patient is advised to follow-up with orthopedics and ENT. Advised to return to the ED for worsening complaints. He is given prescription for [place]. Lab Data Attestation: I reviewed the patient's lab results. Labs: Laboratory Results - last 24 hr 03/03/21 10:10 PT 27.9 H INR 2.7 Radiography Diagnostic Testing: Radiology Impression Ankle X-Ray 03/03/21 09:41 IMPRESSION: Plantar spur. Soft tissue swelling. Electronically Signed: Harris Paulino MD at 11:00 EDT , Service support , Brain CT 03/03/21 09:41 IMPRESSION: Chronic involutional changes of the brain. 1.4 cm polyp or retention cyst at the base of the right maxillary sinus. Electronically Signed: Harris Paulino MD at 10:50 EDT , Service support , Cervical Spine CT 03/03/21 09:41 IMPRESSION: Multilevel degenerative changes, as described above. Electronically Signed: Harris Paulino MD at 10:52 EDT , Service support , Facial/Sinus 03/03/21 09:41 IMPRESSION: Nondisplaced fracture of the tip of the nasal bone. Electronically Signed: Harris Paulino MD at 10:54 EDT , Service support , Humerus X-Ray 03/03/21 09:41 IMPRESSION: Normal x-ray examination of the humerus. Electronically Signed: Harris Paulino MD at 11:03 EDT , Service support , Shoulder X-Ray 03/03/21 09:41 IMPRESSION: Mild degree of degenerative arthrosis of the glenohumeral joint. Electronically Signed: Harris Paulino MD at 11:04 EDT , Service support , Tibia/Fibula X-Ray 03/03/21 09:41 IMPRESSION: Soft tissue swelling. Electronically Signed: Harris Paulino MD at 11:03 EDT , Service support , Wrist X-Ray 03/03/21 09:41 IMPRESSION: Nondisplaced fracture through the waist of the scaphoid bone. Soft tissue swelling. 6 mm x 1 mm linear density in the soft tissues overlying the proximal phalanx of the thumb. Electronically Signed: Harris Paulino MD at 11:02 EDT , Service support , Discharge Plan Triage Chief Complaint: Fall ED Provider: [facility],Nathaly Dx/Rx/DC Orders Clinical Impression: Fracture of scaphoid, Fracture of nasal bone, Abrasion, multiple sites, Fall Instructions: ED Nose Fracture, with X-Ray, ED SCAPHOID FX Wrist Certain Prescriptions: New hydrocodone-acetaminophen 5-325 mg tablet 1 tab PO Q6H PRN (Reason: pain) 3 Days Qty: 10 RF: 0 No Action aspirin [Ecotrin Low Strength] 81 mg tablet,delayed release (DR/EC) 81 mg PO QDAY RF: 0 Proventil HFA 90 mcg/actuation HFA aerosol inhaler 2 puff INHALATION Q4H PRN (Reason: shortness of breath or wheezing) Qty: 6.7 RF: 6 cetirizine 10 mg capsule 10 mg PO HS Qty: 90 RF: 3 montelukast 10 mg tablet 10 mg PO QPM Qty: 90 RF: 3 spironolactone [Aldactone] 50 mg tablet 50 mg PO QDAY Qty: 90 RF: 3 metoprolol succinate [Toprol XL] 100 mg tablet extended release 24 hr 100 mg PO QDAY Qty: 90 RF: 3 warfarin 5 mg tablet 5 mg PO QDAY Qty: 90 RF: 3 potassium chloride [Klor-Con M20] 20 mEq tablet,ER particles/crystals 20 meq PO QDAY Qty: 90 RF: 3 warfarin 1 mg tablet 2 mg PO .COMPLEX Qty: 180 RF: 3 ramipril 10 mg capsule 10 mg PO QDAY Qty: 90 RF: 3 budesonide 1 mg/2 mL suspension for nebulization 1 mg inhalation BID Qty: 120 RF: 6 Primary Care Provider: Sindhu Bird Referrals: Sindhu Bird MD [Primary Care Provider] - Chris Villa MD [STAFF PHYSICIAN] - Kenton Lagunas DO [STAFF PHYSICIAN] - Disposition Disposition: Home, Self Care
[2021-03-03 10:30] LABS: International Normalized Ratio 2.7; Prothrombin Time (Protime)PT. 27.9 SECONDS (11.7-14.9)
[2021-03-03] MEDS: HYDROcodone Bitartrate/Apap 5/325 Tablet PO (14:08)
[2021-03-03 14:24] VITALS: BP 140/82; PULSE 82; RESP 18; O2SAT 98
== END 2021-03-03 14:26 | disposition home or self-care (01) ==
PROVIDERS: Emergency Provider Emergency Medicine; PCP Family Medicine
DX: S62.024A Nondisplaced fracture of middle third of navicular [scaphoid] bone of right wrist, initial encounter for closed fracture (principal); S02.2XXA Fracture of nasal bones, initial encounter for closed fracture; S00.31XA Abrasion of nose, initial encounter; S80.811A Abrasion, right lower leg, initial encounter; W18.09XA Striking against other object with subsequent fall, initial encounter; Y93.9 Activity, unspecified; Y92.9 Unspecified place or not applicable; Y99.9 Unspecified external cause status; I25.10 Atherosclerotic heart disease of native coronary artery without angina pectoris; I10 Essential (primary) hypertension; J44.9 Chronic obstructive pulmonary disease, unspecified; E78.2 Mixed hyperlipidemia; E87.6 Hypokalemia; E66.9 Obesity, unspecified; Z68.41 Body mass index [BMI] 40.0-44.9, adult; Z79.82 Long term (current) use of aspirin; Z79.01 Long term (current) use of anticoagulants; Z79.899 Other long term (current) drug therapy
CPT/HCPCS: 29125; 70450; 70486; 72125; 73030; 73060; 73110; 73590; 73610; 85610; 99284; A4216

== ENCOUNTER → 2021-03-18 06:35 | Outpatient (CLI) | payer MEDICARE, OTHER, SELFPAY ==
[2021-03-03 09:34] VITALS: BMI 41.5
--- NOTE | 2021-03-18 06:37 | ECHOCS_ITS ---
Reason For Study: AVR Procedure This was a 2D Doppler, Color Flow transthoracic echocardiogram. The study was technically difficult. Contrast injection was performed. Exam performed in department. Left Ventricle Based upon the 2D echocardiographic and contrast enhanced images obtained there appears to be grossly normal left ventricular size, wall motion, and systolic function. The estimated ejection fraction is 60 %. Diastolic function is indeterminate. Right Ventricle Based upon the 2D echocardiographic images obtained there appears to be grossly normal right ventricular size and systolic function. Atria The left atrium is not well visualized. The right atrium is not well visualized. No doppler evidence for ASD. Mitral Valve Mitral valve not well visualized. Tricuspid Valve The tricuspid valve is not well visualized. Aortic Valve Mild aortic stenosis. Based upon the 2D echocardiographic images obtained there appears to be a stable mechanical aortic valve prosthesis. Pulmonic Valve The pulmonic valve is not well visualized. Great Vessels The aortic root is not well visualized. Pericardium/Pleural No pericardial effusion. Medication Diluted definity 1ml given slow IV push to enhance endocardial definition. MMode/2D Measurements & Calculations LVOT diam: 2.0 cm LVOT area: 3.0 cm2 Doppler Measurements & Calculations MV E max karthik: 60.8 cm/sec Lat Peak E' Karthik: 5.6 cm/sec Med Peak E' Karthik: 7.4 cm/sec MV A max karthik: 119.1 cm/sec E/E' lat: 10.8 E/E' med: 8.2 MV E/A: 0.51 Ao V2 max: 201.2 cm/sec LV V1 max: 105.6 cm/sec SV(LVOT): 59.5 ml Ao max P.2 mmHg LV V1 max P.5 mmHg Ao V2 mean: 137.7 cm/sec LV V1 mean P.5 mmHg Ao mean P.5 mmHg LV V1 mean: 74.8 cm/sec Ao V2 VTI: 30.9 cm LV V1 VTI: 19.7 cm GILMER(I,D): 1.9 cm2 GILMER(V,D): 1.6 cm2 PA V2 max: 86.5 cm/sec ECHO/Echo Complete W/ Contrast Interpretation Summary The study was technically difficult. Contrast injection was performed. Based upon the 2D echocardiographic and contrast enhanced images obtained there appears to be grossly normal left ventricular size, wall motion, and systolic function. The estimated ejection fraction is 60 %. Based upon the 2D echocardiographic images obtained there appears to be a stabl e mechanical aortic valve prosthesis. Mild aortic stenosis. Diastolic function is indeterminate. Ordering Physician: Blu Iyer Referring Physician: Sindhu Bird Performed By: Analia Montano RDCS
== END ==
PROVIDERS: PCP Family Medicine; Referring Provider Internal Medicine Cardiovascular Disease; Visit Provider Internal Medicine Cardiovascular Disease
DX: I71.2 Thoracic aortic aneurysm, without rupture (principal); R06.02 Shortness of breath; E78.2 Mixed hyperlipidemia; Z95.2 Presence of prosthetic heart valve; I10 Essential (primary) hypertension; I25.10 Atherosclerotic heart disease of native coronary artery without angina pectoris
CPT/HCPCS: 36415; 78452; 85610; 93017; 93306; A9500; Q9957; A4216; C8929; J3490

== ENCOUNTER 2021-03-18 09:24 | Outpatient (RCR) | payer MEDICARE, OTHER, SELFPAY ==
[2021-02-10 09:47] VITALS: BMI 42.4
== END 2021-03-18 18:00 | disposition home or self-care (01) ==
LOC: LAB 09:24
PROVIDERS: Family Provider Family Medicine; PCP Family Medicine; Referring Provider Internal Medicine Cardiovascular Disease; Visit Provider Internal Medicine Cardiovascular Disease
DX: Z95.2 Presence of prosthetic heart valve (principal); Z79.01 Long term (current) use of anticoagulants
CPT/HCPCS: 36415; 85610

== ENCOUNTER 2021-06-16 08:08 | Outpatient (RCR) | payer MEDICARE, OTHER, SELFPAY ==
[2021-03-18 23:48] VITALS: BMI 42.4
[2021-06-16 09:21] LABS: International Normalized Ratio 2.9; Prothrombin Time (Protime)PT. 29.3 SECONDS (11.7-14.9)
[2021-06-16 09:49] LABS: AST(SGOT) 20 U/L (15-37); Alanine Aminotransfer ALT/SGPT 28 U/L (16-61); Albumin, Serum 3.4 g/dL (3.2-5.0); Alkaline Phosphatase 55 U/L (45-117); Bilirubin, Direct 0.14 mg/dL (0.00-0.30); Cholesterol 141 mg/dL (200); Globulin 3.5 g/dL (2.2-4.2); High Density Lipoprotein 35 mg/dL; Protein, Total 6.9 g/dL (6.4-8.2); Triglycerides 184 mg/dL; Very Low Density Lipoprotein 37 mg/dL (5-40)
== END 2021-06-17 18:00 | disposition home or self-care (01) ==
LOC: LAB 08:08
PROVIDERS: Nurse Practitioner Family; Family Provider Family Medicine; PCP Family Medicine; Referring Provider Internal Medicine Cardiovascular Disease; Visit Provider Internal Medicine Cardiovascular Disease
DX: Z95.2 Presence of prosthetic heart valve (principal); Z79.01 Long term (current) use of anticoagulants; E78.00 Pure hypercholesterolemia, unspecified
CPT/HCPCS: 36415; 80061; 80076; 85610

== ENCOUNTER 2021-08-18 08:58 | Outpatient (RCR) | payer MEDICARE, OTHER, SELFPAY ==
[2021-06-18 03:30] VITALS: BMI 42.4
[2021-07-28 09:36] LABS: Basophil# 0.05 X10^3/uL; Basophil% 0.7 % (0-1); Eosinophil# 0.11 X10^3/uL; Eosinophils% 1.5 % (0-5); Hemoglobin 15.3 g/dL (13.0-16.5); Lymphocyte % 20.3 % (19-41); Mean Corp Hgb Conc 33.3 g/dL (32-36); Mean Corpuscular Hgb 28.9 pg (27.0-32.0); Mean Corpuscular Volume 86.8 fL (80-94); Mean Platelet Vol. 10.8 fl (6.2-12.0); Monocyte# 0.62 X10^3/uL; Monocyte% 8.4 % (0-10); NRBC Flagged by Analyzer 0 % (0-5); Neutrophil # 5.03 X10^3/uL (2.7-7.7); Platelet Count 184 K/mm3 (150-450); RBC Distribution Width CV 15.2 % (11.6-14.6); RBC Distribution Width SD 47.9 fl (35.1-43.9); White Blood Count 7.4 K/mm3 (4.4-11.0)
[2021-08-06 11:22] LABS: International Normalized Ratio 2.2
[2021-08-12 09:38] LABS: International Normalized Ratio 2.3; Prothrombin Time (Protime)PT. 24.8 SECONDS (11.7-14.9)
[2021-08-18 10:32] LABS: International Normalized Ratio 1.6; Prothrombin Time (Protime)PT. 18.6 SECONDS (11.7-14.9)
== END 2021-08-18 18:00 | disposition home or self-care (01) ==
LOC: LAB 08:58
PROVIDERS: Nurse Practitioner Acute Care; Family Provider Family Medicine; PCP Family Medicine; Referring Provider Internal Medicine Cardiovascular Disease; Visit Provider Internal Medicine Cardiovascular Disease
DX: Z95.2 Presence of prosthetic heart valve (principal); Z79.01 Long term (current) use of anticoagulants
CPT/HCPCS: 36415; 85025; 85610

== ENCOUNTER 2021-09-11 14:16 | Outpatient (RCR) | payer MEDICARE, OTHER, SELFPAY ==
[2021-08-19 01:22] VITALS: BMI 42.4
[2021-08-22 12:21] LABS: International Normalized Ratio 1.1; Prothrombin Time (Protime)PT. 13.3 SECONDS (11.7-14.9)
[2021-08-29 11:01] LABS: International Normalized Ratio 1.1; Prothrombin Time (Protime)PT. 13.2 SECONDS (11.7-14.9)
[2021-09-01 10:31] LABS: International Normalized Ratio 1.3; Prothrombin Time (Protime)PT. 15.1 SECONDS (11.7-14.9)
[2021-09-03 10:40] LABS: International Normalized Ratio 1.7; Prothrombin Time (Protime)PT. 19.4 SECONDS (11.7-14.9)
[2021-09-08 09:25] LABS: International Normalized Ratio 2.3; Prothrombin Time (Protime)PT. 24.8 SECONDS (11.7-14.9)
[2021-09-11 14:39] LABS: International Normalized Ratio 2.5; Prothrombin Time (Protime)PT. 26.1 SECONDS (11.7-14.9)
== END 2021-09-11 23:59 | disposition home or self-care (01) ==
LOC: LAB 14:16
PROVIDERS: Family Provider Family Medicine; PCP Family Medicine; Referring Provider Internal Medicine Cardiovascular Disease; Visit Provider Internal Medicine Cardiovascular Disease
DX: Z79.01 Long term (current) use of anticoagulants (principal); Z95.2 Presence of prosthetic heart valve
CPT/HCPCS: 36415; 85610

== ENCOUNTER 2021-09-24 13:59 | Outpatient (RCR) | payer MEDICARE, OTHER, SELFPAY ==
[2021-09-16 09:49] VITALS: BMI 42.4
== END 2021-10-16 18:00 | disposition home or self-care (01) ==
LOC: LAB 13:59
PROVIDERS: Family Provider Family Medicine; PCP Family Medicine; Referring Provider Internal Medicine Cardiovascular Disease; Visit Provider Internal Medicine Cardiovascular Disease
DX: Z95.2 Presence of prosthetic heart valve (principal); Z79.01 Long term (current) use of anticoagulants
CPT/HCPCS: 36415; 85610

== ENCOUNTER 2021-11-13 08:05 | Outpatient (RCR) | payer MEDICARE, OTHER, SELFPAY ==
[2021-10-17 02:37] VITALS: BMI 42.4
[2021-11-13 08:54] LABS: International Normalized Ratio 2.5; Prothrombin Time (Protime)PT. 26.9 SECONDS (11.7-14.9)
== END 2021-11-13 18:00 | disposition home or self-care (01) ==
LOC: LAB 08:05
PROVIDERS: Family Provider Family Medicine; PCP Family Medicine; Referring Provider Internal Medicine Cardiovascular Disease; Visit Provider Internal Medicine Cardiovascular Disease
DX: Z95.2 Presence of prosthetic heart valve (principal); Z79.01 Long term (current) use of anticoagulants
CPT/HCPCS: 36415; 85610

== ENCOUNTER 2022-01-15 09:35 | Outpatient (RCR) | payer MEDICARE, OTHER, SELFPAY ==
[2021-11-16 03:32] VITALS: BMI 42.4
[2022-01-15 10:59] LABS: International Normalized Ratio 3.8
== END 2022-01-15 23:59 | disposition home or self-care (01) ==
LOC: LAB 09:35
PROVIDERS: Family Provider Family Medicine; PCP Family Medicine; Referring Provider Internal Medicine Cardiovascular Disease; Visit Provider Internal Medicine Cardiovascular Disease
DX: Z95.2 Presence of prosthetic heart valve (principal); Z79.01 Long term (current) use of anticoagulants
CPT/HCPCS: 36415; 85610

== ENCOUNTER 2022-02-02 09:57 | Outpatient (RCR) | payer MEDICARE, OTHER, SELFPAY ==
[2022-01-16 07:15] VITALS: BMI 42.4
[2022-02-02 10:42] LABS: International Normalized Ratio 3.2; Prothrombin Time (Protime)PT. 32.7 SECONDS (11.7-14.9)
== END 2022-02-15 02:46 | disposition home or self-care (01) ==
LOC: LAB 09:57
PROVIDERS: Family Provider Family Medicine; PCP Family Medicine; Referring Provider Internal Medicine Cardiovascular Disease; Visit Provider Internal Medicine Cardiovascular Disease
DX: Z79.01 Long term (current) use of anticoagulants; Z95.2 Presence of prosthetic heart valve
CPT/HCPCS: 36415; 85610

== ENCOUNTER 2022-03-18 09:40 | Outpatient (RCR) | payer MEDICARE, OTHER, SELFPAY ==
[2022-02-15 02:46] VITALS: BMI 42.4
[2022-02-26 09:12] LABS: International Normalized Ratio 2.5
[2022-02-26 09:36] LABS: AST(SGOT) 16 U/L (15-37); Alanine Aminotransfer ALT/SGPT 29 U/L (16-61); Albumin, Serum 3.6 g/dL (3.2-5.0); Alkaline Phosphatase 47 U/L (45-117); Bilirubin, Direct 0.22 mg/dL (0.00-0.30); Cholesterol 148 mg/dL (200); Globulin 3.3 g/dL (2.2-4.2); High Density Lipoprotein 40 mg/dL; Protein, Total 6.9 g/dL (6.4-8.2); Triglycerides 151 mg/dL; Very Low Density Lipoprotein 30 mg/dL (5-40)
[2022-03-10 09:05] LABS: International Normalized Ratio 3.5; Prothrombin Time (Protime)PT. 34.8 SECONDS (11.7-14.9)
[2022-03-13 09:59] LABS: Prothrombin Time (Protime)PT. 30.5 SECONDS (11.7-14.9)
[2022-03-18 10:42] LABS: International Normalized Ratio 2.3; Prothrombin Time (Protime)PT. 24.6 SECONDS (11.7-14.9)
== END 2022-03-18 18:00 | disposition home or self-care (01) ==
LOC: LAB 09:40
PROVIDERS: Nurse Practitioner Family; Family Provider Family Medicine; PCP Family Medicine; Referring Provider Internal Medicine Cardiovascular Disease; Visit Provider Internal Medicine Cardiovascular Disease
DX: Z95.2 Presence of prosthetic heart valve (principal); Z79.01 Long term (current) use of anticoagulants; E78.00 Pure hypercholesterolemia, unspecified; E78.2 Mixed hyperlipidemia
CPT/HCPCS: 36415; 80061; 80076; 85610

== ENCOUNTER 2022-04-21 09:12 | Outpatient (RCR) | payer MEDICARE, OTHER, SELFPAY ==
[2022-03-18 23:15] VITALS: BMI 42.4
[2022-04-21 10:21] LABS: International Normalized Ratio 2.9
== END 2022-04-21 18:00 | disposition home or self-care (01) ==
LOC: LAB 09:12
PROVIDERS: Family Provider Family Medicine; PCP Family Medicine; Referring Provider Internal Medicine Cardiovascular Disease; Visit Provider Internal Medicine Cardiovascular Disease
DX: Z95.2 Presence of prosthetic heart valve; Z79.01 Long term (current) use of anticoagulants
CPT/HCPCS: 36415; 85610

== ENCOUNTER 2022-06-05 10:19 | Outpatient (RCR) | payer MEDICARE, OTHER, SELFPAY ==
[2022-05-19 10:10] VITALS: BMI 42.4
[2022-06-05 11:27] LABS: International Normalized Ratio 2.5
== END 2022-06-17 18:00 | disposition home or self-care (01) ==
LOC: LAB 10:19
PROVIDERS: Family Provider Family Medicine; PCP Family Medicine; Referring Provider Internal Medicine Cardiovascular Disease; Visit Provider Internal Medicine Cardiovascular Disease
DX: Z95.2 Presence of prosthetic heart valve; Z79.01 Long term (current) use of anticoagulants
CPT/HCPCS: 36415; 85610

== ENCOUNTER 2022-08-14 09:28 | Outpatient (RCR) | payer MEDICARE, OTHER, SELFPAY ==
[2022-06-18 00:32] VITALS: BMI 42.4
[2022-07-21 12:38] LABS: Prothrombin Time (Protime)PT. 31.1 SECONDS (11.7-14.9)
[2022-08-14 11:14] LABS: International Normalized Ratio 1.3; Prothrombin Time (Protime)PT. 16.3 SECONDS (11.7-14.9)
== END 2022-08-14 18:00 | disposition home or self-care (01) ==
LOC: LAB 09:28
PROVIDERS: Family Provider Family Medicine; PCP Family Medicine; Referring Provider Internal Medicine Cardiovascular Disease; Visit Provider Internal Medicine Cardiovascular Disease
DX: Z95.2 Presence of prosthetic heart valve; Z79.01 Long term (current) use of anticoagulants
CPT/HCPCS: 36415; 85610

== ENCOUNTER 2022-09-01 15:10 | Outpatient (RCR) | payer MEDICARE, OTHER, SELFPAY ==
[2022-08-19 08:32] VITALS: BMI 42.4
[2022-08-21 11:05] LABS: International Normalized Ratio 1.2; Prothrombin Time (Protime)PT. 15.1 SECONDS (11.7-14.9)
[2022-08-24 11:23] LABS: International Normalized Ratio 1.9; Prothrombin Time (Protime)PT. 21.6 SECONDS (11.7-14.9)
[2022-08-26 11:24] LABS: International Normalized Ratio 2.5; Prothrombin Time (Protime)PT. 26.3 SECONDS (11.7-14.9)
[2022-09-01 16:11] LABS: International Normalized Ratio 2.3; Prothrombin Time (Protime)PT. 25.3 SECONDS (11.7-14.9)
== END 2022-09-01 18:00 | disposition home or self-care (01) ==
LOC: LAB 15:10
PROVIDERS: Family Provider Family Medicine; PCP Family Medicine; Referring Provider Internal Medicine Cardiovascular Disease; Visit Provider Internal Medicine Cardiovascular Disease
DX: Z95.2 Presence of prosthetic heart valve; Z79.01 Long term (current) use of anticoagulants
CPT/HCPCS: 36415; 85610

== ENCOUNTER 2022-09-07 03:37 | Observation (INO) | payer MEDICARE, OTHER, SELFPAY ==
[2022-09-07] VITALS (10 sets, daily range): BP systolic 109–132; BP diastolic 69–86; PULSE 79–97; RESP 16–25; TEMP 36.1–36.9; O2SAT 93–98; BMI 41.0; BMI 41.1
--- NOTE | 2022-09-07 03:43 | RAD_ITS ---
EXAM: XR CHEST, 1 VIEW CLINICAL INDICATION: chest pain chest pain TECHNIQUE: Frontal view of the chest. This report was created using whoactually report generation technology. COMPARISON: 04/27/2019 and 09/07/2022. FINDINGS: LUNGS AND PLEURAL SPACES: Unremarkable. No consolidation or edema. No pneumothorax. No effusion. HEART: Unremarkable. Cardiac silhouette not enlarged. MEDIASTINUM: Central airways and mediastinal contour are unremarkable. BONES/JOINTS: There are sternotomy wires. There is an aortic valve prosthesis. SOFT TISSUES: Unremarkable. UPPER ABDOMEN: There is chronic elevation of the dome of the left hemidiaphragm. RAD/Chest 1 View (Portable) IMPRESSION: 1. Aortic valve prosthesis. 2. Chronic elevation of the left hemidiaphragm. 3. No evidence for acute cardiopulmonary pathology. Electronically Signed: David Hammond MD at 5:15 EST Reading Location ID and State: [facility] / [place] , Service support ,
--- NOTE | 2022-09-07 03:44 | EKG12_ITS ---
Test Reason : CP Blood Pressure : / mmHG Vent. Rate : 089 BPM Atrial Rate : 089 BPM P-R Int : 176 ms QRS Dur : 110 ms QT Int : 394 ms P-R-T Axes : 044 066 059 degrees QTc Int : 479 ms Normal sinus rhythm Normal ECG Confirmed by DARIA DOE, ESTEFANY ([id number]), digital editor OSIEL ARIAS ([id number]) on 09/07/2022 1:41:28 PM Referred By: BINH Confirmed By:ESTEFANY HUFF MD
[2022-09-07 04:02] LABS: Absolute Lymphocyte Count 1.92 X10^3/uL (0.83-4.51); Absolute Neutrophil Count 13.9 X10^3/uL (2.0-7.7); Basophil# 0.16 X10^3/uL; Basophil% 0.9 % (0-1); Eosinophil# 0.11 X10^3/uL; Eosinophils% 0.6 % (0-5); Hemoglobin 14.7 g/dL (13.0-16.5); Lymphocyte # 1.92 X10^3/ul (0.83-4.51); Lymphocyte % 10.9 % (19-41); Mean Corp Hgb Conc 33.4 g/dL (32-36); Mean Corpuscular Hgb 32.2 pg (27.0-32.0); Mean Corpuscular Volume 96.5 fL (80-94); Mean Platelet Vol. 10.1 fl (6.2-12.0); Monocyte# 1.13 X10^3/uL; Monocyte% 6.4 % (0-10); NRBC Flagged by Analyzer 0 % (0-5); Neutrophil # 13.89 X10^3/uL (2.7-7.7); Neutrophil % 78.5 % (47-70); Platelet Count 324 K/mm3 (150-450); RBC Distribution Width CV 12.9 % (11.6-14.6); RBC Distribution Width SD 45.6 fl (35.1-43.9); Red Blood Count 4.56 M/mm3 (4.6-6.2); White Blood Count 17.7 K/mm3 (4.4-11.0)
[2022-09-07 04:10] LABS: International Normalized Ratio 2.9; Prothrombin Time (Protime)PT. 29.8 SECONDS (11.7-14.9)
--- NOTE | 2022-09-07 04:13 | CT_ITS ---
EXAM: CT ANGIOGRAPHY CHEST, ABDOMEN AND PELVIS WITH INTRAVENOUS CONTRAST CLINICAL INDICATION: Thoracic aneurysm Thoracic aneurysm. Sudden onset of bilateral chest pain, bloody stool. History of aortic valve replacement, hypertension, COPD. Patient is on anticoagulants. TECHNIQUE: Helically acquired angiography images were obtained of the chest, abdomen and pelvis with intravenous contrast. This CT exam was performed using one or more of the following dose reduction techniques: automated exposure control, adjustment of the mA and/or kV according to patient size, and/or use of iterative reconstruction technique. This report was created using [employer] report generation technology. MIP reconstructed images were created and reviewed. CONTRAST: IV 100mL [id number] RADIATION DOSE: CTDIvol = 16.06 mGy, DLP = 1445.43 mGy-cm COMPARISON: Chest x-ray 09/07/2022. CT scan chest 04/27/2019. FINDINGS: VASCULATURE: AORTA: There is ectasia of the ascending thoracic aorta with diameter 4.3 cm. There is no increase in size compared to the 2019 study. No dissection. PULMONARY ARTERIES: Unremarkable. Normal in caliber. No obvious central pulmonary embolism although this study was not performed with the pulmonary embolism protocol. GREAT VESSELS OF AORTIC ARCH: Unremarkable. Normal in caliber. No dissection. CELIAC TRUNK AND MESENTERIC ARTERIES: No acute findings. No occlusion or significant stenosis. No dissection. RENAL ARTERIES: No acute findings. No occlusion or significant stenosis. No dissection. ILIAC ARTERIES: No acute findings. No occlusion or significant stenosis. No dissection. CHEST: LUNGS AND PLEURAL SPACES: There is chronic elevation of the dome of the left hemidiaphragm with overlying mild left basilar atelectasis. The appearance is stable. No mass. No pleural effusion or thickening. No pneumothorax. HEART: There is an aortic valve prosthesis. Heart size is normal. No pericardial effusion. MEDIASTINUM: Unremarkable. No mediastinal or hilar adenopathy. Esophagus is unremarkable. No hiatal hernia. THYROID: Unremarkable. No thyroid lesions. ABDOMEN: LIVER: Unremarkable. Homogeneous. No focal mass. GALLBLADDER AND BILE DUCTS: Unremarkable. No calcified gallstones. No gallbladder distention or wall edema. No intra- or extrahepatic biliary ductal dilation. PANCREAS: Unremarkable. No focal cystic or solid mass. SPLEEN: Unremarkable. Normal size without focal cystic or solid mass. ADRENALS: There is a 1.4 cm left adrenal adenoma. There is a 1.2 cm right adrenal adenoma. KIDNEYS AND URETERS: Unremarkable. Normal renal size and position. No hydronephrosis. STOMACH AND BOWEL: There are colonic diverticula. No stomach or bowel distention. No focal inflammatory change. PELVIS: APPENDIX: A normal appendix is seen on axial images 178-189. BLADDER: Unremarkable. REPRODUCTIVE: The prostate gland is enlarged. CHEST, ABDOMEN and PELVIS: INTRAPERITONEAL SPACE: Unremarkable. No ascites or other fluid collection. No free air. BONES/JOINTS: There are sternotomy wires. There are multilevel degenerative changes in the visualized spine. No suspicious lytic or blastic abnormality. SOFT TISSUES: Unremarkable. No discrete abdominal or pelvic wall hernia. LYMPH NODES: Unremarkable. No enlarged lymph nodes. CT/CTA Chst, Abd, Pel W and/or WO IMPRESSION: 1. Ectatic ascending thoracic aorta with diameter 4.3 cm. Finding is stable. No evidence for thoracic or abdominal aortic aneurysm. Aortic valve prosthesis in place. 2. No evidence for pulmonary embolism or aortic dissection. 3. No evidence for stenosis of abdominal or pelvic arteries. 4. No visible evidence for active GI bleed. 5. Chronic elevation of the left hemidiaphragm. No evidence for acute cardiopulmonary pathology. 6. Colonic diverticulosis without evidence for acute diverticulitis. 7. Enlarged prostate. 8. 1.4 cm left adrenal adenoma and 1.2 cm right adrenal adenoma, stable in appearance. No follow-up imaging is necessary. Consider biochemical assays to determine functional status and exclude pheochromocytoma if biopsy/resection is planned. Electronically Signed: David Hammond MD at 6:38 EST Reading Location ID and State: [facility] / [place] , Service support ,
--- NOTE | 2022-09-07 04:16 | EDS_ITS ---
HPI History of Present Illness Chief Complaint: Chest Pain Narrative Narrative: 67-year-old male presenting with chest pain. He states it felt like pressure. It started about 2 AM when he was having a bowel movement. He states he felt lightheaded and sweaty. Patient states he also noted blood in his stool over the last day. He states that makes a dark stool and red stool. His states that he had blood in the toilet this morning when he had a bowel movement. He initially went to lay down and his brought him a Sprite and he started having symptoms again. Patient does have history of hypertension, hyperlipidemia, thoracic aortic aneurysm, and an artificial heart valve. He is on Coumadin for this. Recently had carpal tunnel surgery repair and was off his Coumadin. He had to be on Lovenox to bridge back to Coumadin. He is currently only on Coumadin. Patient states aside from the chest pain and the blood in stool he feels generally weak. He states especially feels weak in his legs. [facility] Medical History Aortic aneurysm, thoracic Aortic valve disease Aortic valve, bicuspid Atherosclerosis of [place] coronary artery of [place] heart without angina pectoris Breathing-related sleep disorder Carotid bruit COPD (chronic obstructive pulmonary disease) Essential hypertension GERD (gastroesophageal reflux disease) Hypokalemia Lung nodule Mixed hyperlipidemia Obesity JO ANN (obstructive sleep apnea) Snoring Thoracic aortic aneurysm without rupture Home Medications aspirin 81 mg tablet,delayed release (Ecotrin Low Strength) 81 mg PO QDAY 08/05/17 [History Last Taken Unknown] cetirizine 10 mg capsule 10 mg PO HS #90 caps 07/28/21 [Rx Last Taken Unknown] fluticasone propionate 50 mcg/actuation nasal spray,suspension 2 spray intranasal DAILY #16 grams 07/28/21 [Rx Last Taken Unknown] azelastine 205.5 mcg (0.15 %) nasal spray 1 spray intranasal BID #30 mL 08/12/21 [Rx Last Taken Unknown] albuterol sulfate 90 mcg/actuation aerosol inhaler (Proventil HFA) 2 puff inhalation Q4H PRN shortness of breath or wheezing #6.7 grams 11/13/21 [Rx Last Taken Unknown] montelukast 10 mg tablet 10 mg PO QPM #90 tabs 06/22/22 [Rx Last Taken Unknown] metoprolol succinate 50 mg tablet,extended release 24 hr 50 mg PO QDAY #90 tabs 06/05/22 [Rx Last Taken Unknown] potassium chloride 20 mEq tablet,extended release(part/cryst) (Klor-Con M) 20 meq PO QDAY #90 tabs 06/05/22 [Rx Last Taken Unknown] ramipril 10 mg capsule 10 mg PO QDAY #90 caps 06/05/22 [Rx Last Taken Unknown] spironolactone 50 mg tablet (Aldactone) 50 mg PO QDAY #90 tabs 06/05/22 [Rx Last Taken Unknown] warfarin 1 mg tablet 2 mg PO .COMPLEX #180 tabs 06/05/22 [Rx Last Taken Unknown] warfarin 3 mg tablet 3 mg PO DAILY #90 tabs 06/05/22 [Rx Last Taken Unknown] warfarin 5 mg tablet 5 mg PO QDAY #90 tabs 06/05/22 [Rx Last Taken Unknown] enoxaparin 120 mg/0.8 mL subcutaneous syringe (Lovenox) 120 mg (0.8 mL) subcut Q12H Bridging for surgery #8 mL 08/21/22 [Rx Last Taken Unknown] Allergy/AdvReac Type Severity Reaction Status Date / Time Penicillins Allergy Unknown Verified 06/05/22 09:44 Family History Father , age 60 Myocardial infarction Hypertension Mother CAD (coronary artery disease) Hypertension HLD (hyperlipidemia) Brother Hypertension Sister Cancer Bone Cancer Surgical History H/O aortic valve replacement History of carpal tunnel surgery of left wrist History of left heart catheterization (LHC) History of mechanical aortic valve replacement (~06/2004) History of right and left heart catheterization Social History Smoking Status: Never smoker alcohol intake: current alcohol intake frequency: holidays/special occasions only Alcohol type: beer and wine substance use type: does not use caffeine: Yes Type: coffee Number of servings: 3 what type of physical activity do you participate in: none seatbelt use: always do you feel safe at home: Yes ROS ROS ED Constitutional Constitutional ED: Denies chills, fever(s) or sweats Eyes Eyes: Denies blurry vision or change in vision ENT ENT ED: Denies ear pain or sore throat Cardiovascular Cardiovascular: Denies chest pain, palpitations or racing heartbeat Respiratory/Chest Respiratory/Chest: Denies cough, dyspnea or sputum Gastrointestinal Gastrointestinal: Reports other Details: Melena and hematochezia ; Denies abdominal pain, constipation, diarrhea, nausea or vomiting Genitourinary Genitourinary ED: Denies dysuria, hematuria or urinary frequency Musculoskeletal Musculoskeletal: Denies arthralgias, myalgias or neck pain Integumentary Denies abscess, Abrasions or rash Neurologic Neurologic: Denies headache(s), paresthesias or weakness Psychiatric Psychiatric: Denies anxiety, depression, suicidal ideation or suicidal thoughts Endocrine Endocrinology: Denies polydipsia or polyuria EXAM Physical Exam Const Vital Signs: 09/07/22 03:38 09/07/22 04:41 09/07/22 07:42 Temperature 97.8 F 97 F L Temperature Source Temporal Temporal Pulse Rate 89 82 Respiratory Rate 17 25 H Blood Pressure 115/78 116/70 Blood Pressure Mean 90 85 Pulse Ox 95 98 97 Oxygen Delivery Method Room Air Room Air Room Air Positive well nourished General Appearance ED: NAD; Negative for pallor HEENT Reports moist mucous membranes normocephalic and atraumatic Eyes PERRL and EOMs intact bilaterally General Eye ED: Negative for pale conjunctiva or scleral icterus Chest Wall inspection of chest normal and palpation of chest normal Resp normal respiratory effort and clear to auscultation bilaterally Auscultation: Negative for rales or rhonchi Cardio regular rate and regular rhythm GI normal to inspection, nondistended, normoactive bowel sounds Back/Spine no CVA tenderness Extremity normal to inspection Neuro oriented x3 and CN's II-XII intact bilaterally Sensorium / Orientation: awake and alert Motor Exam: strength 5/5 throughout Psych mental status grossly normal Skin no rashes or lesions noted General Skin Exam: Negative for jaundice or pallor Heart Score History: Slightly/Non-Suspicious ECG: Normal Age: >/= 65 years Risk Factors: >/= 3 Risk Factors or History of CAD Troponin: </= Normal Limit Score: 4 MDM MDM MDM Narrative Medical decision making narrative: Patient presenting with chest pain and also complaining of bright red blood per rectum. He also reports that there are some dark blood which may be melanotic. EKG was obtained and on my interpretation shows normal sinus rhythm with a ventricular rate of 89 bpm without sign of ischemic change or dysrhythmia. Differential includes but is not limited to ACS, PE, aortic dissection, pneumonia, gastric ulcer, pneumothorax, costochondritis, upper or lower GI bleed. CBC to assess white blood cell count, hemoglobin, platelets, differential. PT/INR he has patient is on Coumadin to determine if he is therapeutic. BMP for renal function and electrolytes. Hemoglobin is 14.7 however this is lower than on 07/28/2021 when his hemoglobin was 15.3. Prior to that it was in the 16-17 range. INR therapeutic at 2.9. Renal function appears normal however the patient's BUN is elevated at 42 and creatinine is at baseline 1.15 which would be consistent with GI bleed. Glucose slightly elevated at 151 with no anion gap. Patient given Protonix 40 mg IV. High-sensitivity troponin returned at 8. Patient was typed and screened. CTA of the chest abdomen pelvis was obtained to rule out dissection or PE. This is negative. There is no acute abdominal findings. Unclear why the patient has an elevated white blood cell count. Delta troponin came back at 10. No significant interval change. I discussed the patient with Dr. Mcgovern as he is on Coumadin and has bright red bleeding per rectum as well as melena. He recommended holding the Coumadin. He recommended admitting the patient to medicine. He will likely need upper and lower endoscopy. Impression: 1. Chest pain 2. GI bleed 3. Leukocytosis Lab Data Attestation: I reviewed the patient's lab results. Labs: Laboratory Results - last 24 hr 09/07/22 09/07/22 09/07/22 03:51 03:51 03:51 WBC 17.7 H RBC 4.56 L Hgb 14.7 Hct 44.0 MCV 96.5 H MCH 32.2 H MCHC 33.4 RDW Std Deviation 45.6 H RDW Coeff of Becki 12.9 Plt Count 324 MPV 10.1 Immature Gran % (Auto) 2.700 H Neut % (Auto) 78.5 H Lymph % (Auto) 10.9 L [place] % (Auto) 6.4 Eos % (Auto) 0.6 Baso % (Auto) 0.9 Absolute Neuts (auto) 13.9 H Absolute Lymphs (auto) 1.92 Nucleated RBC % 0 PT 29.8 H INR 2.9 Sodium 138 Potassium 4.4 Chloride 107 Carbon Dioxide 24.0 Anion Gap 7 BUN 42 H Creatinine 1.15 Estim Creat Clear Calc 61.48 Est GFR (MDRD) Af Amer 81 Est GFR (MDRD) Non-Af 67 BUN/Creatinine Ratio 36.5 H Glucose 151 H Calcium 8.9 Troponin I High Sens 8 Blood Type Antibody Screen 09/07/22 09/07/22 09/07/22 04:24 04:24 05:35 WBC RBC Hgb Hct MCV MCH MCHC RDW Std Deviation RDW Coeff of Becki Plt Count MPV Immature Gran % (Auto) Neut % (Auto) Lymph % (Auto) [place] % (Auto) Eos % (Auto) Baso % (Auto) Absolute Neuts (auto) Absolute Lymphs (auto) Nucleated RBC % PT INR Sodium Potassium Chloride Carbon Dioxide Anion Gap BUN Creatinine Estim Creat Clear Calc Est GFR (MDRD) Af Amer Est GFR (MDRD) Non-Af BUN/Creatinine Ratio Glucose Calcium Troponin I High Sens 10 Blood Type B POSITIVE Antibody Screen TNP NEGATIVE Radiography Diagnostic Testing: Clinical Impression(s) from Imaging Studies Chest X-Ray 09/07/22 03:43 IMPRESSION: 1. Aortic valve prosthesis. 2. Chronic elevation of the left hemidiaphragm. 3. No evidence for acute cardiopulmonary pathology. Electronically Signed: David Hammond MD at 5:15 EST Reading Location ID and State: [address] [place] [address] , Service support , Chest/Abdomen/Pelvis CTA 09/07/22 04:13 IMPRESSION: 1. Ectatic ascending thoracic aorta with diameter 4.3 cm. Finding is stable. No evidence for thoracic or abdominal aortic aneurysm. Aortic valve prosthesis in place. 2. No evidence for pulmonary embolism or aortic dissection. 3. No evidence for stenosis of abdominal or pelvic arteries. 4. No visible evidence for active GI bleed. 5. Chronic elevation of the left hemidiaphragm. No evidence for acute cardiopulmonary pathology. 6. Colonic diverticulosis without evidence for acute diverticulitis. 7. Enlarged prostate. 8. 1.4 cm left adrenal adenoma and 1.2 cm right adrenal adenoma, stable in appearance. No follow-up imaging is necessary. Consider biochemical assays to determine functional status and exclude pheochromocytoma if biopsy/resection is planned. Electronically Signed: David Hammond MD at 6:38 EST , Discharge Plan Triage Chief Complaint: Chest Pain ED Provider: Vishal Sabillon Dx/Rx/DC Orders Prescriptions: No Action aspirin [Ecotrin Low Strength] 81 mg tablet,delayed release (DR/EC) 81 mg PO QDAY fluticasone propionate 50 mcg/actuation spray,suspension 2 spray intranasal DAILY Qty: 16 3RF cetirizine 10 mg capsule 10 mg PO HS Qty: 90 3RF azelastine 205.5 mcg (0.15 %) spray,non-aerosol 1 spray intranasal BID Qty: 30 11RF Rx Instructions: administer into each nostril metoprolol succinate 50 mg tablet extended release 24 hr 50 mg PO QDAY Qty: 90 3RF potassium chloride [Klor-Con M20] 20 mEq tablet,ER particles/crystals 20 meq PO QDAY Qty: 90 3RF ramipril 10 mg capsule 10 mg PO QDAY Qty: 90 3RF spironolactone [Aldactone] 50 mg tablet 50 mg PO QDAY Qty: 90 3RF warfarin 5 mg tablet 5 mg PO QDAY Qty: 90 3RF Protocol: Dose Management Condition: Wednesday Dose/Route: 5 mg Instruction: 1 x 5 mg tablet Condition: Wednesday Dose/Route: 8 mg Instruction: 1 x 3 mg tablet, 1 x 5 mg tablet Condition: Wednesday Dose/Route: 8 mg Instruction: 1 x 3 mg tablet, 1 x 5 mg tablet Condition: Wednesday Dose/Route: 8 mg Instruction: 1 x 3 mg tablet, 1 x 5 mg tablet Condition: Dose/Route: 5 mg Instruction: 1 x 5 mg tablet Condition: Wednesday Dose/Route: 8 mg Instruction: 1 x 3 mg tablet, 1 x 5 mg tablet Condition: Wednesday Dose/Route: 5 mg Instruction: 1 x 5 mg tablet Protocol Text: Adjustment Start Date: Wednesday09/01/22 INR Value: 2.3 INR Date: 09/01/22 Recheck Date: 09/08/22 Rx Instructions: take 7 mg a day ( 5 mg and two 1 mg) warfarin 1 mg tablet 2 mg PO .COMPLEX Qty: 180 3RF Protocol: Dose Management Condition: Wednesday Dose/Route: 5 mg Instruction: 1 x 5 mg tablet Condition: Wednesday Dose/Route: 8 mg Instruction: 1 x 3 mg tablet, 1 x 5 mg tablet Condition: Wednesday Dose/Route: 8 mg Instruction: 1 x 3 mg tablet, 1 x 5 mg tablet Condition: Wednesday Dose/Route: 8 mg Instruction: 1 x 3 mg tablet, 1 x 5 mg tablet Condition: Dose/Route: 5 mg Instruction: 1 x 5 mg tablet Condition: Wednesday Dose/Route: 8 mg Instruction: 1 x 3 mg tablet, 1 x 5 mg tablet Condition: Wednesday Dose/Route: 5 mg Instruction: 1 x 5 mg tablet Protocol Text: Adjustment Start Date: Wednesday09/01/22 INR Value: 2.3 INR Date: 09/01/22 Recheck Date: 09/08/22 Rx Instructions: 1 mg PO take two tablets with a 5 mg tablet to = 7 mg daily warfarin 3 mg tablet 3 mg PO DAILY Qty: 90 3RF Protocol: Dose Management Condition: Wednesday Dose/Route: 5 mg Instruction: 1 x 5 mg tablet Condition: Wednesday Dose/Route: 8 mg Instruction: 1 x 3 mg tablet, 1 x 5 mg tablet Condition: Wednesday Dose/Route: 8 mg Instruction: 1 x 3 mg tablet, 1 x 5 mg tablet Condition: Wednesday Dose/Route: 8 mg Instruction: 1 x 3 mg tablet, 1 x 5 mg tablet Condition: Dose/Route: 5 mg Instruction: 1 x 5 mg tablet Condition: Wednesday Dose/Route: 8 mg Instruction: 1 x 3 mg tablet, 1 x 5 mg tablet Condition: Wednesday Dose/Route: 5 mg Instruction: 1 x 5 mg tablet Protocol Text: Adjustment Start Date: Wednesday09/01/22 INR Value: 2.3 INR Date: 09/01/22 Recheck Date: 09/08/22 Rx Instructions: Take 1 tab daily in addition to 5 mg tab to = 8 mg daily, or as directed for dose changes. Proventil HFA 90 mcg/actuation HFA aerosol inhaler 2 puff INHALATION Q4H PRN (Reason: shortness of breath or wheezing) Qty: 6.7 6RF montelukast 10 mg tablet 10 mg PO QPM Qty: 90 3RF enoxaparin [Lovenox] 120 mg/0.8 mL syringe 120 mg subcut Q12H Qty: 8 1RF Primary Care Provider: Sindhu Bird Referrals: Sindhu Bird MD [Primary Care Provider] -
[2022-09-07 04:20] LABS: Anion Gap 7 (5-15); BUN 42 mg/dL (7-18); BUN/Creat Ratio 36.5 RATIO (10-20); Calcium,Total 8.9 mg/dL (8.5-10.1); Chloride 107 mmol/L (98-107); Creatinine, Serum 1.15 mg/dL (0.70-1.30); EST Glomerular Filtration Rate 67 mL/min (>60); Est Glom Filt Rate - Afr Amer 81 mL/min (>60); Estimated Creatinine Clearance 61.48 ml/min; Glucose 151 mg/dL (74-106); Potassium 4.4 mmol/L (3.5-5.1); Sodium Level 138 mmol/L (136-145); Troponin-I HS 8 pg/mL (3.0-78.0)
[2022-09-07 05:55] LABS: Troponin-I HS 10 pg/mL (3.0-78.0)
--- NOTE | 2022-09-07 07:25 | HP.PCM.HOS_ITS ---
HPI - General General Date of Admission: 09/07/22 Date of Service: 09/07/22 Chief Complaint: chest pain, bright red blood per rectum HPI Narrative ABDIAS ROMO, is a 67 M with a PMH as outlined who presents via the ED on 09/07/2022 with a complaint of chest pain, which was pressure like. He said it started when he was having a bowel movement. He denied chest pain radiating to his left arm, or any associted palpitations. HE did feel dizzy and lightheaded and also complained of sweating. Of note, he also said he was having bright red bleeding per rectum when he had a bowel movement, and siad he had also noted dark stools. He denied any fever, chills, nausea, vomiting or diarrhea. He is on coumadin for a mechanical valve, and says he recently had carpal tunnel surgery for which he held his coumadin, and was subsequently placed on both coumadin and bridging with lovenox. Review of systems was otherwise negative. Vitals were temp of 97.8F, PA of 89, RR of 17 and he was saturating at 95% on room air. CBC showed hb of 14.7, with wbc of 17.7 and platelets of 324. INR was 2.9 and chemistry was remarkable for BUN of 42. Troponins x [address] abdomen and pelvis showed ectatic ascending thoracic aorta with diameter of 4.3cm, as well as enlarged protate and colonic diverticulosis with no evidence of acute diverticulitis and stable bilateral adrenal adenomas. EKG showed no acute ST changes. He is being admitted to be managed for lower GI bleed and chest pain to rule out ACS. [facility] [place] Medical History Aortic aneurysm, thoracic Aortic valve disease Aortic valve, bicuspid Atherosclerosis of [place] coronary artery of [place] heart without angina pectoris Breathing-related sleep disorder Carotid bruit COPD (chronic obstructive pulmonary disease) Essential hypertension GERD (gastroesophageal reflux disease) Hypokalemia Lung nodule Mixed hyperlipidemia Obesity JO ANN (obstructive sleep apnea) Snoring Thoracic aortic aneurysm without rupture Home Medications aspirin 81 mg tablet,delayed release (Ecotrin Low Strength) 81 mg PO QDAY anticoagulant 08/05/17 [History Last Taken 09/06/22] albuterol sulfate 90 mcg/actuation aerosol inhaler (Proventil HFA) 2 puff inhalation Q4H PRN shortness of breath or wheezing #6.7 grams 11/13/21 [Rx Last Taken Unknown] warfarin 1 mg tablet 2 mg PO .COMPLEX #180 tabs 06/05/22 [Rx Last Taken 09/06/22] warfarin 3 mg tablet 3 mg PO DAILY #90 tabs 06/05/22 [Rx Last Taken 09/04/22] warfarin 5 mg tablet 5 mg PO QDAY #90 tabs 06/05/22 [Rx Last Taken 09/06/22] budesonide 160 mcg-glycopyr 9 mcg-formot 4.8 mcg/actuation HFA inhaler (Breztri Aerosphere) 2 inh inhalation BID copd 09/07/22 [History Last Taken 09/06/22] cetirizine 10 mg capsule 10 mg PO HS allergy 09/07/22 [History Last Taken 09/06/22] metoprolol succinate 50 mg tablet,extended release 24 hr 50 mg PO QDAY b/p 09/07/22 [History Last Taken 09/06/22] montelukast 10 mg tablet 10 mg PO QPM allergies 09/07/22 [History Last Taken 09/06/22] potassium chloride 20 mEq tablet,extended release(part/cryst) (Klor-Con M) 20 meq PO QDAY k replacement 09/07/22 [History Last Taken 09/06/22] ramipril 10 mg capsule 10 mg PO QDAY b/p 09/07/22 [History Last Taken 09/06/22] spironolactone 50 mg tablet (Aldactone) 50 mg PO QDAY diuretic 09/07/22 [History Last Taken 09/06/22] Allergy/AdvReac Type Severity Reaction Status Date / Time Penicillins Allergy Unknown Verified 06/05/22 09:44 Family History Father , age 60 Myocardial infarction Hypertension Mother CAD (coronary artery disease) Hypertension HLD (hyperlipidemia) Brother Hypertension Sister Cancer Bone Cancer Surgical History H/O aortic valve replacement History of carpal tunnel surgery of left wrist History of left heart catheterization (LHC) History of mechanical aortic valve replacement (~06/2004) History of right and left heart catheterization Social History Smoking Status: Never smoker alcohol intake: current alcohol intake frequency: holidays/special occasions only Alcohol type: beer and wine substance use type: does not use caffeine: Yes Type: coffee Number of servings: 3 what type of physical activity do you participate in: none seatbelt use: always do you feel safe at home: Yes ROS Constitutional Constitutional: Denies anorexia, chills, fatigue, fever(s), malaise or weakness Eyes Eyes: Denies change in vision ENT HEENT: Denies dysphagia, nasal congestion, nasal discharge or sore throat Cardiovascular Cardiovascular: Reports chest pain; Denies dyspnea on exertion, edema, lightheadedness, orthopnea, palpitations, paroxysmal nocturnal dyspnea, rapid heart rate or syncope Respiratory/Chest Respiratory/Chest: Denies cough, dyspnea, shortness of breath at rest or shortness of breath with exertion Gastrointestinal Gastrointestinal: Denies abdominal pain, constipation, diarrhea, nausea or vomiting Genitourinary Genitourinary: Denies burning urination or dysuria Musculoskeletal Musculoskeletal: Denies arthralgias Neurologic Neurologic: Denies confusion, dizziness, focal weakness, headache(s), numbness, seizures or syncope Psychiatric Psychiatric: Denies anxiety Endocrine Endocrinology: Denies change in body appearance Hematologic/Lymphatic Hematologic/Lymphatic: Denies anemia Vital Signs Vital Signs Vital Signs: 09/07/22 03:38 09/07/22 04:41 Temperature 97.8 F Temperature Source Temporal Pulse Rate 89 Respiratory Rate 17 Blood Pressure 115/78 Blood Pressure Mean 90 Pulse Ox 95 98 Oxygen Delivery Method Room Air Room Air Weight Weight: 277 lb 12.519 oz Body Mass Index (BMI) 41.0 Physical Exam Const alert, oriented x3 and no apparent distress General Appearance: cooperative HEENT normocephalic, head/scalp atraumatic, hearing grossly normal bilaterally and moist oral mucous membranes Mouth: oral and palatal mucosa normal Eyes PERRL, EOMs intact bilaterally and conjunctivae normal Neck no lymphadenopathy and supple Resp normal respiratory effort, no retractions and no use of accessory muscles Cardio regular rate, regular rhythm, S1 normal heart sound, S2 normal heart sound and no murmurs GI normal to inspection, nondistended, normoactive bowel sounds, soft to palpation, non-tender and non-distended Extremity normal to inspection, full ROM and no clubbing, cyanosis or edema Neuro oriented x3, CN's II-XII intact bilaterally, moves all extremities and no focal motor deficits Sensorium / Orientation: awake and alert Motor Exam: strength 5/5 throughout Psych affect normal Results Lab / Micro Data Result Diagrams: 09/07/22 03:51 09/07/22 03:51 Labs: Laboratory Results - last 24 hr 09/07/22 03:51: WBC 17.7 H, RBC 4.56 L, Hgb 14.7, Hct 44.0, MCV 96.5 H, MCH 32.2 H, MCHC 33.4, RDW Std Deviation 45.6 H, RDW Coeff of Becki 12.9, Plt Count 324, MPV 10.1, Immature Gran % (Auto) 2.700 H, Neut % (Auto) 78.5 H, Lymph % (Auto) 10.9 L, Dickinson % (Auto) 6.4, Eos % (Auto) 0.6, Baso % (Auto) 0.9, Absolute Neuts (auto) 13.9 H, Absolute Lymphs (auto) 1.92, Nucleated RBC % 0 09/07/22 03:51: Sodium 138, Potassium 4.4, Chloride 107, Carbon Dioxide 24.0, Anion Gap 7, BUN 42 H, Creatinine 1.15, Estim Creat Clear Calc 61.48, Est GFR (MDRD) Af Amer 81, Est GFR (MDRD) Non-Af 67, BUN/Creatinine Ratio 36.5 H, Glucose 151 H, Calcium 8.9, Troponin I High Sens 8 09/07/22 03:51: PT 29.8 H, INR 2.9 09/07/22 04:24: Blood Type B POSITIVE, Antibody Screen TNP 09/07/22 04:24: Antibody Screen NEGATIVE 09/07/22 05:35: Troponin I High Sens 10 Radiology Impression Chest X-Ray 09/07/22 03:43 IMPRESSION: 1. Aortic valve prosthesis. 2. Chronic elevation of the left hemidiaphragm. 3. No evidence for acute cardiopulmonary pathology. Electronically Signed: David Hammond MD at 5:15 EST , Chest/Abdomen/Pelvis CTA 09/07/22 04:13 IMPRESSION: 1. Ectatic ascending thoracic aorta with diameter 4.3 cm. Finding is stable. No evidence for thoracic or abdominal aortic aneurysm. Aortic valve prosthesis in place. 2. No evidence for pulmonary embolism or aortic dissection. 3. No evidence for stenosis of abdominal or pelvic arteries. 4. No visible evidence for active GI bleed. 5. Chronic elevation of the left hemidiaphragm. No evidence for acute cardiopulmonary pathology. 6. Colonic diverticulosis without evidence for acute diverticulitis. 7. Enlarged prostate. 8. 1.4 cm left adrenal adenoma and 1.2 cm right adrenal adenoma, stable in appearance. No follow-up imaging is necessary. Consider biochemical assays to determine functional status and exclude pheochromocytoma if biopsy/resection is planned. Electronically Signed: David Hammond MD at 6:38 EST Reading Location ID and State: [facility] / [place] , Service support , Assessment & Plan Assessment/Plan (1) Chest pain: (2) Rectal bleeding: PLAN: Plan #Chest pain to rule out ACS * Admit to PCU with telemetry. * EKG showed no acute ST changes. * Initial troponins were also negative. * He has never had any cardiac issues but he is obese and does have a family history of heart disease. * Will order exercise nuclear stress test. * Sublingual nitroglycerin as needed * P O aspirin 81 mg daily. 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 * Lower GI bleed * Patient complains of rectal bleeding which occurred today to when he was having the chest pain. * He has not had rectal bleeding like this in the past. CT of the abdomen and pelvis showed evidence of diverticulosis without evidence of diverticulitis. * Keep NPO. GI consulted. * Hydrate gently with IV fluids. * On IV pantoprazole 40 mg twice daily. * #Bilateral adrenal adenomas * CT of the abdomen and pelvis showed 1.4 cm left adrenal adenoma and 1.2 cm right adrenal adenoma which were both stable in appearance. * To follow-up with endocrinology on outpatient basis for further work-up as needed. * #Leukocytosis: * WBC is 17. No clear evidence of infection. * May be reactive. We will monitor and see. #History of mechanical aortic valve replacement o/a of bicuspid aortic valve * This was done in June 2004. On Coumadin. INR is therapeutic. Hold Coumadin in light of rectal bleeding. * Monitor INR. * #Hypertension: On metoprolol and spironolactone as well as ramipril. IV hydralazine as needed. DVT prophylaxis: SCDs. No anticoagulation on account of rectal bleeding CODE STATUS: Full code * Patient counseled extensively about different types of CODE STATUS including full code, DNR CCA and DNR CCA. Patient elects to be full code. * Total [id number] time 17 minutes. Total time spent seeing patient, gathering history and examining patient, reviewing chart, discussion of plan with patient, and son as well as documentation: 55 minutes. Charges/Coding Visit Charges Inpatient E&M: 70772 Init Hosp L3 Procedures Hospitalists Procedures: 53789 Advncd Care Plan 30 Min
[2022-09-07 10:13] LABS: Troponin-I HS 8 pg/mL (3.0-78.0)
--- NOTE | 2022-09-07 11:27 | STRESSREP ---
Stress Test Report Exercise myocardial perfusion stress test. 67-year-old man with a history of chest pain and negative troponins Stress protocol: Resting EKG demonstrates normal sinus rhythm with a rate of 92 bpm resting blood pressure is 122/88 mmHg. The patient exercised according to the regular Stephen protocol for a total duration of 3 minutes attaining a maximum heart rate of 144 bpm which was 94% of maximum predicted heart rate; the maximum workload was 4.6 metabolic equivalents. At rest there were no ST or T wave changes noted to suggest ischemia and at peak exercise upsloping ST changes only were noted which did not meet the criteria for ischemia. Frequent premature ventricular complexes were noted. No clinical angina was noted the test was terminated due to the target heart rate being achieved/fatigue. The peak blood pressure was 210/94 mmHg. Rate-pressure product was 29,800. Myocardial perfusion protocol. 14 mCi of technetium 99m sestamibi was injected at rest. The patient exercised according to regular Stephen protocol for total duration of 3 minutes and at peak exercise 44.7 mCi of technetium 99m sestamibi was injected stress images were obtained stress and rest images were reconstructed in comparing the short axis vertical long and horizontal long axis. Gated images were also obtained. Perfusion SPECT analysis: Review of the stress images demonstrate normal uptake of tracer noted in all areas of the myocardium. The resting images similarly demonstrate normal uptake of tracer noted in all areas of the myocardium. No areas of reversibility are noted to suggest ischemia no previous infarct was noted. Gated SPECT analysis: The gated ejection fraction is 62%. Conclusion: Normal exercise myocardial perfusion stress test at a low workload Preserved ejection fraction.
[2022-09-07] MEDS: 0.9% Normal Saline 1,000 ML 125 ML IV ×2 (11:34→19:07)
[2022-09-07] MEDS: Metoprolol(XL)Succ 50 MG Tablet PO (11:34)
[2022-09-07] MEDS: 0.9% Saline Lock 10 ML Syringe IV (11:34)
[2022-09-07] MEDS: Ipratropium/Albuterol Sulfate 3 ML AMPUL.NEB INHALATION ×2 (14:07→20:38)
--- NOTE | 2022-09-07 15:16 | CHAPLAIN ---
Type of Pastoral Visit _x__ Initial Visit ___ Follow-up Visit ___ On-call Visit ___ General Patient Visit ___ Spiritual Assessment ___ Family Conference ___ Bereavement ___ Rapid Response ___ Code Blue ___ Other (describe below) Pastoral Care Referral From _x_ Patient ___ Family ___ Nurse ___ Physician ___ Resist Coater Developer ___ Drywall Sprayer ___ Other (describe below) Sacrament/Intervention _x__ Active listening ___ Anointing ___ Yazdanism ___ Bereavement ___ Communion _x__ Julisa exploration ___ ___ Life review _x__ Prayer ___ Reconciliation ___ Sacrament of Sick _x__ Supportive presence ___ Wedding ___ Other (describe below) Pastoral Comments patient has had some recent health issues and is getting some tests done; pt is concerned for spouse being without him at home, who is also in the room at this time; spouse has a mother with dementia that needs attention; their daughter is out of state and worried about all of them; pt has recently left his former [employer] and is disappointed about this situation; pt asks for prayer and all these concerns addressed with listening, support, and prayer
--- NOTE | 2022-09-07 17:58 | CON.PCM.GI_ITS ---
HPI Consult Data Date of Consult: 09/07/22 HPI Narrative Reason for Consultation: Lower GI bleed HPI Narrative: ABDIAS ROMO, is a 67 M who presents with chest pain and lower GI bleed.? He states it felt like pressure.? It started about 2 AM when he was having a bowel movement.? He states he felt lightheaded and sweaty.? Patient states he also noted blood in his stool over the last day.? He states that makes a dark stool and red stool.? His states that he had blood in the toilet this morning when he had a bowel movement.? He initially went to lay down and his brought him a Sprite and he started having symptoms again.? Patient does have history of hypertension, hyperlipidemia, thoracic aortic aneurysm, and an artificial heart valve.? He is on Coumadin for this.? Recently had carpal tunnel surgery repair and was off his Coumadin.? He had to be on Lovenox to bridge back to Coumadin.? He is currently only on Coumadin.? Patient states aside from the chest pain and the blood in stool he feels generally weak.? He states especially feels weak in his legs. Cardiac enzymes x3 were normal. He had a stress test today did not show any signs of cardiac ischemia and his ejection fraction was calculated 62%. He has never had a colonoscopy in the past. [facility] Medical History Aortic aneurysm, thoracic Aortic valve disease Aortic valve, bicuspid Atherosclerosis of [place] coronary artery of [place] heart without angina pectoris Breathing-related sleep disorder Carotid bruit COPD (chronic obstructive pulmonary disease) Essential hypertension GERD (gastroesophageal reflux disease) Hypokalemia Lung nodule Mixed hyperlipidemia Obesity JO ANN (obstructive sleep apnea) Snoring Thoracic aortic aneurysm without rupture Home Medications aspirin 81 mg tablet,delayed release (Ecotrin Low Strength) 81 mg PO QDAY anticoagulant 08/05/17 [History Last Taken 09/06/22] albuterol sulfate 90 mcg/actuation aerosol inhaler (Proventil HFA) 2 puff inhalation Q4H PRN shortness of breath or wheezing #6.7 grams 11/13/21 [Rx Last Taken Unknown] warfarin 1 mg tablet 2 mg PO .COMPLEX #180 tabs 06/05/22 [Rx Last Taken 09/06/22] warfarin 3 mg tablet 3 mg PO DAILY #90 tabs 06/05/22 [Rx Last Taken 09/04/22] warfarin 5 mg tablet 5 mg PO QDAY #90 tabs 06/05/22 [Rx Last Taken 09/06/22] budesonide 160 mcg-glycopyr 9 mcg-formot 4.8 mcg/actuation HFA inhaler (Breztri Aerosphere) 2 inh inhalation BID copd 09/07/22 [History Last Taken 09/06/22] cetirizine 10 mg capsule 10 mg PO HS allergy 09/07/22 [History Last Taken 09/06/22] metoprolol succinate 50 mg tablet,extended release 24 hr 50 mg PO QDAY b/p 09/07/22 [History Last Taken 09/06/22] montelukast 10 mg tablet 10 mg PO QPM allergies 09/07/22 [History Last Taken 09/06/22] potassium chloride 20 mEq tablet,extended release(part/cryst) (Klor-Con M) 20 meq PO QDAY k replacement 09/07/22 [History Last Taken 09/06/22] ramipril 10 mg capsule 10 mg PO QDAY b/p 09/07/22 [History Last Taken 09/06/22] spironolactone 50 mg tablet (Aldactone) 50 mg PO QDAY diuretic 09/07/22 [History Last Taken 09/06/22] Allergy/AdvReac Type Severity Reaction Status Date / Time Penicillins Allergy Unknown Verified 06/05/22 09:44 Family History Father , age 60 Myocardial infarction Hypertension Mother CAD (coronary artery disease) Hypertension HLD (hyperlipidemia) Brother Hypertension Sister Cancer Bone Cancer Surgical History H/O aortic valve replacement History of carpal tunnel surgery of left wrist History of left heart catheterization (LHC) History of mechanical aortic valve replacement (~06/2004) History of right and left heart catheterization Social History Smoking Status: Never smoker alcohol intake: current alcohol intake frequency: holidays/special occasions only Alcohol type: beer and wine substance use type: does not use caffeine: Yes Type: coffee Number of servings: 3 what type of physical activity do you participate in: none seatbelt use: always do you feel safe at home: Yes ROS Constitutional Constitutional: Denies anorexia, chills, fatigue, fever(s), malaise or weakness Eyes Eyes: Denies change in vision ENT HEENT: Denies dysphagia, nasal congestion, nasal discharge or sore throat Cardiovascular Cardiovascular: Reports chest pain; Denies dyspnea on exertion, edema, lightheadedness, orthopnea, palpitations, paroxysmal nocturnal dyspnea, rapid heart rate or syncope Respiratory/Chest Respiratory/Chest: Denies cough, dyspnea, shortness of breath at rest or alize rtness of breath with exertion Gastrointestinal Gastrointestinal: Denies abdominal pain, constipation, diarrhea, nausea or vomiting Genitourinary Genitourinary: Denies burning urination or dysuria Musculoskeletal Musculoskeletal: Denies arthralgias Neurologic Neurologic: Denies confusion, dizziness, focal weakness, headache(s), numbness, seizures or syncope Psychiatric Psychiatric: Denies anxiety Endocrine Endocrinology: Denies change in body appearance Hematologic/Lymphatic Hematologic/Lymphatic: Denies anemia Physical Exam Const alert, oriented x3 and no apparent distress General Appearance: cooperative HEENT normocephalic, head/scalp atraumatic, hearing grossly normal bilaterally and moist oral mucous membranes Mouth: oral and palatal mucosa normal Eyes PERRL, EOMs intact bilaterally and conjunctivae normal Neck no lymphadenopathy and supple Resp normal respiratory effort, no retractions and no use of accessory muscles Cardio regular rate, regular rhythm, S1 normal heart sound, S2 normal heart sound and no murmurs GI normal to inspection, nondistended, normoactive bowel sounds, soft to palpation, non-tender and non-distended Extremity normal to inspection, full ROM and no clubbing, cyanosis or edema Neuro oriented x3, CN's II-XII intact bilaterally, moves all extremities and no focal motor deficits Sensorium / Orientation: awake and alert Motor Exam: strength 5/5 throughout Psych affect normal Lab / Micro Data Result Diagrams: 09/07/22 03:51 09/07/22 03:51 Labs: Laboratory Results - last 24 hr 09/07/22 03:51: WBC 17.7 H, RBC 4.56 L, Hgb 14.7, Hct 44.0, MCV 96.5 H, MCH 32.2 H, MCHC 33.4, RDW Std Deviation 45.6 H, RDW Coeff of Becki 12.9, Plt Count 324, MPV 10.1, Immature Gran % (Auto) 2.700 H, Neut % (Auto) 78.5 H, Lymph % (Auto) 10.9 L, [place] % (Auto) 6.4, Eos % (Auto) 0.6, Baso % (Auto) 0.9, Absolute Neuts (auto) 13.9 H, Absolute Lymphs (auto) 1.92, Nucleated RBC % 0 09/07/22 03:51: Sodium 138, Potassium 4.4, Chloride 107, Carbon Dioxide 24.0, Anion Gap 7, BUN 42 H, Creatinine 1.15, Estim Creat Clear Calc 61.48, Est GFR (MDRD) Af Amer 81, Est GFR (MDRD) Non-Af 67, BUN/Creatinine Ratio 36.5 H, Gluco se 151 H, Calcium 8.9, Troponin I High Sens 8 09/07/22 03:51: PT 29.8 H, INR 2.9 09/07/22 04:24: Blood Type B POSITIVE, Antibody Screen TNP 09/07/22 04:24: Antibody Screen NEGATIVE 09/07/22 05:35: Troponin I High Sens 10 09/07/22 09:42: Troponin I High Sens 8 Radiology Impression Chest X-Ray 09/07/22 03:43 IMPRESSION: 1. Aortic valve prosthesis. 2. Chronic elevation of the left hemidiaphragm. 3. No evidence for acute cardiopulmonary pathology. Electronically Signed: David Hammond MD at 5:15 EST Reading Location ID and State: [facility] / [place] , Service support , Chest/Abdomen/Pelvis CTA 09/07/22 04:13 IMPRESSION: 1. Ectatic ascending thoracic aorta with diameter 4.3 cm. Finding is stable. No evidence for thoracic or abdominal aortic aneurysm. Aortic valve prosthesis in place. 2. No evidence for pulmonary embolism or aortic dissection. 3. No evidence for stenosis of abdominal or pelvic arteries. 4. No visible evidence for active GI bleed. 5. Chronic elevation of the left hemidiaphragm. No evidence for acute cardiopulmonary pathology. 6. Colonic diverticulosis without evidence for acute diverticulitis. 7. Enlarged prostate. 8. 1.4 cm left adrenal adenoma and 1.2 cm right adrenal adenoma, stable in appearance. No follow-up imaging is necessary. Consider biochemical assays to determine functional status and exclude pheochromocytoma if biopsy/resection is planned. Electronically Signed: David Hammond MD at 6:38 EST Reading Location ID and State: [facility] / [place] , Service support , Assessment & Plan Assessment/Plan (1) Chest pain: PLAN: Cardiac work-up thus far has been negative. He is status post aortic valve replacement with a metal valve. INR is 2.9. Recommend to continue Coumadin at current dose. (2) Rectal bleeding: PLAN: Differential diagnosis for his rectal bleeding does include ischemic colitis, diverticular bleed, upper GI bleed with rapid transit. He will undergo an upper lower endoscopy tomorrow. He was explained alternatives, risk, benefits include not withstanding bleeding, infection, sepsis, perforation, need for emergent . He will have an ASA of 3. Charges/Coding Visit Charges Inpatient E&M: 74754 Init Hosp L3
[2022-09-07] MEDS: Polyethylene Glycol 3350 BOWEL PREP PO (19:08)
[2022-09-07] MEDS: Budesonide Respules 0.5 MG/2 ML AMPUL.NEB. INHALATION (20:39)
[2022-09-07] MEDS: Montelukast 10 MG Tablet PO (20:53)
[2022-09-08] VITALS (8 sets, daily range): BP systolic 111–119; BP diastolic 55–81; PULSE 79–96; RESP 16–18; TEMP 36.5–36.8; O2SAT 90–95; BMI 41.1
[2022-09-08] MEDS: Bisacodyl 5 MG Tablet 20 MG PO (00:07)
[2022-09-08 06:19] LABS: Absolute Lymphocyte Count 1.81 X10^3/uL (0.83-4.51); Absolute Neutrophil Count 9.1 X10^3/uL (2.0-7.7); Basophil# 0.09 X10^3/uL; Basophil% 0.7 % (0-1); Eosinophil# 0.11 X10^3/uL; Eosinophils% 0.9 % (0-5); Hematocrit 37.1 % (40-54); Hemoglobin 12.6 g/dL (13.0-16.5); Lymphocyte # 1.81 X10^3/ul (0.83-4.51); Lymphocyte % 14.4 % (19-41); Mean Corpuscular Hgb 32.2 pg (27.0-32.0); Mean Corpuscular Volume 94.9 fL (80-94); Mean Platelet Vol. 10.2 fl (6.2-12.0); Monocyte# 1.08 X10^3/uL; Monocyte% 8.6 % (0-10); NRBC Flagged by Analyzer 0 % (0-5); Neutrophil # 9.14 X10^3/uL (2.7-7.7); Neutrophil % 72.8 % (47-70); Platelet Count 248 K/mm3 (150-450); RBC Distribution Width CV 13.2 % (11.6-14.6); RBC Distribution Width SD 45.1 fl (35.1-43.9); Red Blood Count 3.91 M/mm3 (4.6-6.2); White Blood Count 12.6 K/mm3 (4.4-11.0)
[2022-09-08] MEDS: Lactated Ringers 1,000 ML 15 ML IV (06:41)
[2022-09-08 06:49] LABS: Anion Gap 6 (5-15); BUN 26 mg/dL (7-18); BUN/Creat Ratio 28.8 RATIO (10-20); Calcium,Total 8.3 mg/dL (8.5-10.1); Chloride 110 mmol/L (98-107); EST Glomerular Filtration Rate 89 mL/min (>60); Est Glom Filt Rate - Afr Amer 107 mL/min (>60); Estimated Creatinine Clearance 78.56 ml/min; Glucose 115 mg/dL (74-106); Potassium 3.7 mmol/L (3.5-5.1); Sodium Level 139 mmol/L (136-145)
--- NOTE | 2022-09-08 08:25 | OP.EGD_ITS ---
Patient Name: Mk Sorensen Procedure Date: 09/08/2022 7:39 AM Date of : 1955 Age: 67 Procedure: Upper GI endoscopy Indications: Hematochezia Providers: Moy Mcgovern DO Medicines: Monitored Anesthesia Care Patient Profile: This is a 67 year old male. Refer to note in patient chart for documentation of history and physical. Patient has symptoms. Complications: No immediate complications. Procedure: Pre-Anesthesia Assessment: - Prior to the procedure, a History and Physical was performed, and patient medications and allergies were reviewed. The patient is competent. The risks and benefits of the procedure and the sedation options and risks were discussed with the patient. All questions were answered and informed consent was obtained. Patient identification and proposed procedure were verified by the physician in the pre-procedure area. Mental Status Examination: alert and oriented. Airway Examination: normal oropharyngeal airway and neck mobility. Respiratory Examination: clear to auscultation. CV Examination: normal. Prophylactic Antibiotics: The patient does not require prophylactic antibiotics. Prior Anticoagulants: The patient has taken no previous anticoagulant or antiplatelet agents. ASA Grade Assessment: II - A patient with mild systemic disease. After reviewing the risks and benefits, the patient was deemed in satisfactory condition to undergo the procedure. The anesthesia plan was to use monitored anesthesia care (MAC). Immediately prior to administration of medications, the patient was re-assessed for adequacy to receive sedatives. The heart rate, respiratory rate, oxygen saturations, blood pressure, adequacy of pulmonary ventilation, and response to care were monitored throughout the procedure. The physical status of the patient was re-assessed after the procedure. After obtaining informed consent, the endoscope was passed under direct vision. Throughout the procedure, the patient's blood pressure, pulse, and oxygen saturations were monitored continuously. The colonoscope was introduced through the mouth, and advanced to the second part of duodenum. The upper GI endoscopy was accomplished without difficulty. The patient tolerated the procedure well. Scope In: 7:51:04 AM Scope Out: 7:53:36 AM Total Procedure Duration Time 0 hours 2 minutes 32 seconds Findings: LA Grade A (one or more mucosal breaks less than 5 mm, not extending between tops of 2 mucosal folds) esophagitis with no bleeding was found 34 to 35 cm from the incisors. A small hiatal hernia was present. No other significant abnormalities were identified in a careful examination of the stomach. The second portion of the duodenum was normal. Impression: - LA Grade A reflux esophagitis. - Small hiatal hernia. - Normal second portion of the duodenum. - No specimens collected. Recommendation: - Return patient to [facility] for ongoing care. - Resume regular diet. - Continue present medications. Procedure Code(s): --- Professional --- 03269, Esophagogastroduodenoscopy, flexible, transoral; diagnostic, including collection of specimen(s) by brushing or washing, when performed (separate procedure) CPT copyright 2017 [employer]. All rights reserved. The codes documented in this report are preliminary and upon napkin machine operator review may be revised to meet current compliance requirements. Moy Mcgovern DO 09/08/2022 8:24:55 AM This report has been signed electronically. Number of Addenda: 0 Note Initiated On: 09/08/2022 7:39 AM
--- NOTE | 2022-09-08 08:26 | OP.CCLET_ITS ---
09/08/2022 Sindhu Bird [place] [id number] [address] Re : Upper GI endoscopy procedure for Mk Sorensen Dear Dr. Bird This procedure was performed on Thursday, September 08, 2022. My impressions and recommendations are as follows: Impressions : - LA Grade A reflux esophagitis. - Small hiatal hernia. - Normal second portion of the duodenum. - No specimens collected. Recommendations : - Return patient to [facility] for ongoing care. - Resume regular diet. - Continue present medications. My findings are described in the full procedure note, which is enclosed. If I can be of further assistance, please feel free to contact me at . Sincerely, Moy Mcgovern, 09/08/2022 8:24:55 AM This report has been signed electronically.
--- NOTE | 2022-09-08 08:28 | OP.COLON_ITS ---
Patient Name: Mk Sorensen Procedure Date: 09/08/2022 7:53 AM Date of : 1955 Age: 67 Procedure: Colonoscopy Indications: Hematochezia Providers: Moy Mcgovern DO Medicines: Monitored Anesthesia Care Patient Profile: This is a 67 year old male. Refer to note in patient chart for documentation of history and physical. Patient has symptoms. Last Colonoscopy: none. The patient's first colonoscopy is today. Complications: No immediate complications. Procedure: Pre-Anesthesia Assessment: - Prior to the procedure, a History and Physical was performed, and patient medications and allergies were reviewed. The patient is competent. The risks and benefits of the procedure and the sedation options and risks were discussed with the patient. All questions were answered and informed consent was obtained. Patient identification and proposed procedure were verified by the physician in the pre-procedure area. Mental Status Examination: alert and oriented. Airway Examination: normal oropharyngeal airway and neck mobility. Respiratory Examination: clear to auscultation. CV Examination: normal. Prophylactic Antibiotics: The patient does not require prophylactic antibiotics. Prior Anticoagulants: The patient has taken no previous anticoagulant or antiplatelet agents. ASA Grade Assessment: II - A patient with mild systemic disease. After reviewing the risks and benefits, the patient was deemed in satisfactory condition to undergo the procedure. The anesthesia plan was to use monitored anesthesia care (MAC). Immediately prior to administration of medications, the patient was re-assessed for adequacy to receive sedatives. The heart rate, respiratory rate, oxygen saturations, blood pressure, adequacy of pulmonary ventilation, and response to care were monitored throughout the procedure. The physical status of the patient was re-assessed after the procedure. After I obtained informed consent, the scope was passed under direct vision. Throughout the procedure, the patient's blood pressure, pulse, and oxygen saturations were monitored continuously. The colonoscope was introduced through the anus and advanced to the terminal ileum. The colonoscopy was performed without difficulty. The patient tolerated the procedure well. The quality of the bowel preparation was adequate. Scope In: 7:57:00 AM Scope Withdrawal Time 0 hours 12 minutes 30 seconds Scope Out: 8:21:50 AM Total Procedure Duration Time 0 hours 24 minutes 50 seconds Findings: The perianal and digital rectal examinations were normal. The colon (entire examined portion) appeared normal. The terminal ileum appeared normal. Non-bleeding internal hemorrhoids were found during retroflexion. The hemorrhoids were mild and Grade I (internal hemorrhoids that do not prolapse). Impression: - The entire examined colon is normal. - The examined portion of the ileum was normal. - Non-bleeding internal hemorrhoids. - No specimens collected. Recommendation: - Repeat colonoscopy in 10 years for screening purposes. - Continue present medications. Procedure Code(s): --- Professional --- 94612, Colonoscopy, flexible; diagnostic, including collection of specimen(s) by brushing or washing, when performed (separate procedure) CPT copyright 2017 [employer]. All rights reserved. The codes documented in this report are preliminary and upon inpatient coder review may be revised to meet current compliance requirements. Moy Mcgovern DO 09/08/2022 8:28:11 AM This report has been signed electronically. Number of Addenda: 0 Note Initiated On: 09/08/2022 7:53 AM
--- NOTE | 2022-09-08 08:29 | OP.CCLET_ITS ---
09/08/2022 Sindhu Bird [place] [id number] [address] Re : Colonoscopy procedure for Mk Sorensen Dear Dr. Bird This procedure was performed on Thursday, September 08, 2022. My impressions and recommendations are as follows: Impressions : - The entire examined colon is normal. - The examined portion of the ileum was normal. - Non-bleeding internal hemorrhoids. - No specimens collected. Recommendations : - Repeat colonoscopy in 10 years for screening purposes. - Continue present medications. My findings are described in the full procedure note, which is enclosed. If I can be of further assistance, please feel free to contact me at . Sincerely, Moy Mcgovern, 09/08/2022 8:28:11 AM This report has been signed electronically.
[2022-09-08] MEDS: Metoprolol(XL)Succ 50 MG Tablet PO (10:25)
--- NOTE | 2022-09-08 11:01 | DS.PCM_ITS ---
Providers Date of Admission: 09/07/22 Date of Discharge: 09/08/22 Primary Care Physician: Dr. Sindhu Bird MD Consultations 09/07/22 08:11 Consult: Gastroenterology Routine Consulting Provider: [facility] Reason for Consult: lower GI bleed EMERGENT Consult: No MD Notified: Yes Date Notified: 09/07/22 Time Notified: 07:38 Method of Notification: Text Reason For Visit: CHEST PAIN, GI BLEED Diagnosis Discharge Diagnosis (1) Chest pain: Status: Acute Code(s): R07.9 - Chest pain, unspecified (2) Rectal bleeding: Status: Acute Code(s): K62.5 - Hemorrhage of anus and rectum Plan #Chest pain to rule out ACS * Admit to PCU with telemetry. * EKG showed no acute ST changes. * Initial troponins were also negative. * He has never had any cardiac issues but he is obese and does have a family history of heart disease. * Will order exercise nuclear stress test. * Sublingual nitroglycerin as needed * P O aspirin 81 mg daily. 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 * Lower GI bleed * Patient complains of rectal bleeding which occurred today to when he was having the chest pain. * He has not had rectal bleeding like this in the past. CT of the abdomen and pelvis showed evidence of diverticulosis without evidence of diverticulitis. * Keep NPO. GI consulted. * Hydrate gently with IV fluids. * On IV pantoprazole 40 mg twice daily. * #Bilateral adrenal adenomas * CT of the abdomen and pelvis showed 1.4 cm left adrenal adenoma and 1.2 cm right adrenal adenoma which were both stable in appearance. * To follow-up with endocrinology on outpatient basis for further work-up as needed. * #Leukocytosis: * WBC is 17. No clear evidence of infection. * May be reactive. We will monitor and see. #History of mechanical aortic valve replacement o/a of bicuspid aortic valve * This was done in June 2004. On Coumadin. INR is therapeutic. Hold Coumadin in light of rectal bleeding. * Monitor INR. * #Hypertension: On metoprolol and spironolactone as well as ramipril. IV hydralazine as needed. DVT prophylaxis: SCDs. No anticoagulation on account of rectal bleeding CODE STATUS: Full code * Patient counseled extensively about different types of CODE STATUS including full code, DNR CCA and DNR CCA. Patient elects to be full code. * Total unoc-kn-nogs time 17 minutes. Total time spent seeing patient, gathering history and examining patient, reviewing chart, discussion of plan with patient, and son as well as documentation: 55 minutes. Medications at Discharge Home Medications aspirin 81 mg tablet,delayed release (Ecotrin Low Strength) 81 mg PO QDAY heart health 08/05/17 albuterol sulfate 90 mcg/actuation aerosol inhaler (Proventil HFA) 2 puff inhalation Q4H PRN shortness of breath or wheezing #6.7 grams 11/13/21 warfarin 1 mg tablet 2 mg PO .COMPLEX #180 tabs 06/05/22 warfarin 3 mg tablet 3 mg PO DAILY #90 tabs 06/05/22 warfarin 5 mg tablet 5 mg PO QDAY #90 tabs 06/05/22 budesonide 160 mcg-glycopyr 9 mcg-formot 4.8 mcg/actuation HFA inhaler (Breztri Aerosphere) 2 inh inhalation BID copd 09/07/22 cetirizine 10 mg capsule 10 mg PO HS allergy 09/07/22 metoprolol succinate 50 mg tablet,extended release 24 hr 50 mg PO QDAY b/p 09/07/22 montelukast 10 mg tablet 10 mg PO QPM allergies 09/07/22 potassium chloride 20 mEq tablet,extended release(part/cryst) (Klor-Con M) 20 meq PO QDAY k replacement 09/07/22 ramipril 10 mg capsule 10 mg PO QDAY b/p 09/07/22 spironolactone 50 mg tablet (Aldactone) 50 mg PO QDAY diuretic 09/07/22 Hospital Course Operations None Procedures Colonoscopy, EGD and Stress test Summary of Care Provided Minutes Spent on Discharge: 45 Hospital Course: ABDIAS ROMO, is a 67 M with a PMH as outlined who presents via the ED on 09/07/2022 with a complaint of chest pain, which was pressure like. He said it started when he was having a bowel movement. He denied chest pain radiating to his left arm, or any associted palpitations. HE did feel dizzy and lightheaded and also complained of sweating. Of note, he also said he was having bright red bleeding per rectum when he had a bowel movement, and siad he had also noted dark stools. He denied any fever, chills, nausea, vomiting or diarrhea. He is on coumadin for a mechanical valve, and says he recently had carpal tunnel surgery for which he held his coumadin, and was subsequently placed on both coumadin and bridging with lovenox. Review of systems was otherwise negative. Vitals were temp of 97.8F, [place] of 89, RR of 17 and he was saturating at 95% on room air. CBC showed hb of 14.7, with wbc of 17.7 and platelets of 324. INR was 2.9 and chemistry was remarkable for BUN of 42. Troponins x [address] abdomen and pelvis showed ectatic ascending thoracic aorta with diameter of 4.3cm, as well as enlarged protate and colonic diverticulosis with no evidence of acute diverticulitis and stable bilateral adrenal adenomas. EKG showed no acute ST changes. He was admitted to be managed for lower GI bleed and chest pain to rule out ACS. He had a stress test which was negative for any evidence of ischemia. He had EGD which showed grade a reflux esophagitis and small hiatal hernia and normal second portion of the duodenum. Colonoscopy was normal. Patient remained stable and is hemoglobin remained stable. He was discharged on 09/08/2022. He is to continue with his Coumadin and is to follow-up with his primary care doctor for follow-up INR checks to make sure that the INR is within therapeutic limits. Patient seen and examined prior to discharge. He complained of some numbness in his right hand. He had recently had carpal tunnel surgery at the [facility] on his right hand. Patient and were concerned that he had no blood flow to his fingers. Patient did have a good pulse and his fingers were warm to touch and blanchable. Patient counseled that there was no evidence of diminished blood flow to his fingers. He had been due to follow-up at [facility] on 09/08/2022, the day of discharge. Patient counseled that he should call the [facility] to tell them he has been discharged from the hospital to see if they could see him today to evaluate this numbness of his little and ring finger on his right hand also could be related to the surgery. Labs and vitals reviewed. Home medication reviewed and reconciled. Physical Exam Const alert, oriented x3 and no apparent distress General Appearance: cooperative and comfortable Orientation / Consciousness: awake Exam Limitations: no limitations HEENT normocephalic, head/scalp atraumatic, hearing grossly normal bilaterally and moist oral mucous membranes Mouth: oral and palatal mucosa normal Eyes PERRL, EOMs intact bilaterally and conjunctivae normal Neck no lymphadenopathy and supple Resp normal respiratory effort, no retractions and no use of accessory muscles Cardio regular rate, regular rhythm, S1 normal heart sound, S2 normal heart sound and no murmurs GI normal to inspection, nondistended, normoactive bowel sounds, soft to palpation, non-tender and non-distended Extremity normal to inspection Extremity Narrative: right hand minimally swollen, good distal pulses, well healing surgical scar from carpal tunnel surgery Skin Skin Narrative: as under extremity Neuro oriented x3, CN's II-XII intact bilaterally, moves all extremities and no focal motor deficits Sensorium / Orientation: awake and alert Motor Exam: strength 5/5 throughout Psych affect normal Weight / BMI Weight Weight: 278 lb 7.101 oz Body Mass Index (BMI) 41.1 ABG / Lab / Microbiology Data Result Diagrams: 09/08/22 06:00 09/08/22 06:00 Laboratory: Laboratory Results - last 24 hr 09/08/22 06:00: WBC 12.6 H, RBC 3.91 L, Hgb 12.6 L, Hct 37.1 L, MCV 94.9 H, MCH 32.2 H, MCHC 34.0, RDW Std Deviation 45.1 H, RDW Coeff of Becki 13.2, Plt Count 248, MPV 10.2, Immature Gran % (Auto) 2.600 H, Neut % (Auto) 72.8 H, Lymph % (Auto) 14.4 L, [place] % (Auto) 8.6, Eos % (Auto) 0.9, Baso % (Auto) 0.7, Absolute Neuts (auto) 9.1 H, Absolute Lymphs (auto) 1.81, Nucleated RBC % 0 09/08/22 06:00: Sodium 139, Potassium 3.7, Chloride 110 H, Carbon Dioxide 23.0, Anion Gap 6, BUN 26 H, Creatinine 0.90, Estim Creat Clear Calc 78.56, Est GFR (MDRD) Af Amer 107, Est GFR (MDRD) Non-Af 89, BUN/Creatinine Ratio 28.8 H, Glucose 115 H, Calcium 8.3 L 09/08/22 06:00: PT 31.0 H, INR 3.0 D/C Instructions Discharge Diet: Low fat / Low cholesterol Weight Bearing Status: Weight bearing as tolerated Call your doctor if you observe: Fever of 101 or Higher, Shortness of breath, Dizziness, Swelling in the ankles, Chest pain, Increased palpitations (irregular heartbeat) and - (rectal bleeding) Meaningful Use Info Meaningful Use Diagnoses (Choose all that apply): None applicable Discharge Plan Admission Admit Date/Time: 09/07/22 07:36 Primary Reason for Your Visit: chest pain, lower GI bleed Attending Provider: Janey Garcia Primary Care Provider: Sindhu Bird Instructions Patient Instructions: ED Chest Pain, Noncardiac Discharge Orders/Prescriptions Prescriptions: Continued aspirin [Ecotrin Low Strength] 81 mg tablet,delayed release (DR/EC) 81 mg PO QDAY warfarin 5 mg tablet 5 mg PO QDAY Qty: 90 3RF Protocol: Dose Management Condition: Wednesday Dose/Route: 5 mg Instruction: 1 x 5 mg tablet Condition: Wednesday Dose/Route: 8 mg Instruction: 1 x 3 mg tablet, 1 x 5 mg tablet Condition: Wednesday Dose/Route: 8 mg Instruction: 1 x 3 mg tablet, 1 x 5 mg tablet Condition: Wednesday Dose/Route: 8 mg Instruction: 1 x 3 mg tablet, 1 x 5 mg tablet Condition: Dose/Route: 5 mg Instruction: 1 x 5 mg tablet Condition: Wednesday Dose/Route: 8 mg Instruction: 1 x 3 mg tablet, 1 x 5 mg tablet Condition: Wednesday Dose/Route: 5 mg Instruction: 1 x 5 mg tablet Protocol Text: Adjustment Start Date: Wednesday09/01/22 INR Value: 2.3 INR Date: 09/01/22 Recheck Date: 09/08/22 Rx Instructions: take 7 mg a day ( 5 mg and two 1 mg) warfarin 1 mg tablet 2 mg PO .COMPLEX Qty: 180 3RF Protocol: Dose Management Condition: Wednesday Dose/Route: 5 mg Instruction: 1 x 5 mg tablet Condition: Wednesday Dose/Route: 8 mg Instruction: 1 x 3 mg tablet, 1 x 5 mg tablet Condition: Wednesday Dose/Route: 8 mg Instruction: 1 x 3 mg tablet, 1 x 5 mg tablet Condition: Wednesday Dose/Route: 8 mg Instruction: 1 x 3 mg tablet, 1 x 5 mg tablet Condition: Dose/Route: 5 mg Instruction: 1 x 5 mg tablet Condition: Wednesday Dose/Route: 8 mg Instruction: 1 x 3 mg tablet, 1 x 5 mg tablet Condition: Wednesday Dose/Route: 5 mg Instruction: 1 x 5 mg tablet Protocol Text: Adjustment Start Date: Wednesday09/01/22 INR Value: 2.3 INR Date: 09/01/22 Recheck Date: 09/08/22 Rx Instructions: 1 mg PO take two tablets with a 5 mg tablet to = 7 mg daily warfarin 3 mg tablet 3 mg PO DAILY Qty: 90 3RF Protocol: Dose Management Condition: Wednesday Dose/Route: 5 mg Instruction: 1 x 5 mg tablet Condition: Wednesday Dose/Route: 8 mg Instruction: 1 x 3 mg tablet, 1 x 5 mg tablet Condition: Wednesday Dose/Route: 8 mg Instruction: 1 x 3 mg tablet, 1 x 5 mg tablet Condition: Wednesday Dose/Route: 8 mg Instruction: 1 x 3 mg tablet, 1 x 5 mg tablet Condition: Dose/Route: 5 mg Instruction: 1 x 5 mg tablet Condition: Wednesday Dose/Route: 8 mg Instruction: 1 x 3 mg tablet, 1 x 5 mg tablet Condition: Wednesday Dose/Route: 5 mg Instruction: 1 x 5 mg tablet Protocol Text: Adjustment Start Date: Wednesday09/01/22 INR Value: 2.3 INR Date: 09/01/22 Recheck Date: 09/08/22 Rx Instructions: Take 1 tab daily in addition to 5 mg tab to = 8 mg daily, or as directed for dose changes. Proventil HFA 90 mcg/actuation HFA aerosol inhaler 2 puff INHALATION Q4H PRN (Reason: shortness of breath or wheezing) Qty: 6.7 6RF metoprolol succinate 50 mg tablet extended release 24 hr 50 mg PO QDAY montelukast 10 mg tablet 10 mg PO QPM cetirizine 10 mg capsule 10 mg PO HS potassium chloride [Klor-Con M20] 20 mEq tablet,ER particles/crystals 20 meq PO QDAY spironolactone [Aldactone] 50 mg tablet 50 mg PO QDAY ramipril 10 mg capsule 10 mg PO QDAY Eric Aerosphere 160-9-4.8 mcg/actuation Hfa Aerosol Inhaler 2 inh INHALATION BID Referrals / Follow Up: Sindhu Bird MD [Primary Care Provider] - Within 2 Weeks Moy Mcgovern DO [Med Staff - Active Staff] - Within 2 Weeks Disposition Disposition (needs filled in before D/C Order can be placed): Home, Self Care Charges/Coding Visit Charges Inpatient E&M: 89926 Disch Hosp >30min
--- NOTE | 2022-09-08 11:05 | PHA.DC.MR ---
Pharmacy Service has performed discharge medication reconciliation for this patient. The patient's discharge medication list was reviewed for discrepancies and discrepancies were resolved. Home Medications aspirin 81 mg tablet,delayed release (Ecotrin Low Strength) 81 mg PO QDAY heart health 08/05/17 albuterol sulfate 90 mcg/actuation aerosol inhaler (Proventil HFA) 2 puff inhalation Q4H PRN shortness of breath or wheezing #6.7 grams 11/13/21 warfarin 1 mg tablet 2 mg PO .COMPLEX #180 tabs 06/05/22 warfarin 3 mg tablet 3 mg PO DAILY #90 tabs 06/05/22 warfarin 5 mg tablet 5 mg PO QDAY #90 tabs 06/05/22 budesonide 160 mcg-glycopyr 9 mcg-formot 4.8 mcg/actuation HFA inhaler (Breztri Aerosphere) 2 inh inhalation BID copd 09/07/22 cetirizine 10 mg capsule 10 mg PO HS allergy 09/07/22 metoprolol succinate 50 mg tablet,extended release 24 hr 50 mg PO QDAY b/p 09/07/22 montelukast 10 mg tablet 10 mg PO QPM allergies 09/07/22 potassium chloride 20 mEq tablet,extended release(part/cryst) (Klor-Con M) 20 meq PO QDAY k replacement 09/07/22 ramipril 10 mg capsule 10 mg PO QDAY b/p 09/07/22 spironolactone 50 mg tablet (Aldactone) 50 mg PO QDAY diuretic 09/07/22
--- NOTE | 2022-09-08 11:29 | CASEMGMT ---
SHAYY CM in to complete LINDSEY form with patient. SHAYY BERRIOS explained LINDSEY form, patient voiced understanding. Patient signed LINDSEY form and filed in chart. Patient provided with copy of signed LINDSEY form. Patient had no further questions or concerns at this time.
== END 2022-09-08 10:59 | disposition home or self-care (01) ==
LOC: ED 04:18 → PCU 07:54
PROVIDERS: Anesthesiology; Internal Medicine Gastroenterology; Admitting Provider Student in an Organized Health Care Education/Training Program; Emergency Provider Student in an Organized Health Care Education/Training Program; PCP Family Medicine; Visit Provider Student in an Organized Health Care Education/Training Program
PROC: 0DJD8ZZ Inspection of Lower Intestinal Tract, Via Natural or Artificial Opening Endoscopic (ICD-10-PCS; CPT 45378; principal; 2022-09-08 07:40)
DX: R07.89 Other chest pain (principal); J44.9 Chronic obstructive pulmonary disease, unspecified; Z68.41 Body mass index [BMI] 40.0-44.9, adult; K64.0 First degree hemorrhoids; Z79.82 Long term (current) use of aspirin; R42 Dizziness and giddiness; Z79.01 Long term (current) use of anticoagulants; K44.9 Diaphragmatic hernia without obstruction or gangrene; I10 Essential (primary) hypertension; K62.5 Hemorrhage of anus and rectum; E78.2 Mixed hyperlipidemia; K21.00 Gastro-esophageal reflux disease with esophagitis, without bleeding; I25.10 Atherosclerotic heart disease of native coronary artery without angina pectoris; Z95.2 Presence of prosthetic heart valve; G47.33 Obstructive sleep apnea (adult) (pediatric); Z79.899 Other long term (current) drug therapy; D35.01 Benign neoplasm of right adrenal gland; D35.02 Benign neoplasm of left adrenal gland; E66.9 Obesity, unspecified
CPT/HCPCS: 43235; 45378; 36415; 71045; 71275; 74174; 78452; 80048; 84484; 85025; 85610; 86850; 86900; 86901; 93005; 93017; 94640; 96361; 96365; 99221; 99252; 99285; A9500; J7030; J7120; Q9967; A4216; G0378; G0463; J2405

== ENCOUNTER 2022-10-13 13:41 | Outpatient (RCR) | payer MEDICARE, OTHER, SELFPAY ==
[2022-09-15 22:26] VITALS: BMI 42.4
[2022-09-17 12:21] LABS: Absolute Lymphocyte Count 1.85 X10^3/uL (0.83-4.51); Absolute Neutrophil Count 8.8 X10^3/uL (2.0-7.7); Basophil% 0.8 % (0-1); Eosinophil# 0.16 X10^3/uL; Eosinophils% 1.3 % (0-5); Hematocrit 42.9 % (40-54); Hemoglobin 14.1 g/dL (13.0-16.5); Lymphocyte # 1.85 X10^3/ul (0.83-4.51); Lymphocyte % 14.8 % (19-41); Mean Corp Hgb Conc 32.9 g/dL (32-36); Mean Corpuscular Hgb 31.9 pg (27.0-32.0); Mean Corpuscular Volume 97.1 fL (80-94); Mean Platelet Vol. 10.2 fl (6.2-12.0); Monocyte# 1.27 X10^3/uL; Monocyte% 10.2 % (0-10); NRBC Flagged by Analyzer 0 % (0-5); Neutrophil # 8.77 X10^3/uL (2.7-7.7); Neutrophil % 70.2 % (47-70); Platelet Count 307 K/mm3 (150-450); RBC Distribution Width CV 13.8 % (11.6-14.6); RBC Distribution Width SD 49.1 fl (35.1-43.9); Red Blood Count 4.42 M/mm3 (4.6-6.2); White Blood Count 12.5 K/mm3 (4.4-11.0)
[2022-09-17 12:37] LABS: International Normalized Ratio 2.4; Prothrombin Time (Protime)PT. 25.4 SECONDS (11.7-14.9)
[2022-09-17 12:44] LABS: PSA,Total - Annual Screen 5.79 ng/mL (0.00-4.00)
[2022-09-29 12:19] LABS: International Normalized Ratio 3.2; Prothrombin Time (Protime)PT. 32.8 SECONDS (11.7-14.9)
[2022-10-13 15:34] LABS: International Normalized Ratio 2.5; Prothrombin Time (Protime)PT. 26.3 SECONDS (11.7-14.9)
== END 2022-10-16 23:12 | disposition home or self-care (01) ==
LOC: LAB 13:41
PROVIDERS: Family Provider Family Medicine; PCP Family Medicine; Referring Provider Internal Medicine Cardiovascular Disease; Visit Provider Internal Medicine Cardiovascular Disease
DX: Z79.01 Long term (current) use of anticoagulants (principal); Z95.2 Presence of prosthetic heart valve; Z12.5 Encounter for screening for malignant neoplasm of prostate; D64.9 Anemia, unspecified
CPT/HCPCS: 36415; 84153; 85025; 85610; G0103

== ENCOUNTER 2022-11-03 08:57 | Outpatient (RCR) | payer MEDICARE, OTHER, SELFPAY ==
[2022-10-16 23:12] VITALS: BMI 42.4
[2022-11-03 10:08] LABS: International Normalized Ratio 3.8; Prothrombin Time (Protime)PT. 37.2 SECONDS (11.7-14.9)
[2022-11-03 10:19] LABS: AST(SGOT) 26 U/L (15-37); Alanine Aminotransfer ALT/SGPT 43 U/L (16-61); Albumin, Serum 3.7 g/dL (3.2-5.0); Alkaline Phosphatase 59 U/L (45-117); Cholesterol 146 mg/dL (200); Globulin 3.3 g/dL (2.2-4.2); High Density Lipoprotein 34 mg/dL; Triglycerides 233 mg/dL; Very Low Density Lipoprotein 47 mg/dL (5-40)
== END 2022-11-15 02:04 | disposition home or self-care (01) ==
LOC: LAB 08:57
PROVIDERS: Nurse Practitioner Family; Family Provider Family Medicine; PCP Family Medicine; Referring Provider Internal Medicine Cardiovascular Disease; Visit Provider Internal Medicine Cardiovascular Disease
DX: Z79.01 Long term (current) use of anticoagulants (principal); Z95.2 Presence of prosthetic heart valve; J45.909 Unspecified asthma, uncomplicated; E78.2 Mixed hyperlipidemia
CPT/HCPCS: 36415; 80061; 80076; 85610; 87070; 87205

== ENCOUNTER 2022-11-16 09:28 | Outpatient (RCR) | payer MEDICARE, OTHER, SELFPAY ==
[2022-11-15 02:04] VITALS: BMI 42.4
[2022-11-16 10:07] LABS: International Normalized Ratio 3.2; Prothrombin Time (Protime)PT. 33.3 SECONDS (11.7-14.9)
== END 2022-12-16 18:00 | disposition home or self-care (01) ==
LOC: LAB 09:28
PROVIDERS: Family Provider Family Medicine; PCP Family Medicine; Referring Provider Internal Medicine Cardiovascular Disease; Visit Provider Internal Medicine Cardiovascular Disease
DX: Z79.01 Long term (current) use of anticoagulants (principal); Z95.2 Presence of prosthetic heart valve
CPT/HCPCS: 36415; 85610

== ENCOUNTER → 2022-11-17 | Outpatient (CLI) | payer MEDICARE, OTHER, SELFPAY ==
[2022-11-17 10:27] LABS: Erythrocyte Sedimentation Rate 4 mm/hr (0-20)
[2022-11-17 11:05] LABS: CRP < 2.90 mg/L (0.0-3.0); LDH 284 U/L (87-241)
[2022-11-18 12:08] LABS: Anti-Centromere B Ab <0.2 AI (0.0-0.9); Anti-Chromatin <0.2 AI (0.0-0.9); Anti-Jo <0.2 AI (0.0-0.9); Anti-Scleroderma-70 AB <0.2 AI (0.0-0.9); Anti-dsDNA Ab 2 IU/mL (0-9); RNP Ab <0.2 AI (0.0-0.9); SJOGREN'S Anti-SS-A test < 0.2 AI (0.0-0.9); SJOGREN'S Anti-SS-B test < 0.2 AI (0.0-0.9); Smith Ab <0.2 AI (0.0-0.9)
[2022-11-18 15:08] LABS: Endomysial Antibody IgA Negative (Negative); Immunoglobulin A 131 mg/dL (61-437); t-Transglutaminase IgA 3 U/mL (0-3)
[2022-11-20 19:06] LABS: Albumin 3.9 g/dL (2.9-4.4); Alpha-1-Globulins 0.2 g/dL (0.0-0.4); Alpha-2-Globulins 0.6 g/dL (0.4-1.0); Cytoplasmic Ab (C-ANCA) <1:20 titer (Neg:<1:20); Immunoglobulin A 125 mg/dL (61-437); Immunoglobulin E 71 IU/mL (6-495); Immunoglobulin G 1035 mg/dL (603-1613); Immunoglobulin M 54 mg/dL (20-172); PROEL- TOTAL PROTEIN 6.9 g/dL (6.0-8.5); Perinuclear Ab (P-ANCA) <1:20 titer (Neg:<1:20)
== END | disposition home or self-care (01) ==
PROVIDERS: PCP Family Medicine; Referring Provider Internal Medicine Gastroenterology; Visit Provider Internal Medicine Gastroenterology
DX: K63.3 Ulcer of intestine (principal)
CPT/HCPCS: 36415; 82784; 82785; 83516; 83615; 84165; 85652; 86140; 86225; 86235; 86255; 86256; 86334

== ENCOUNTER 2022-12-22 12:58 | Outpatient (RCR) | payer MEDICARE, OTHER, SELFPAY ==
[2022-12-17 09:54] VITALS: BMI 42.4
[2022-12-22 13:27] LABS: Absolute Lymphocyte Count 1.79 X10^3/uL (0.83-4.51); Absolute Neutrophil Count 6.1 X10^3/uL (2.0-7.7); Basophil# 0.07 X10^3/uL; Basophil% 0.8 % (0-1); Eosinophil# 0.13 X10^3/uL; Eosinophils% 1.5 % (0-5); Hematocrit 48.1 % (40-54); Hemoglobin 15.7 g/dL (13.0-16.5); Lymphocyte # 1.79 X10^3/ul (0.83-4.51); Lymphocyte % 20.4 % (19-41); Mean Corp Hgb Conc 32.6 g/dL (32-36); Mean Corpuscular Hgb 29.8 pg (27.0-32.0); Mean Corpuscular Volume 91.3 fL (80-94); Mean Platelet Vol. 10.9 fl (6.2-12.0); Monocyte# 0.59 X10^3/uL; Monocyte% 6.7 % (0-10); NRBC Flagged by Analyzer 0 % (0-5); Neutrophil % 69.3 % (47-70); Platelet Count 215 K/mm3 (150-450); RBC Distribution Width CV 14.1 % (11.6-14.6); RBC Distribution Width SD 47.5 fl (35.1-43.9); Red Blood Count 5.27 M/mm3 (4.6-6.2); White Blood Count 8.8 K/mm3 (4.4-11.0)
[2022-12-22 13:43] LABS: International Normalized Ratio 2.5; Prothrombin Time (Protime)PT. 27.1 SECONDS (11.7-14.9)
[2022-12-27 18:07] LABS: Aspirgillus flavus Negative (Neg:<1:1); Aspirgillus fumigatus Negative (Neg:<1:1); Aspirgillus niger Negative (Neg:<1:1); Immunoglobulin E 70 IU/mL (6-495)
[2022-12-27 21:07] LABS: Alternaria alternata <0.10 kU/L (Class 0); Bermuda Grass <0.10 kU/L (Class 0); Bluegrass, Kentucky <0.10 kU/L (Class 0); Cat Hair/Dander, Standard <0.10 kU/L (Class 0); D farinae Mite <0.10 kU/L (Class 0); D pteronyssinus <0.10 kU/L (Class 0); Dog Epithelia <0.10 kU/L (Class 0); Elm, American White <0.10 kU/L (Class 0); Mouse Urine <0.10 kU/L (Class 0); Oak, White <0.10 kU/L (Class 0); Plantain, English <0.10 kU/L (Class 0); Ragweed, Short/Common <0.10 kU/L (Class 0)
== END 2022-12-22 18:00 | disposition home or self-care (01) ==
LOC: LAB 12:58
PROVIDERS: Nurse Practitioner Acute Care; Family Provider Family Medicine; PCP Family Medicine; Referring Provider Nurse Practitioner Family; Visit Provider Nurse Practitioner Family
DX: Z79.01 Long term (current) use of anticoagulants (principal); Z95.2 Presence of prosthetic heart valve; J45.909 Unspecified asthma, uncomplicated
CPT/HCPCS: 36415; 82785; 85025; 85610; 86003; 86606

== ENCOUNTER 2023-01-25 08:44 | Outpatient (RCR) | payer MEDICARE, OTHER, SELFPAY ==
[2023-01-15 22:33] VITALS: BMI 42.4
[2023-01-25 11:00] LABS: Prothrombin Time (Protime)PT. 31.1 SECONDS (11.7-14.9)
[2023-01-25 11:08] LABS: AST(SGOT) 21 U/L (15-37); Alanine Aminotransfer ALT/SGPT 32 U/L (16-61); Albumin, Serum 3.3 g/dL (3.2-5.0); Alkaline Phosphatase 57 U/L (45-117); Bilirubin, Direct 0.16 mg/dL (0.00-0.30); Cholesterol 132 mg/dL (200); Globulin 3.3 g/dL (2.2-4.2); High Density Lipoprotein 34 mg/dL; PSA,Total- Diagnostic 4.76 ng/mL (0.0-4.0); Protein, Total 6.6 g/dL (6.4-8.2); Triglycerides 225 mg/dL; Very Low Density Lipoprotein 45 mg/dL (5-40)
== END 2023-02-15 18:00 | disposition home or self-care (01) ==
LOC: LAB 08:44
PROVIDERS: Family Provider Family Medicine; PCP Family Medicine; Referring Provider Nurse Practitioner Family; Visit Provider Nurse Practitioner Family
DX: Z79.01 Long term (current) use of anticoagulants (principal); Z95.2 Presence of prosthetic heart valve; R97.20 Elevated prostate specific antigen [PSA]
CPT/HCPCS: 36415; 80061; 80076; 84153; 85610

== ENCOUNTER 2023-03-15 09:45 | Outpatient (RCR) | payer MEDICARE, OTHER, SELFPAY ==
[2023-02-16 00:51] VITALS: BMI 42.4
[2023-02-24 10:59] LABS: International Normalized Ratio 2.1; Prothrombin Time (Protime)PT. 24.1 SECONDS (11.7-14.9)
[2023-02-24 11:20] LABS: Anion Gap 7 (5-15); BUN 18 mg/dL (7-18); BUN/Creat Ratio 15.8 RATIO (10-20); Calcium,Total 9.2 mg/dL (8.5-10.1); Chloride 108 mmol/L (98-107); Creatinine, Serum 1.14 mg/dL (0.70-1.30); EST Glomerular Filtration Rate 68 mL/min (>60); Est Glom Filt Rate - Afr Amer 82 mL/min (>60); Glucose 94 mg/dL (74-106); Potassium 4.1 mmol/L (3.5-5.1); Sodium Level 141 mmol/L (136-145)
[2023-03-15 10:52] LABS: International Normalized Ratio 2.9; Prothrombin Time (Protime)PT. 31.1 SECONDS (11.7-14.9)
== END 2023-03-15 18:00 | disposition home or self-care (01) ==
LOC: LAB 09:45
PROVIDERS: Internal Medicine Gastroenterology; Family Provider Family Medicine; PCP Family Medicine; Referring Provider Nurse Practitioner Family; Visit Provider Nurse Practitioner Family
DX: Z79.01 Long term (current) use of anticoagulants (principal); Z95.2 Presence of prosthetic heart valve
CPT/HCPCS: 36415; 80048; 85610

== ENCOUNTER 2023-05-11 07:48 | Outpatient (RCR) | payer MEDICARE, OTHER, SELFPAY ==
[2023-03-18 23:05] VITALS: BMI 42.4
[2023-04-26 10:00] LABS: International Normalized Ratio 2.8
[2023-05-11 08:31] LABS: International Normalized Ratio 3.2; Prothrombin Time (Protime)PT. 33.4 SECONDS (11.7-14.9)
== END 2023-05-11 18:00 | disposition home or self-care (01) ==
LOC: LAB 07:48
PROVIDERS: Family Provider Family Medicine; PCP Family Medicine; Referring Provider Nurse Practitioner Family; Visit Provider Nurse Practitioner Family
DX: Z79.01 Long term (current) use of anticoagulants (principal); Z95.2 Presence of prosthetic heart valve
CPT/HCPCS: 36415; 85610

== ENCOUNTER 2023-06-16 09:07 | Outpatient (RCR) | payer MEDICARE, OTHER, SELFPAY ==
[2023-05-18 22:26] VITALS: BMI 42.4
[2023-06-16 10:57] LABS: International Normalized Ratio 3.1; Prothrombin Time (Protime)PT. 32.1 SECONDS (11.7-14.9)
== END 2023-06-17 18:00 | disposition home or self-care (01) ==
LOC: LAB 09:07
PROVIDERS: Family Provider Family Medicine; PCP Family Medicine; Referring Provider Nurse Practitioner Family; Visit Provider Nurse Practitioner Family
DX: Z79.01 Long term (current) use of anticoagulants (principal); Z95.2 Presence of prosthetic heart valve
CPT/HCPCS: 36415; 85610

== ENCOUNTER 2023-07-05 10:46 | Outpatient (RCR) | payer MEDICARE, OTHER, SELFPAY ==
[2023-06-18 03:12] VITALS: BMI 42.4
[2023-06-28 11:16] LABS: International Normalized Ratio 1.9; Prothrombin Time (Protime)PT. 22.2 SECONDS (11.7-14.9)
[2023-07-05 11:37] LABS: Prothrombin Time (Protime)PT. 31.6 SECONDS (11.7-14.9)
== END 2023-07-18 18:00 | disposition home or self-care (01) ==
LOC: LAB 10:46
PROVIDERS: Family Provider Family Medicine; PCP Family Medicine; Referring Provider Nurse Practitioner Family; Visit Provider Nurse Practitioner Family
DX: Z79.01 Long term (current) use of anticoagulants (principal); Z95.2 Presence of prosthetic heart valve
CPT/HCPCS: 36415; 85610

== ENCOUNTER 2023-08-02 08:17 | Outpatient (RCR) | payer MEDICARE, OTHER, SELFPAY ==
[2023-07-18 20:57] VITALS: BMI 42.4
[2023-08-02 10:01] LABS: Prothrombin Time (Protime)PT. 103.2 SECONDS (11.7-14.9)
[2023-08-02 10:09] LABS: International Normalized Ratio 13.3
[2023-08-02 12:08] LABS: Hematocrit 50.2 % (40-54); Hemoglobin 17.1 g/dL (13.0-16.5); Mean Corp Hgb Conc 34.1 g/dL (32-36); Mean Corpuscular Hgb 31.8 pg (27.0-32.0); Mean Corpuscular Volume 93.5 fL (80-94); Mean Platelet Vol. 11.1 fl (6.2-12.0); Platelet Count 190 K/mm3 (150-450); RBC Distribution Width CV 13.2 % (11.6-14.6); RBC Distribution Width SD 45.3 fl (35.1-43.9); Red Blood Count 5.37 M/mm3 (4.6-6.2); White Blood Count 10.4 K/mm3 (4.4-11.0)
[2023-08-02 12:27] LABS: International Normalized Ratio 3.2; Prothrombin Time (Protime)PT. 32.9 SECONDS (11.7-14.9)
[2023-08-02 12:52] LABS: ALB/GLOB Ratio 1.1 RATIO (0.9-2.4); AST(SGOT) 21 U/L (15-37); Alanine Aminotransfer ALT/SGPT 35 U/L (16-61); Albumin, Serum 3.7 g/dL (3.2-5.0); Alkaline Phosphatase 67 U/L (45-117); Anion Gap 8 (5-15); BUN 14 mg/dL (7-18); BUN/Creat Ratio 12.4 RATIO (10-20); Calcium,Total 8.7 mg/dL (8.5-10.1); Chloride 110 mmol/L (98-107); Creatinine, Serum 1.13 mg/dL (0.70-1.30); EST Glomerular Filtration Rate 68 mL/min (>60); Est Glom Filt Rate - Afr Amer 83 mL/min (>60); Globulin 3.3 g/dL (2.2-4.2); Glucose 132 mg/dL (74-106); Potassium 4.3 mmol/L (3.5-5.1); Sodium Level 140 mmol/L (136-145)
== END 2023-08-02 18:00 | disposition home or self-care (01) ==
LOC: LAB 08:17
PROVIDERS: Family Provider Family Medicine; PCP Family Medicine; Referring Provider Nurse Practitioner Family; Visit Provider Nurse Practitioner Family
DX: Z79.01 Long term (current) use of anticoagulants (principal); Z95.2 Presence of prosthetic heart valve; R79.1 Abnormal coagulation profile
CPT/HCPCS: 36415; 80053; 85027; 85610

== ENCOUNTER 2023-09-09 12:11 | Outpatient (RCR) | payer MEDICARE, OTHER, SELFPAY ==
[2023-08-18 23:14] VITALS: BMI 42.4
[2023-08-23 12:50] LABS: Prothrombin Time (Protime)PT. 40.2 SECONDS (11.7-14.9)
[2023-08-23 12:53] LABS: International Normalized Ratio 4.1
[2023-08-23 14:25] LABS: Hemoglobin A1c 5.1 % (3.8-5.6)
[2023-09-09 12:55] LABS: International Normalized Ratio 3.5; Prothrombin Time (Protime)PT. 35.8 SECONDS (11.7-14.9)
== END 2023-09-16 18:00 | disposition home or self-care (01) ==
LOC: LAB 12:11
PROVIDERS: Physician Assistant Medical; Family Provider Family Medicine; PCP Family Medicine; Referring Provider Nurse Practitioner Family; Visit Provider Nurse Practitioner Family
DX: Z79.01 Long term (current) use of anticoagulants (principal); Z95.2 Presence of prosthetic heart valve; E66.01 Morbid (severe) obesity due to excess calories; Z68.41 Body mass index [BMI] 40.0-44.9, adult
CPT/HCPCS: 36415; 83036; 85610

== ENCOUNTER 2023-10-12 11:15 | Outpatient (RCR) | payer MEDICARE, OTHER, SELFPAY ==
[2023-09-16 23:54] VITALS: BMI 42.4
[2023-09-24 13:39] LABS: International Normalized Ratio 1.3; Prothrombin Time (Protime)PT. 15.7 SECONDS (11.7-14.9)
[2023-09-27 10:41] LABS: International Normalized Ratio 1.6; Prothrombin Time (Protime)PT. 19.4 SECONDS (11.7-14.9)
[2023-09-30 10:44] LABS: International Normalized Ratio 2.1; Prothrombin Time (Protime)PT. 23.5 SECONDS (11.7-14.9)
[2023-10-12 11:59] LABS: International Normalized Ratio 2.7; Prothrombin Time (Protime)PT. 28.3 SECONDS (11.7-14.9)
== END 2023-10-17 01:00 | disposition home or self-care (01) ==
LOC: LAB 11:15
PROVIDERS: Physician Assistant Medical; Family Provider Family Medicine; PCP Family Medicine; Referring Provider Nurse Practitioner Family; Visit Provider Nurse Practitioner Family
DX: Z79.01 Long term (current) use of anticoagulants (principal); Z95.2 Presence of prosthetic heart valve
CPT/HCPCS: 36415; 85610

== ENCOUNTER 2023-11-09 08:52 | Outpatient (RCR) | payer MEDICARE, OTHER, SELFPAY ==
[2023-10-17 01:01] VITALS: BMI 42.4
[2023-11-09 10:57] LABS: International Normalized Ratio 3.7; Prothrombin Time (Protime)PT. 36.2 SECONDS (11.7-14.9)
== END 2023-11-16 23:14 | disposition home or self-care (01) ==
LOC: LAB 08:52
PROVIDERS: Family Provider Family Medicine; PCP Family Medicine; Referring Provider Nurse Practitioner Family; Visit Provider Nurse Practitioner Family
DX: Z95.2 Presence of prosthetic heart valve
CPT/HCPCS: 36415; 85610

== ENCOUNTER 2023-12-11 17:03 | Emergency (ER) | payer MEDICARE, OTHER, SELFPAY ==
[2023-12-11 17:04] VITALS: BP 150/89; PULSE 65; RESP 16; TEMP 36.7; O2SAT 98; BMI 40.6
--- NOTE | 2023-12-11 17:23 | EX.ED.UPPERE ---
HPI History of Present Illness Chief Complaint: Upper Extremity Injury Informant: patient and spouse/S.O. Narrative Narrative: 68-year-old male presenting to the emergency room with left forearm and hand pain. Patient states he was trying to get a small engine to start by pulling on the cord. States at 1 point it locked up and he felt pain and rest up to the medial proximal forearm. Now he notes increased swelling and pain. He has had prior carpal tunnel syndrome. He notes chronic arthritis and chronic paresthesias/decreased sensation of the hand. He notes he has long-term use of anticoagulants due to mechanical aortic valve replacement. Pain is worse when he goes into extension. He has pain with flexion against resistance. [facility] Medical History Mixed hyperlipidemia Thoracic aortic aneurysm without rupture JO ANN (obstructive sleep apnea) Essential hypertension GERD (gastroesophageal reflux disease) Atherosclerosis of [place] coronary artery of [place] heart without angina pectoris Obesity Breathing-related sleep disorder COPD (chronic obstructive pulmonary disease) Lung nodule Snoring Carotid bruit Aortic valve, bicuspid Aortic aneurysm, thoracic Aortic valve disease Hypokalemia Home Medications ?Medication ?Instructions ?Recorded ?Last Taken ?Type aspirin 81 mg tablet,delayed 81 mg PO QDAY heart health 08/05/17 09/06/22 History release (Ecotrin Low Strength) warfarin 3 mg tablet 3 mg PO DAILY #90 tabs 06/05/22 09/04/22 Rx cetirizine 10 mg capsule 10 mg PO HS allergy #100 caps 10/15/22 Unknown Rx albuterol sulfate 90 mcg/actuation 2 puff inhalation Q4H PRN 12/08/22 Unknown Rx aerosol inhaler (Proventil HFA) shortness of breath or wheezing #6.7 grams dupilumab 300 mg/2 mL subcutaneous 300 mg (2 mL) subcut Q2W #4 mL 01/05/23 Unknown Rx pen injector (Dupixent) metoprolol succinate 50 mg 50 mg PO QDAY b/p #90 tabs 03/29/23 Unknown Rx tablet,extended release 24 hr potassium chloride 20 mEq 20 meq PO QDAY k replacement #90 08/11/23 Unknown Rx tablet,extended tabs release(part/cryst) (Klor-Con M) ramipril 10 mg capsule 10 mg PO QDAY b/p #90 caps 08/11/23 Unknown Rx spironolactone 50 mg tablet 50 mg PO QDAY diuretic #90 tabs 08/11/23 Unknown Rx (Aldactone) warfarin 1 mg tablet 2 mg PO .COMPLEX #180 tabs 08/11/23 Unknown Rx warfarin 5 mg tablet 5 mg PO QDAY #90 tabs 08/11/23 Unknown Rx enoxaparin 120 mg/0.8 mL 120 mg (0.8 mL) subcut BID #8 mL 09/24/23 Unknown Rx subcutaneous syringe montelukast 10 mg tablet 10 mg PO QPM allergies #90 tabs 11/08/23 Unknown Rx doxycycline hyclate 100 mg tablet 100 mg PO BID #20 tabs 11/19/23 Unknown Rx prednisone 10 mg tablet 10 mg PO QDAY #30 tabs 11/19/23 Unknown Rx Allergy/AdvReac Type Severity Reaction Status Date / Time Penicillins Allergy Unknown Verified 12/11/23 17:03 Family History Father , age 60 Myocardial infarction Hypertension Mother CAD (coronary artery disease) Hypertension HLD (hyperlipidemia) Brother Hypertension Sister Cancer Bone Cancer Other H/O aortic valve replacement History of mechanical aortic valve replacement Surgical History History of surgery History of carpal tunnel surgery of left wrist History of mechanical aortic valve replacement (~06/2004) History of right and left heart catheterization History of left heart catheterization (LHC) H/O aortic valve replacement Social History Smoking Status: Never smoker alcohol intake: current alcohol intake frequency: holidays/special occasions only Alcohol type: beer and wine substance use type: does not use caffeine: Yes Type: coffee Number of servings: 3 what type of physical activity do you participate in: none seatbelt use: always do you feel safe at home: Yes ROS ROS ED Constitutional Constitutional ED: Denies chills or weight loss Eyes Eyes: Denies change in vision or diplopia ENT ENT ED: Denies ear pain, rhinorrhea or sore throat Cardiovascular Cardiovascular: Denies chest pain, orthopnea, palpitations or racing heartbeat Respiratory/Chest Respiratory/Chest: Denies cough, dyspnea or orthopnea Gastrointestinal Gastrointestinal: Denies abdominal pain, diarrhea, nausea or vomiting Genitourinary Genitourinary ED: Denies dysuria, hematuria or urinary frequency Musculoskeletal Musculoskeletal: Reports other Details: Left forearm and hand pain ; Denies arthralgias or myalgias Integumentary Denies abscess or rash Neurologic Neurologic: Reports paresthesias and sensory deficit; Denies headache(s) or weakness Psychiatric Psychiatric: Denies anxiety, depression, suicidal ideation or suicidal thoughts Endocrine Endocrinology: Denies polydipsia, polyphagia or polyuria Allergic/Immunologic Allergic/Immunologic ED: Denies mouth swelling, tongue swelling or urticaria EXAM Physical Exam Const Vital Signs: 12/11/23 17:04 Temperature 98.1 F Temperature Source Temporal Pulse Rate 65 Respiratory Rate 16 Blood Pressure 150/89 H Blood Pressure Mean 109 Pulse Ox 98 Oxygen Delivery Method Room Air Positive well nourished and well developed General Appearance ED: well developed HEENT Reports normocephalic, head/scalp atraumatic and moist mucous membranes Eyes PERRL and EOMs intact bilaterally Neck no lymphadenopathy, supple and no JVD Resp normal respiratory effort and clear to auscultation bilaterally Cardio regular rate, regular rhythm and no murmurs GI normal to inspection, nondistended, normoactive bowel sounds and non-tender Palpation: soft Back/Spine no CVA tenderness and normal ROM Extremity Extremity Narrative: Patient is tenderness palpation along the medial left anterior forearm musculature. And along the tendon of the forearm of the same muscles. He has significant pain with extension. He has pain when he tries to make a fist against resistance. There is mild swelling. There is chronic bruising. No obvious deformity. Vascularly appears intact with good cap refill and radial ulnar pulses. General Extremety ED: Negative for edema General Extremity: Negative for edema Neuro oriented x3 and CN's II-XII intact bilaterally Sensorium / Orientation: alert Motor Exam: strength 5/5 throughout Psych mental status grossly normal Mood & Affect: Negative for depressed or tearful Skin no rashes or lesions noted and no wounds MDM MDM MDM Narrative Medical decision making narrative: Differential diagnosis includes muscle sprain/strain tendinitis fracture infection hematoma My independent interpretation of the plain films of the left hand and left forearm is no acute fracture. Significant degenerative changes noted. Clinically I believe this to be a muscle strain with possible tendinitis. Will place him in a thumb spica splint. Would recommend ice. Because he is on Coumadin I am not recommending he take scheduled anti-inflammatories. Follow-up primary care in a week. History & Record Review Discussion w/independent historian: Patient and Significant other Discharge Plan Triage Chief Complaint: Upper Extremity Injury ED Provider: Nirmal Watson Dx/Rx/DC Orders Clinical Impression: Muscle strain of forearm, Forearm tendonitis Instructions: ED Muscle Strain, Extremity, ED Tendonitis Prescriptions: No Action aspirin [Ecotrin Low Strength] 81 mg tablet,delayed release (DR/EC) 81 mg PO QDAY warfarin 3 mg tablet 3 mg PO DAILY Qty: 90 3RF Protocol: Dose Management Condition: Wednesday Dose/Route: 8 mg Instruction: 1 x 3 mg tablet, 1 x 5 mg tablet Condition: Wednesday Dose/Route: 7 mg Instruction: 2 x 1 mg tablets, 1 x 5 mg tablet Condition: Wednesday Dose/Route: 5 mg Instruction: 1 x 5 mg tablet Condition: Wednesday Dose/Route: 7 mg Instruction: 2 x 1 mg tablets, 1 x 5 mg tablet Condition: Dose/Route: 7 mg Instruction: 2 x 1 mg tablets, 1 x 5 mg tablet Condition: Wednesday Dose/Route: 7 mg Instruction: 2 x 1 mg tablets, 1 x 5 mg tablet Condition: Wednesday Dose/Route: 8 mg Instruction: 1 x 3 mg tablet, 1 x 5 mg tablet Protocol Text: Adjustment Start Date: Wednesday11/09/23 INR Value: 3.7 INR Date: 11/09/23 Recheck Date: 11/23/23 Rx Instructions: Take 1 tab daily in addition to 5 mg tab to = 8 mg daily, or as directed for dose changes. Dupixent Pen 300 mg/2 mL pen injector 300 mg subcut Q2W Qty: 4 12RF cetirizine 10 mg capsule 10 mg PO HS Qty: 100 3RF Proventil HFA 90 mcg/actuation HFA aerosol inhaler 2 puff INHALATION Q4H PRN (Reason: shortness of breath or wheezing) Qty: 6.7 6RF metoprolol succinate 50 mg tablet extended release 24 hr 50 mg PO QDAY Qty: 90 3RF warfarin 1 mg tablet 2 mg PO .COMPLEX Qty: 180 3RF Protocol: Dose Management Condition: Wednesday Dose/Route: 8 mg Instruction: 1 x 3 mg tablet, 1 x 5 mg tablet Condition: Wednesday Dose/Route: 7 mg Instruction: 2 x 1 mg tablets, 1 x 5 mg tablet Condition: Wednesday Dose/Route: 5 mg Instruction: 1 x 5 mg tablet Condition: Wednesday Dose/Route: 7 mg Instruction: 2 x 1 mg tablets, 1 x 5 mg tablet Condition: Dose/Route: 7 mg Instruction: 2 x 1 mg tablets, 1 x 5 mg tablet Condition: Wednesday Dose/Route: 7 mg Instruction: 2 x 1 mg tablets, 1 x 5 mg tablet Condition: Wednesday Dose/Route: 8 mg Instruction: 1 x 3 mg tablet, 1 x 5 mg tablet Protocol Text: Adjustment Start Date: Wednesday11/09/23 INR Value: 3.7 INR Date: 11/09/23 Recheck Date: 11/23/23 Rx Instructions: 1 mg PO take two tablets with a 5 mg tablet to = 7 mg daily spironolactone [Aldactone] 50 mg tablet 50 mg PO QDAY Qty: 90 3RF ramipril 10 mg capsule 10 mg PO QDAY Qty: 90 3RF warfarin 5 mg tablet 5 mg PO QDAY Qty: 90 3RF Protocol: Dose Management Condition: Wednesday Dose/Route: 8 mg Instruction: 1 x 3 mg tablet, 1 x 5 mg tablet Condition: Wednesday Dose/Route: 7 mg Instruction: 2 x 1 mg tablets, 1 x 5 mg tablet Condition: Wednesday Dose/Route: 5 mg Instruction: 1 x 5 mg tablet Condition: Wednesday Dose/Route: 7 mg Instruction: 2 x 1 mg tablets, 1 x 5 mg tablet Condition: Dose/Route: 7 mg Instruction: 2 x 1 mg tablets, 1 x 5 mg tablet Condition: Wednesday Dose/Route: 7 mg Instruction: 2 x 1 mg tablets, 1 x 5 mg tablet Condition: Wednesday Dose/Route: 8 mg Instruction: 1 x 3 mg tablet, 1 x 5 mg tablet Protocol Text: Adjustment Start Date: Wednesday11/09/23 INR Value: 3.7 INR Date: 11/09/23 Recheck Date: 11/23/23 Rx Instructions: take 7 mg a day ( 5 mg and two 1 mg) potassium chloride [Klor-Con M20] 20 mEq tablet,ER particles/crystals 20 meq PO QDAY Qty: 90 3RF enoxaparin 120 mg/0.8 mL syringe 120 mg subcut BID Qty: 8 1RF montelukast 10 mg tablet 10 mg PO QPM Qty: 90 3RF doxycycline hyclate 100 mg tablet 100 mg PO BID Qty: 20 0RF prednisone 10 mg tablet 10 mg PO QDAY Qty: 30 0RF Rx Instructions: take 4 tabs for three days, then 3 tabs for three days, then 2 tabs for three days, then 1 tab for 3 days Primary Care Provider: Sindhu Bird Referrals: Sindhu Bird MD [Primary Care Provider] - 1 Week Print Language: Occitan Disposition Disposition: Home, Self Care
--- NOTE | 2023-12-11 17:30 | RAD_ITS ---
INDICATION: injury EXAMINATION/TECHNIQUE: X-RAY - LEFT XR Forearm 2 Views COMPARISON: None. FINDINGS: No acute fracture or malalignment. No blastic or lytic lesions. Moderate to severe degenerative changes of the radiocarpal, first carpometacarpal and interphalangeal joints. There is increased scapholunate distance. There is rotatory subluxation of the scaphoid. There is proximal migration of the scaphoid and capitate. Diffuse soft tissue swelling. RAD/Forearm 2 Views IMPRESSION: No acute radiographic abnormalities. 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 Electronically Signed: Jorge Luis Mejia MD at 18:37 EDT ,
--- NOTE | 2023-12-11 17:30 | RAD_ITS ---
INDICATION: injury EXAMINATION/TECHNIQUE: X-RAY - LEFT XR Hand Min 3 Views COMPARISON: None. FINDINGS: No acute fracture or malalignment. No blastic or lytic lesions. Moderate to severe degenerative changes of the radiocarpal, first carpometacarpal and interphalangeal joints. Diffuse soft tissue swelling. RAD/Hand Min 3 Views IMPRESSION: No acute radiographic abnormalities. 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 Electronically Signed: Jorge Luis Mejia MD at 18:31 EDT ,
== END 2023-12-11 19:13 | disposition home or self-care (01) ==
PROVIDERS: Emergency Provider Emergency Medicine; PCP Family Medicine; Visit Provider Emergency Medicine
DX: S56.812A Strain of other muscles, fascia and tendons at forearm level, left arm, initial encounter (principal); X58.XXXA Exposure to other specified factors, initial encounter; Y93.89 Activity, other specified; M77.9 Enthesopathy, unspecified; Z95.2 Presence of prosthetic heart valve; Z79.01 Long term (current) use of anticoagulants
CPT/HCPCS: 73090; 73130; 99283

== ENCOUNTER 2023-12-29 10:35 | Outpatient (RCR) | payer MEDICARE, OTHER, SELFPAY ==
[2023-11-16 23:14] VITALS: BMI 42.4
[2023-12-29 11:12] LABS: Prothrombin Time (Protime)PT. 31.1 SECONDS (11.7-14.9)
== END 2023-12-29 18:00 | disposition home or self-care (01) ==
LOC: LAB 10:35
PROVIDERS: Family Provider Family Medicine; PCP Family Medicine; Referring Provider Nurse Practitioner Family; Visit Provider Nurse Practitioner Family
DX: Z79.01 Long term (current) use of anticoagulants (principal); Z95.2 Presence of prosthetic heart valve
CPT/HCPCS: 36415; 85610

== ENCOUNTER 2024-01-21 11:17 | Outpatient (RCR) | payer MEDICARE, OTHER, SELFPAY ==
[2024-01-17 03:20] VITALS: BMI 42.4
[2024-01-21 12:08] LABS: International Normalized Ratio 3.7; Prothrombin Time (Protime)PT. 36.2 SECONDS (11.7-14.9)
[2024-01-21 12:41] LABS: AST(SGOT) 23 U/L (15-37); Alanine Aminotransfer ALT/SGPT 35 U/L (16-61); Albumin, Serum 3.6 g/dL (3.2-5.0); Alkaline Phosphatase 53 U/L (45-117); Bilirubin, Direct 0.22 mg/dL (0.00-0.30); Cholesterol 134 mg/dL (200); Globulin 3.2 g/dL (2.2-4.2); High Density Lipoprotein 43 mg/dL; Protein, Total 6.8 g/dL (6.4-8.2); Triglycerides 207 mg/dL; Very Low Density Lipoprotein 41 mg/dL (5-40)
== END 2024-02-16 18:00 | disposition home or self-care (01) ==
LOC: LAB 11:17
PROVIDERS: Family Provider Family Medicine; PCP Family Medicine; Referring Provider Nurse Practitioner Family; Visit Provider Nurse Practitioner Family
DX: Z79.01 Long term (current) use of anticoagulants (principal); Z95.2 Presence of prosthetic heart valve; E78.2 Mixed hyperlipidemia
CPT/HCPCS: 36415; 80061; 80076; 85610

== ENCOUNTER → 2024-03-06 | Outpatient (CLI) | payer MEDICARE, OTHER, SELFPAY ==
--- NOTE | 2024-03-06 08:51 | ECHOCS_ITS ---
Reason For Study: AORTIC VALVE REPLACEMENT Procedure This was a 2D Doppler, Color Flow transthoracic echocardiogram. The study was technically difficult. Contrast injection was performed. Exam performed in department. Left Ventricle Normal LV size. The estimated ejection fraction is 65 %. Unable to assess diastolic dysfunction. No regional wall motion abnormalities noted. Right Ventricle Normal RV size. Normal systolic function. Atria The left and right atria are normal. No doppler evidence for ASD. Mitral Valve There is no mitral valve stenosis. No mitral valve insufficiency. Tricuspid Valve There is no tricuspid stenosis. Unable to estimate RV systolic pressure due to inadequate jet, pulmonary artery pressure probably normal. Aortic Valve There is no aortic stenosis. No aortic valve insufficiency. Stable appearing mechanical aortic valve apparatus. Pulmonic Valve There is no pulmonic valvular stenosis. No pulmonic valve insufficiency. Great Vessels Normal aortic root. Pericardium/Pleural No pericardial effusion. Medication 22 gauge I.V. with prn adaptor inserted into left arm. Diluted definity 2.5ml given slow IV push to enhance endocardial definition. MMode/2D Measurements & Calculations LVOT diam: 2.0 cm Ao root diam: 4.1 cm LAV(MOD-bp): 53.2 ml LVOT area: 3.1 cm2 LAV(MOD-bp) Indexed: 22.5 ml/m2 LAV(MOD-sp2): 67.0 ml LAV(MOD-sp4): 41.6 ml SV(MOD-sp4): 85.4 ml LVAd ap4: 39.4 cm2 LVAd ap2: 39.7 cm2 LVLd ap4: 9.2 cm LVLd ap2: 9.3 cm EDV(MOD-sp4): 137.2 ml EDV(MOD-sp2): 141.0 ml EDV(sp4-el): 143.8 ml EDV(sp2-el): 143.1 ml LVAs ap4: 21.7 cm2 LVAs ap2: 19.5 cm2 LVLs ap4: 7.6 cm LVLs ap2: 7.3 cm ESV(MOD-sp4): 51.8 ml ESV(MOD-sp2): 46.2 ml ESV(sp4-el): 52.5 ml ESV(sp2-el): 44.4 ml EF(MOD-sp4): 62.2 % EF(MOD-sp2): 67.2 % EF(sp4-el): 63.5 % SV(MOD-sp2): 94.8 ml SV(sp4-el): 91.3 ml LA A4 area: 17.2 cm2 LA dimension(2D): 3.2 cm TAPSE: 1.7 cm RA A4 area: 13.3 cm2 Time Measurements MV dec time: 0.25 sec Doppler Measurements & Calculations MV E max karthik: 64.4 cm/sec Lat Peak E' Karthik: 5.7 cm/sec Med Peak E' Karthik: 6.9 cm/sec MV A max karthik: 94.8 cm/sec E/E' lat: 11.3 E/E' med: 9.3 MV E/A: 0.68 MV dec slope: 260.5 cm/sec2 Ao V2 max: 213.8 cm/sec LV V1 max: 92.5 cm/sec Ao max P.3 mmHg LV V1 max P.4 mmHg Ao V2 mean: 156.1 cm/sec LV V1 mean P.2 mmHg Ao mean P.9 mmHg LV V1 mean: 71.9 cm/sec Ao V2 VTI: 40.5 cm LV V1 VTI: 20.9 cm AV (velocity ratio): 0.52 GILMER(I,D): 1.6 cm2 GILMER(V,D): 1.4 cm2 SV(LVOT): 65.7 ml PA V2 max: 112.6 cm/sec PA max PG (full): 3.4 mmHg ECHO/Echo Complete W/ Contrast Interpretation Summary The estimated ejection fraction is 65 %. Unable to assess diastolic dysfunction. Stable appearing mechanical aortic valve apparatus. Ordering Physician: Alberto Zhang Referring Physician: Alberto Zhang Performed By: Leslie Quintero RDCS
== END | disposition home or self-care (01) ==
LOC: CVS 08:48
PROVIDERS: PCP Family Medicine; Referring Provider Nurse Practitioner Family; Visit Provider Nurse Practitioner Family
DX: Z95.2 Presence of prosthetic heart valve (principal)
CPT/HCPCS: 93306; Q9957; A4216; C8929

== ENCOUNTER 2024-03-13 10:47 | Outpatient (RCR) | payer MEDICARE, OTHER, SELFPAY ==
[2024-02-16 22:08] VITALS: BMI 42.4
[2024-03-03 10:19] LABS: Anion Gap 5 (5-15); BUN 17 mg/dL (7-18); BUN/Creat Ratio 16.5 RATIO (10-20); Calcium,Total 8.9 mg/dL (8.5-10.1); Chloride 110 mmol/L (98-107); Creatinine, Serum 1.03 mg/dL (0.70-1.30); EST Glomerular Filtration Rate 76 mL/min (>60); Est Glom Filt Rate - Afr Amer 92 mL/min (>60); Glucose 106 mg/dL (74-106); Potassium 4.3 mmol/L (3.5-5.1); Sodium Level 140 mmol/L (136-145)
[2024-03-13 11:13] LABS: International Normalized Ratio 3.4; Prothrombin Time (Protime)PT. 34.2 SECONDS (11.7-14.9)
== END 2024-03-13 18:00 | disposition home or self-care (01) ==
LOC: LAB 10:47
PROVIDERS: Family Provider Family Medicine; PCP Family Medicine; Referring Provider Nurse Practitioner Family; Visit Provider Nurse Practitioner Family
DX: Z79.01 Long term (current) use of anticoagulants (principal); Z95.2 Presence of prosthetic heart valve; R97.20 Elevated prostate specific antigen [PSA]; Z79.899 Other long term (current) drug therapy
CPT/HCPCS: 36415; 80048; 84153; 85610

== ENCOUNTER 2024-04-18 10:41 | Outpatient (RCR) | payer MEDICARE, OTHER, SELFPAY ==
[2024-03-19 04:17] VITALS: BMI 42.4
[2024-04-18 12:20] LABS: International Normalized Ratio 2.7; Prothrombin Time (Protime)PT. 28.7 SECONDS (11.7-14.9)
== END 2024-04-18 18:00 | disposition home or self-care (01) ==
LOC: LAB 10:41
PROVIDERS: Family Provider Family Medicine; PCP Family Medicine; Referring Provider Nurse Practitioner Family; Visit Provider Nurse Practitioner Family
DX: Z79.01 Long term (current) use of anticoagulants (principal); Z95.2 Presence of prosthetic heart valve
CPT/HCPCS: 36415; 85610

== ENCOUNTER 2024-06-02 12:06 | Outpatient (RCR) | payer MEDICARE, OTHER, SELFPAY ==
[2024-05-18 20:57] VITALS: BMI 42.4
[2024-06-02 12:36] LABS: International Normalized Ratio 2.6
== END 2024-06-17 18:00 | disposition home or self-care (01) ==
LOC: LAB 12:06
PROVIDERS: Family Provider Family Medicine; PCP Family Medicine; Referring Provider Nurse Practitioner Family; Visit Provider Nurse Practitioner Family
DX: Z79.01 Long term (current) use of anticoagulants (principal); Z95.2 Presence of prosthetic heart valve

== ENCOUNTER 2024-07-10 06:46 | Outpatient (RCR) | payer MEDICARE, OTHER, SELFPAY ==
[2024-06-17 23:54] VITALS: BMI 42.4
[2024-06-21 12:31] LABS: International Normalized Ratio 3.3; Prothrombin Time (Protime)PT. 33.2 SECONDS (11.7-14.9)
== END 2024-07-10 18:00 | disposition home or self-care (01) ==
LOC: LAB 06:46
PROVIDERS: Family Provider Family Medicine; PCP Family Medicine; Referring Provider Nurse Practitioner Family; Visit Provider Nurse Practitioner Family
DX: Z79.01 Long term (current) use of anticoagulants (principal); Z95.2 Presence of prosthetic heart valve
CPT/HCPCS: 36415; 85610

== ENCOUNTER → 2024-07-10 | Outpatient (CLI) | payer MEDICARE, OTHER, SELFPAY ==
--- NOTE | 2024-07-10 07:03 | CT_ITS ---
CT RIGHT LOWER EXTREMITY WITH 3-D IMAGING CLINICAL INDICATION: OSTEOARTHRITIS, RT ALBERT TECHNIQUE: Axial CT images of the RIGHT lower extremity was performed without IV contrast material. Coronal and sagittal reformats were provided. The protocol utilizes one or more of the following dose reduction techniques: automated exposure control, adjustment of mA and/or kV according to patient size,and/or use of iterative reconstruction technique. RADIATION DOSAGE (If Supplied By Facility): CTDIvol = ( 18.76 ) mGy, DLP = ( 1269.01 ) mGycm COMPARISON: FINDINGS: Bones: Osseous structures are normal without evidence of fracture or dislocation. No lytic or blastic osseous masses. Soft Tissues: The deep soft tissue structures are unremarkable. The superficial soft tissues are unremarkable without evidence of edema, hematoma, or foreign body. Moderate joint space narrowing and subchondral sclerosis of the medial compartment of the knee consistent with moderate arthrosis. CT/Extremity Lower without Contra IMPRESSION: Moderate right knee arthrosis. Electronically Signed: Kurt Watson MD at 13:52 EST ,
== END | disposition home or self-care (01) ==
PROVIDERS: PCP Family Medicine; Referring Provider Student in an Organized Health Care Education/Training Program; Visit Provider Student in an Organized Health Care Education/Training Program
DX: M17.11 Unilateral primary osteoarthritis, right knee (principal)
CPT/HCPCS: 73700

== ENCOUNTER 2024-07-31 09:29 | Observation (INO) | payer MEDICARE, SELFPAY ==
--- NOTE | 2024-07-05 11:07 | PAT.ANESEVAL ---
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 When Was Last Pacemaker Check QUESTION #4 FULL TEXT: You/Your Family Experience fever (hyperthermia) with Anesthesia Last Oral Intake Last Oral intake: Last Oral Intake NPO since Meds taken in AM with sips of water? Meds patient instructed to take am of surgery PONV PONV - dobby loom chain pegger: PONV - dobby loom chain pegger Female No 07/05/24 09:01 HX of Motion Sickness No 07/05/24 09:01 HX of N/V After Surgery No 07/05/24 09:01 Non-Smoker Yes 07/05/24 09:01 Duration of Surgery greater Yes 07/05/24 09:01 than 60 minutes Number of Risk Factors 2 07/05/24 09:01 PONV Score Moderate Risk 07/05/24 09:01 Height & Weight Height & Weight: Anesthesia: Height & Weight Height 5 ft 9 in 02/11/24 08:31 Respiratory Assessment Respiratory Assessment - dobby loom chain pegger: Respiratory Tract Infection Hx - dobby loom chain pegger Hx Respiratory Tract Infection No 07/05/24 09:01 STOP Sleep Apnea STOP Sleep Apnea - dobby loom chain pegger: STOP Sleep Apnea - dobby loom chain pegger Hx Hypertension Yes: controlled with med 07/05/24 09:01 Hx Sleep Apnea Yes 07/05/24 09:01 CPAP Yes 07/05/24 09:01 BIPAP No 07/05/24 09:01 Do you snore loudly (louder than talking or can be heard Do you often feel tired/ fatigued/ sleepy during daytime? Has anyone observed you stop breathing during sleep? STOP Results Positive 07/05/24 09:01 QUESTION #5 FULL TEXT : Do you snore loudly (louder than talking or can be heard through closed doors)? 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 Specify any problems Hx of Preganancy in last 3 N/A 07/05/24 09:01 Months Nurse Filling Out Transfusion NBUCHER 07/05/24 09:01 & Questions: Date: 07/05/24 07/05/24 09:01 Time: 09:02 07/05/24 09:01 Patient unable to answer at this time (ie. confused, unrespo /Reproduction History /Reproductive History - dobby loom chain pegger: /Reproductive Hx- dobby loom chain pegger Hx Now No 07/05/24 09:01 Gestational Age (in weeks): EDC: Hx Hx Para Hx Section SAB No 07/05/24 09:01 [facility] Medical History (Updated 07/05/24 @ 09:08 by Camila Cartagena) Loss of hearing Wears glasses Cancer Gout Arthritis History of GI bleed History of diverticulosis Shortness of breath on exertion CPAP (continuous positive airway pressure) dependence Sleep apnea History of stress test History of echocardiogram Cardiology follow-up encounter Mixed hyperlipidemia Thoracic aortic aneurysm without rupture JO ANN (obstructive sleep apnea) Essential hypertension GERD (gastroesophageal reflux disease) Atherosclerosis of [place] coronary artery of [place] heart without angina pectoris Obesity Breathing-related sleep disorder COPD (chronic obstructive pulmonary disease) Lung nodule Snoring Carotid bruit Aortic valve, bicuspid Aortic aneurysm, thoracic Aortic valve disease Hypokalemia Home Medications ?Medication ?Instructions ?Recorded ?Last Taken ?Type aspirin 81 mg tablet,delayed 81 mg PO QDAY heart [facility] 08/05/17 09/06/22 History release (Ecotrin Low Strength) cetirizine 10 mg capsule 10 mg PO HS allergy #100 caps 10/15/22 Unknown Rx ramipril 10 mg capsule 10 mg PO QDAY b/p #90 caps 08/11/23 Unknown Rx spironolactone 50 mg tablet 50 mg PO QDAY diuretic #90 tabs 08/11/23 Unknown Rx (Aldactone) montelukast 10 mg tablet 10 mg PO QPM allergies #90 tabs 11/08/23 Unknown Rx warfarin 1 mg tablet 2 mg PO .COMPLEX 02/11/24 Unknown History warfarin 3 mg tablet 3 mg PO DAILY 02/11/24 Unknown History warfarin 5 mg tablet 5 mg PO QDAY 02/11/24 Unknown History metoprolol succinate 25 mg 25 mg PO QDAY Dose decreased to 25 03/21/24 Unknown Rx tablet,extended release 24 hr mg daily #90 tabs Disability Placard #1 ea 05/11/24 Unknown Rx dupilumab 300 mg/2 mL subcutaneous 300 mg (2 mL) subcut Q2W #4 mL 06/01/24 Unknown Rx pen injector (Dupixent) Allergy/AdvReac Type Severity Reaction Status Date / Time Penicillins Allergy Unknown Verified 07/05/24 08:57 Family History Father , age 60 Myocardial infarction Hypertension Mother CAD (coronary artery disease) Hypertension HLD (hyperlipidemia) Brother Hypertension Sister Cancer Bone Cancer Other H/O aortic valve replacement History of mechanical aortic valve replacement Surgical History (Updated 07/05/24 @ 09:08 by Camila Cartagena) History of carpal tunnel surgery of right wrist (~2021) History of esophagogastroduodenoscopy (EGD) History of colonoscopy History of surgery History of carpal tunnel surgery of left wrist (~2022) History of mechanical aortic valve replacement (~06/2004) History of right and left heart catheterization History of left heart catheterization (LHC) H/O aortic valve replacement Social History Smoking Status: Never smoker alcohol intake: current alcohol intake frequency: holidays/special occasions only Alcohol type: beer and wine substance use type: does not use caffeine: Yes Type: coffee Number of servings: 3 what type of physical activity do you participate in: none seatbelt use: always do you feel safe at home: Yes Audit: Pertinent Findings Pertinent Findings EKG Perinent findings: Normal sinus rhythm rate 89 bpm 09/07/2022 Echo (EF%) pertinent findings: 03/07/2024 ejection fraction 65% stable appearing mechanical aortic valve Consult pertinent findings: Cardiology visit 12 backup cardiology visit 02/11/2024 thoracic aortic aneurysm without rupture currently 4.3 cm diameter ascending thoracic aorta to history of mechanical aortic valve replacement mild coronary artery disease check echocardiogram Recommendation Anesthesia Recommendation Anesthesia recommendation: OPTIMIZED for anesthesia
--- NOTE | 2024-07-10 07:02 | EKG12_ITS ---
Test Reason : PREOP Blood Pressure : */* mmHG Vent. Rate : 74 BPM Atrial Rate : 74 BPM P-R Int : 216 ms QRS Dur : 172 ms QT Int : 454 ms P-R-T Axes : -11 32 49 degrees QTcB Int : 503 ms Sinus rhythm with 1st degree A-V block Right bundle branch block Abnormal ECG Confirmed by DARIA DOE, ESTEFANY ([id number]), web content editor OSIEL ARIAS ([id number]) on 07/10/2024 8:58:00 AM Referred By: Aguila Gleason Confirmed By: ESTEFANY HUFF MD
--- NOTE | 2024-07-10 07:05 | RAD_ITS ---
STUDY: X-RAY CHEST REASON FOR EXAM: Male, 69 years old. preop TECHNIQUE: PA and lateral views of the chest. COMPARISON: 09/07/2022 FINDINGS: Status post median sternotomy with heart valve replacement. The lungs are clear and expanded. Elevated left hemidiaphragm which is unchanged. Normal size heart. Normal mediastinum and elias. Normal visualized pulmonary arteries. Normal visualized aortic arch and descending thoracic aorta. Normal visualized thoracic spine. Normal visualized ribs, clavicles, and shoulders. There is no demonstrated abnormality of the visualized soft tissue structures of the upper abdomen. RAD/Chest PA and Lateral IMPRESSION: No active disease. Electronically Signed: Kurt Watson MD at 13:12 EST ,
[2024-07-10 07:21] LABS: International Normalized Ratio 2.7; Prothrombin Time (Protime)PT. 28.9 SECONDS (11.7-14.9)
[2024-07-10 07:31] LABS: Absolute Neutrophil Count 5.7 X10^3/uL (2.0-7.7); Basophil# 0.07 X10^3/uL; Basophil% 0.8 % (0-1); Eosinophil# 0.16 X10^3/uL; Eosinophils% 1.8 % (0-5); Hematocrit 50.2 % (40-54); Hemoglobin 17.5 g/dL (13.0-16.5); Lymphocyte % 22.5 % (19-41); Mean Corp Hgb Conc 34.9 g/dL (32-36); Mean Corpuscular Hgb 32.6 pg (27.0-32.0); Mean Corpuscular Volume 93.5 fL (80-94); Mean Platelet Vol. 10.8 fl (6.2-12.0); Monocyte# 0.83 X10^3/uL; Monocyte% 9.3 % (0-10); NRBC Flagged by Analyzer 0 % (0-5); Neutrophil # 5.72 X10^3/uL (2.7-7.7); Neutrophil % 64.3 % (47-70); Platelet Count 197 K/mm3 (150-450); RBC Distribution Width CV 13.2 % (11.6-14.6); RBC Distribution Width SD 44.7 fl (35.1-43.9); Red Blood Count 5.37 M/mm3 (4.6-6.2); White Blood Count 8.9 K/mm3 (4.4-11.0)
[2024-07-10 07:44] LABS: Anion Gap 6 (5-15); BUN 20 mg/dL (7-18); BUN/Creat Ratio 16.4 RATIO (10-20); Calcium,Total 9.1 mg/dL (8.5-10.1); Chloride 108 mmol/L (98-107); Creatinine, Serum 1.22 mg/dL (0.70-1.30); EST Glomerular Filtration Rate 62 mL/min (>60); Est Glom Filt Rate - Afr Amer 76 mL/min (>60); Glucose 115 mg/dL (74-106); Potassium 4.1 mmol/L (3.5-5.1); Sodium Level 138 mmol/L (136-145)
[2024-07-10 07:48] LABS: Magnesium 1.9 mg/dL (1.6-2.6)
[2024-07-31] VITALS (17 sets, daily range): BP systolic 111–148; BP diastolic 49–90; PULSE 77–98; RESP 16–18; TEMP 36.1–37.4; O2SAT 92–95; BMI 41.2
[2024-07-31] MEDS: Magnesium 2 GM for ERAS IV (06:08)
[2024-07-31] MEDS: 0.9% Normal Saline (1000mL) 1,000 ML 15 ML IV ×2 (06:08→10:40)
[2024-07-31] MEDS: Gabapentin 600 MG Tablet PO (06:09)
[2024-07-31] MEDS: Acetaminophen 500 MG Tablet 1000 MG PO ×3 (06:09→20:36)
[2024-07-31 06:35] LABS: INR Fingerstick 1.7; Prothrombin Time Fingerstick 19.1 SEC (11.7-14.9)
--- NOTE | 2024-07-31 06:58 | PCM.PRE.AN2 ---
ASA Classification* ASA Classification ASA Classification: 3 Assessment & Plan Anesthesia* Anesthesia Assessment Anesthesia Assessment: Discussed sedation and/or anesthesia options, risks, benefits, and alternatives with patient/parents/legal guardian/POA. Questions invited. The patient/parents/legal guardian/POA seems to understand and agrees to proceed with anesthesia plan. Reviewed the physical assessment, medical history, allergy history and patient home medications list prior to surgery/procedure/anesthetic and documented any changes. Performed airway and anesthesia risk assessments. Anesthesia Type Anesthesia Type: Spinal (If INR elevated then GA) and Block Anesthesia Focused Assessment* Temperature: 98.6 F Pulse Rate: 77 Blood Pressure: 112/78 Respiratory Rate: 16 Pulse Ox: 94 Airway Assessment Mouth opens: >3 cm Mallampati Score: II Focused Labs Anesthesia Preop lab: CBC WBC 8.9 K/mm3 (4.4-11.0) 07/10/24 06:49 RBC 5.37 M/mm3 (4.6-6.2) 07/10/24 06:49 Hgb 17.5 g/dL (13.0-16.5) H 07/10/24 06:49 Hct 50.2 % (40-54) 07/10/24 06:49 Plt Count 197 K/mm3 (150-450) 07/10/24 06:49 CHEMISTRY Potassium 4.1 mmol/L (3.5-5.1) 07/10/24 06:49 Sodium 138 mmol/L (136-145) 07/10/24 06:49 Magnesium 1.9 mg/dL (1.6-2.6) 07/10/24 06:48 BUN 20 mg/dL (7-18) H 07/10/24 06:49 Creatinine 1.22 mg/dL (0.70-1.30) 07/10/24 06:49 Glucose 115 mg/dL (74-106) H 07/10/24 06:49 COAG PT 28.7 SECONDS (11.7-14.9) H 07/25/24 12:51 INR 5.1 H* 02/16/18 17:30 Pre-Assessment Diagnosis/Proposed Procedure Planned Operative Procedure(s): (R) ROBOTIC ASSISTED RIGHT TOTAL KNEE ARTHROPLASTY Anesthesia History Anesthesia History - building code administrator: Anesthesia History - building code administrator Hx Hospitalization No 07/05/24 09:01 Any Problems With Anesthesia No 07/05/24 09:01 Cholinesterase deficiency No 07/05/24 09:01 You/Your Family Experience No 07/05/24 09:01 fever (hyperthermia) with Relationship Recent Exposure to Contagious No 07/31/24 05:58 Disease Does patient have nerve No 07/05/24 09:01 stimulator Patient instructed to have device shut off --Does patient have Pacemaker No 07/31/24 05:58 or ICD? When Was Last Pacemaker Check QUESTION #4 FULL TEXT: You/Your Family Experience fever (hyperthermia) with Anesthesia Last Oral Intake Last Oral intake: Last Oral Intake NPO since 00:00 07/31/24 05:58 Meds taken in AM with sips of water? Meds patient instructed to take am of surgery PONV PONV - building code administrator: PONV - building code administrator Female No 07/05/24 09:01 HX of Motion Sickness No 07/05/24 09:01 HX of N/V After Surgery No 07/05/24 09:01 Non-Smoker Yes 07/05/24 09:01 Duration of Surgery greater Yes 07/05/24 09:01 than 60 minutes Number of Risk Factors 2 07/05/24 09:01 PONV Score Moderate Risk 07/05/24 09:01 Height & Weight Height & Weight: Anesthesia: Height & Weight Height 5 ft 9 in 07/31/24 05:58 Weight: 126.552 kg 07/31/24 05:58 Body Mass Index (BMI) 41.2 07/31/24 05:58 Respiratory Assessment Respiratory Assessment - building code administrator: Respiratory Tract Infection Hx - building code administrator Hx Respiratory Tract Infection No 07/05/24 09:01 STOP Sleep Apnea STOP Sleep Apnea - building code administrator: STOP Sleep Apnea - building code administrator Hx Hypertension Yes: controlled with med 07/21/24 13:17 Hx Sleep Apnea Yes 07/05/24 09:01 CPAP Yes 07/21/24 13:17 BIPAP No 07/21/24 13:17 Do you snore loudly (louder than talking or can be heard Do you often feel tired/ fatigued/ sleepy during daytime? Has anyone observed you stop breathing during sleep? STOP Results Positive 07/05/24 09:01 QUESTION #5 FULL TEXT : Do you snore loudly (louder than talking or can be heard through closed doors)? Tobacco Use History Tobacco Use History - building code administrator: Tobacco Use History - building code administrator Tobacco Use Smoking Status Never smoker 07/05/24 09:01 Hx Tobacco Use No 07/05/24 09:01 Years Smoking Packs Smoked per Day Smoking Cessation Date was within the last 15 years Hx Smoking Cessation Date Hx Smoking Cessation Counseling Hematologic Medial History Hematologic Hx - building code administrator: Hematologic Medical Hx - seed cone picker Hx of Blood Transfusion No 07/05/24 09:01 Hx of Transfusion in last 3 No 07/05/24 09:01 Months Date of Last Transfusion (if within last 3 months) Ever experience any problems No 07/05/24 09:01 with transfusion(s)? Specify any problems Hx of Preganancy in last 3 N/A 07/05/24 09:01 Months Nurse Filling Out Transfusion NBUCHER 07/05/24 09:01 & Questions: Date: 07/05/24 07/05/24 09:01 Time: 09:02 07/05/24 09:01 Patient unable to answer at this time (ie. confused, unrespo /Reproduction History /Reproductive History - building code administrator: /Reproductive Hx- building code administrator Hx Now No 07/05/24 09:01 Gestational Age (in weeks): EDC: Hx Hx Para Hx Section SAB No 07/05/24 09:01 Active Medications Active Medications: Current Medications Generic Name Dose Route Start Last Admin Trade Name Freq PRN Reason Stop Dose Admin Acetaminophen 1,000 mg 07/31/24 07:30 07/31/24 06:09 Acetaminophen 500 Mg Tablet PO 07/31/24 07:31 1,000 mg X1 ONE Administration Sodium Chloride 77.4 ml/ 0 ml 07/31/24 07:30 Ropivacaine 200 mg/ OPERA.SITE 07/31/24 07:31 Epinephrine HCl 0.6 mg/ X1 ONE Ketorolac Tromethamine 30 mg/ Morphine Sulfate 5 mg Dexamethasone Sodium Phosphate 10 mg 07/31/24 07:30 Dexamethasone 10 Mg/Ml Vial IV 07/31/24 07:31 X1 ONE Gabapentin 600 mg 07/31/24 07:30 07/31/24 06:09 Gabapentin 600 Mg Tablet PO 07/31/24 07:31 600 mg X1 ONE Administration Magnesium Sulfate 2 gm/ 104 mls @ 208 mls/hr 07/31/24 07:30 07/31/24 06:08 Dextrose IV 07/31/24 07:59 208 mls/hr X1 ONE Administration Tranexamic Acid 1,000 mg/ 110 mls @ 660 mls/hr 07/31/24 07:30 Sodium Chloride IV 07/31/24 07:39 X1 ONE Tranexamic Acid 1,000 mg/ 110 mls @ 660 mls/hr 07/31/24 07:30 Sodium Chloride IV 07/31/24 07:39 X1 ONE Cefazolin Sodium 3 gm/ N/A 30 mls @ 600 mls/hr 07/31/24 07:30 IV 07/31/24 07:32 PREOP ONE Sodium Chloride 1,000 mls @ 15 mls/hr 07/31/24 05:40 07/31/24 06:08 IV 08/05/24 18:59 15 mls/hr .Q48H ROSA Administration Protocol Insulin Human Lispro 1 - 6 unit 07/31/24 07:30 Insulin Lispro 100 Unit/Ml Insuln.Pen SC Q4H PRN PRN BG>/= 180, SEE PROTOCOL Protocol PFSH Medical History Loss of hearing Wears glasses Cancer Gout Arthritis History of GI bleed History of diverticulosis Shortness of breath on exertion CPAP (continuous positive airway pressure) dependence Sleep apnea History of stress test History of echocardiogram Cardiology follow-up encounter Mixed hyperlipidemia Thoracic aortic aneurysm without rupture JO ANN (obstructive sleep apnea) Essential hypertension GERD (gastroesophageal reflux disease) Atherosclerosis of [place] coronary artery of [place] heart without angina pectoris Obesity Breathing-related sleep disorder COPD (chronic obstructive pulmonary disease) Lung nodule Snoring Carotid bruit Aortic valve, bicuspid Aortic aneurysm, thoracic Aortic valve disease Hypokalemia Home Medications ?Medication ?Instructions ?Recorded ?Last Taken ?Type aspirin 81 mg tablet,delayed 81 mg PO QDAY [employer] 08/05/17 07/29/24 History release (Ecotrin Low Strength) cetirizine 10 mg capsule 10 mg PO HS allergy #100 caps 10/15/22 07/30/24 Rx ramipril 10 mg capsule 10 mg PO QDAY b/p #90 caps 08/11/23 07/30/24 Rx spironolactone 50 mg tablet 50 mg PO QDAY diuretic #90 tabs 08/11/23 07/30/24 Rx (Aldactone) montelukast 10 mg tablet 10 mg PO QPM allergies #90 tabs 11/08/23 07/30/24 Rx warfarin 1 mg tablet 2 mg PO .COMPLEX 02/11/24 07/25/24 History warfarin 3 mg tablet 3 mg PO DAILY 02/11/24 Unknown History warfarin 5 mg tablet 5 mg PO QDAY 02/11/24 Unknown History metoprolol succinate 25 mg 25 mg PO QDAY Dose decreased to 25 03/21/24 07/30/24 08:30 Rx tablet,extended release 24 hr mg daily #90 tabs Disability Placard #1 ea 05/11/24 Unknown Rx dupilumab 300 mg/2 mL subcutaneous 300 mg (2 mL) subcut Q2W #4 mL 06/01/24 07/30/24 Rx pen injector (Dupixent) budesonide 160 mcg-glycopyr 9 2 inh inhalation .qday 07/31/24 Unknown History mcg-formot 4.8 mcg/actuation HFA inhaler (Breztri Aerosphere) Allergy/AdvReac Type Severity Reaction Status Date / Time Penicillins Allergy Unknown Verified 07/31/24 05:55 Family History Father , age 60 Myocardial infarction Hypertension Mother CAD (coronary artery disease) Hypertension HLD (hyperlipidemia) Brother Hypertension Sister Cancer Bone Cancer Other H/O aortic valve replacement History of mechanical aortic valve replacement Surgical History History of carpal tunnel surgery of right wrist (~2021) History of esophagogastroduodenoscopy (EGD) History of colonoscopy History of surgery History of carpal tunnel surgery of left wrist (~2022) History of mechanical aortic valve replacement (~06/2004) History of right and left heart catheterization History of left heart catheterization (LHC) H/O aortic valve replacement Social History Smoking Status: Never smoker alcohol intake: current alcohol intake frequency: holidays/special occasions only Alcohol type: beer and wine substance use type: does not use caffeine: Yes Type: coffee Number of servings: 3 what type of physical activity do you participate in: none seatbelt use: always do you feel safe at home: Yes Review of Systems (Anesthesia) ROS Narrative System reviewed and no additional complaints, except as documented.
[2024-07-31 07:22] LABS: Bedside Glucose 103 mg/dL (74-106)
--- NOTE | 2024-07-31 07:30 | KNEE_PTH ---
PATIENT: ABDIAS ROMO LOC: MS3 U#:[id number] AGE/SX: 69/M ROOM: [facility] [place] RE07/31/[address]: Dr. Aguila Gleason DO : 1955 BED: 1 DIS: 08/01/2024 SPEC #: [id number] RECD: 07/31/24 10:04 STATUS: TOLU RADHA #: [id number] ZENIA: 07/31/24 07:[address]: Aguila Gleason DEPT: SURGICAL PATHOLOGY RECD BY: Major Ford ENTERED: 07/31/24 10:47 SP TYPE: TOTAL KNEE OTHR DR: MD Dr. Sindhu Ventura MD Tissues: Knee, NOS Procedures: Decalcification bone/plaque Surgery Specimen Level IV HEADER OPERATION: Robotic assisted right total knee arthroplasty PRE-OP DIAGNOSIS: Grade 4 primary osteoarthritis right knee TISSUE SUBMITTED: Right patella MICROSCOPIC DIAGNOSIS Bone and soft tissue, right knee, total knee replacement/resection: Pieces of bone with degenerative osteoarthritic changes. SJ: 08/03/2024 MICROSCOPIC DESCRIPTION Slides are reviewed. GROSS DESCRIPTION Received is one container designated bone and soft tissue right knee. The specimen consists of multiple fragments of arias-yellow bone measuring in aggregate 11.0 x 11.0 x 4.0 cm. No soft tissue is identified. A number of bony fragments contain articular surfaces consistent with tibial plateau and femoral condyle and displaying prominent osteophyte formation, eburnation and bone erosion. Grip sections are submitted in one cassette after decalcification. / JAMILAH. 07/31/2024 TC:5 CPT: 89398, 69745
[2024-07-31] MEDS: TXA 1000mg in NS100 100ml (IVPB at Incision) 660 MG IV (07:40)
[2024-07-31] MEDS: dexAMETHasone 10 MG/ML Vial IV (07:46)
[2024-07-31] MEDS: Cefazolin 3 GM in Syringe 1 EACH IV (07:48)
[2024-07-31] MEDS: TXA 1000mg in NS100 100ml (IVPB at Closure) 660 MG IV (08:47)
[2024-07-31] MEDS: JPS (Morphine 10mg/ml) OPERA.SITE (08:57)
--- NOTE | 2024-07-31 09:29 | PCM.OPRPT ---
Operative Report (Standard) Operative Information Date of Procedure: 07/31/24 Pre-Operative Diagnosis: Right knee osteoarthritis Post-Operative Diagnosis: Right knee osteoarthritis Surgery/Procedure Performed: Robotic arm assisted right total knee arthroplasty human services professional: Yes [place] Operator: Dolores Marte Tasks completed by machinist first class: Opening & closing, Implanting device, Hemostasis: Electrocautery and Retracting Additional urgent care physician assistant?: No Type of Anesthesia: General RN Documented Start/Stop Times: Operation Date: 07/31/24 07:30 Case Time Into Pre-Op 07/31/24 05:36 Out of Pre-Op 07/31/24 07:28 Anesthesia Start 07/31/24 07:30 Into Room 07/31/24 07:30 Procedure Start 07/31/24 07:55 Procedure End 07/31/24 09:13 Anesthesia End 07/31/24 09:18 Out of Room 07/31/24 09:18 Into Recovery 07/31/24 09:20 Procedure Start Time: 07:55 Procedure Stop Time: 09:13 Select all DRAINS/GRAFTS/IMPLANTS that apply: Implanted device Implanted device details: [employer] press-fit CR triathlon femur size #5, triathlon press-fit tibial component size #5, triathlon CS polyethylene 11 mm Estimated Blood Loss: 50 cc Specimen collected: Yes Description of specimen(s) removed: Right total knee resections Description of surgery: Patient was identified in the preoperative holding area by name, medical record number, and date of . Informed consent was confirmed with the patient. The operative knee was marked with a surgical marker. At time of his procedure, patient brought to the operative suite and positioned supine a standard operating table. General anesthesia was induced and LMA placed. All bony prominences were well-padded. We then placed a well-padded pneumatic tourniquet on the right upper thigh. The right upper extremity was brought across patient's chest throughout the procedure. We then prepped and draped the right lower extremity in a normal, sterile orthopedic fashion. We performed a timeout with all parties in attendance in agreement with the side, site, operation be performed. No concerns were voiced and would like to proceed with surgery. 3 g Ancef was administered prior to the incision by anesthesia staff as well as 1 g IV TXA. First exsanguinated the right lower extremity with a Esmarch bandage. Tourniquet was inflated to 250 mmHg for 51 minutes. Esmarch was removed. I planned a standard midline approach to the right knee approximately 15 cm in length. Skin was sharply incised with a 10 blade scalpel developing full-thickness layers down to the retinaculum. Layers were developed identifying the VMO. I then planned a standard medial parapatellar arthrotomy performed in flexion. The anterior horn of the medial meniscus was released. Hoffa's fat pad was then released. I then everted the patella in extension and brought the knee into 90 degrees of flexion. The anterior horn of the lateral meniscus was then released. The ACL was split in its mid substance with a 10 blade. We then brought the knee back into extension. The patella was everted. Patella demonstrated grade I chondromalacia without osteophytes. Elected to leave the patella [place] without resurfacing. Checkpoints were placed in the tibia and femur in standard fashion. I then placed pins in the metaphyseal distal femur medial to lateral for the Giovani arrays. In similar fashion, I made a 2 cm incision approximately a handsbreadth distal to the tibial tubercle along the medial aspect of the tibia, drilling 2 bicortical pins for the tibial array. The knee was brought into flexion. The patella was subluxed laterally but not everted. Medial lateral retractors were placed. We then utilized the Intigua software to confirm our planned surgical procedure and oriented with the patient's osseous anatomy. All checks with the Intigua system were confirmed. No significant deformity was noted. Standard cuts were made. Sawblade was then brought in. I first started with the tibial cut, ensuring protection of the MCL and patellar tendon. A tibial wafer was then excised. I then proceeded to make the posterior femoral, anterior, anterior chamfer cuts with the same blade. Ligaments were protected with [employer] retractors. Sawblade was then exchanged to perform the distal femoral and posterior chamfer cuts. The robot was then removed from the surgical field. Remaining loose bone and meniscus was excised carefully. Posterior osteophytes were removed from the distal femur with a curved osteotome and rongeur. Trial components were then placed. Balance was excellent in both extension and 90 degrees flexion with an 11 mm polyethylene. No mid flexion instability was apparent. Tracking was excellent. We then marked for tibial baseplate. Distal femoral pegs were drilled. Tibial keel was punched. Press-fit drill guide was placed and drilled. Periarticular block was administered. The wound was copiously irrigated with normal saline solution. Tibial and femoral components were then press-fit in standard fashion with excellent pullout strength. Tourniquet was deflated. Hemostasis achieved with Bovie cautery. 11 mm polyethylene was then placed and impacted per manufacture recommendations. Final components appeared very well balanced with excellent range of motion. 3-minute dilute sterile Betadine soak was performed. The wound was copiously irrigated with normal saline solution. Capsule was closed watertight with #1 strata fix barbed suture. Deeper bursal layer was reapproximated with 0 Vicryl suture. Dermis was reapproximated buried interrupted 2-0 Vicryl suture. Skin was finally reapproximated sebastian. Patient tolerated the procedure well without apparent complication. He was safely awakened in the operative suite, transferred to his hospital bed and subsequently to PACU in stable condition. Need for skilled urgent care physician assistant: Dolores Marte PA-C was critical to the outcome of the case. During the course of the procedure the physician urgent care physician assistant played a vital role. Her intimate knowledge of my steps in the procedure aided in safe and expedient completion of the procedure. The PA played a vital role in positioning particularly in obtaining the appropriate positioning. The PA was also vital in the retraction of soft tissues during the exposure and projecting vital structures. The PA was also vital and protecting soft tissues during times of bony cuts. She also played a vital role in closure with my direct supervision. The PA was also important during reduction and dislocation of the joint and trials intraoperatively. Post Operative Plan: Patient will be placed in observation overnight for medical monitoring and early convalescence. Weightbearing: Range of motion and weightbearing as tolerated right lower extremity. Antibiotics: Ancef 1 g every 8 hours x 3 doses, plan for 1 week oral doxycycline prophylactic due to elevated BMI DVT Prophylaxis: Restart Coumadin postoperative day #1 [place]: None Dressing: Maintain silver dressing x5 days X-Rays: 2-week x-rays in the office. Follow-up: 2 weeks in my office for staple removal Surgical Findings: Stable right knee following final implantation of components with good balance. Excellent tracking. Complications Complications: No Admit VTE Documentation VTE Present on Admission: No VTE Mechan Device Prophylaxis: SCD's and Thigh High BABATUNDE Hose VTE Pharm Prophylaxis ordered?: Yes
--- NOTE | 2024-07-31 09:40 | RAD_ITS ---
STUDY: X-RAY - RIGHT KNEE REASON FOR EXAM: Male, 69 years old. Post op -- AP and Lateral xray of operative knee in PACU TECHNIQUE: 2 views of the right knee. COMPARISON: None. FINDINGS: There are new postoperative changes related to right total knee arthroplasty with patellar resurfacing. There is a vertical staple line along the anterior aspect of the knee. There is gas in the patellofemoral joint recess and anterior soft tissues, compatible with recent surgery. The orthopedic hardware components are intact. There is no periprosthetic fracture. Normal proximal tibiofibular articulation. RAD/Knee 1 or 2 Views IMPRESSION: New postoperative changes related to right total knee arthroplasty. Electronically Signed: Urbano Lagos MD at 10:17 EST ,
--- NOTE | 2024-07-31 10:15 | PCM.POST.ANE ---
Anesthesia: Postop Eval I Current Vital Signs Temperature: 97 F Pulse Rate: 92 Blood Pressure: 123/71 Respiratory Rate: 16 Pulse Ox: 93 Oxygen Delivery Method: Nasal Cannula Oxygen Flow Rate (L/min): 4 Assessment Airway patent: Yes Spontaneous unlabored respirations: Yes Mental status: Awake nausea: No Vomiting: No Anesthesia Complication: No Fluid Hydration Crystalloid volume administer (ml): 500 Total IV fluid infused: 500 Progress Note Anesthesia document: Postop Eval 1 completed: Yes
--- NOTE | 2024-07-31 10:34 | PCM.POSTANE2 ---
Anesthesia Postop Eval I Sum Postop Eval Completion status Anesthesia document: Postop Eval 1 completed: Yes Anesthesia Postop Eval I Summary Anesthesia Postop Eval I Summary: Anesthesia Postop Eval I: Assessment Summary Airway patent Yes 07/31/24 10:34 Spontaneous unlabored Yes 07/31/24 10:34 respirations Mental status Awake 07/31/24 10:34 nausea No 07/31/24 10:34 Vomiting No 07/31/24 10:34 Anesthesia Postop Eval I: Fluid Summary Crystalloid volume administer 500 07/31/24 10:34 (ml) Colloids volume administered ( ml) Blood Product volume administered (ml) Total IV fluid infused 500 07/31/24 10:34 Anesthesia Postop Eval I: Summary Notes Anesthesia Complication No 07/31/24 10:34 Anesthesia Complication Comment: Post-operative progress note Anesthesia: Postop Eval II Evaluation Mental status: Awake Pain Level: 3 nausea: No Vomiting: No
--- NOTE | 2024-07-31 13:27 | PCM.CONS.GEN ---
Assessment & Plan Assessment/Plan (1) H/O aortic valve replacement: (2) JO ANN (obstructive sleep apnea): PLAN: Plan This 69-year-old gentleman was admitted after elective right total knee arthroplasty 1. Right knee primary osteoarthritis : Patient is being every medicine floor. Had robotic arm assisted right total knee arthroplasty on 07/31/2024. Surgical dressing is dry. PT OT. Incentive spirometry and Pep. Bowel and bladder care. Warfarin is resumed. 2. Patient has chronic persistent asthma, obstructive sleep apnea on BiPAP: Follows pulmonary clinic. Patient on BiPAP 14/8 cm water. Patient on maximal therapy of Breztri and Dupixent at outpatient setting. 3. Chronic aortic stenosis status post [place] mechanical valve in June 2004, thoracic aortic aneurysm without rupture, atherosclerotic heart disease without angina: Patient follows in [place] cardiology with Dr. Kenton Stroud and Alberto Palma. 2D echo reviewed. EF 65% with stable appearing mechanical aortic valve apparatus. Twelve-lead EKG reviewed. Sinus rhythm, 74 bpm, first-degree block, chronic RBBB. Continue home medication. Warfarin has been continued. INR 1.7 today. INR tomorrow AM. 4. Dyslipidemia: On statin 5. Chron's disease: Follows Dr. Mcgovern. Patient has multiple ulceration with thickening of small bowel. Immunosuppression not recommended as patient on Dupixent. Patient had history of GI bleed in the past but no recent history of GI bleed. Last hemoglobin 17.5. Platelet count 197,000. 6. DVT prophylaxis already on warfarin 2D echo on 03/06/2024 Interpretation Summary The estimated ejection fraction is 65 %. Unable to assess diastolic dysfunction. Stable appearing mechanical aortic valve apparatus. HPI Consult Data Date of Consult: 07/31/24 HPI Narrative HPI Narrative: ABDIAS ROMO, is a 69 M who was admitted after elective robotic assisted right TKR. Patient has right knee primary osteoarthritis. He he had open aortic valve replacement with mechanical valve. Denies any chest pain or shortness of breath. Voided urine after surgery. Had already moved bowel. Currently, no acute issues [facility] Medical History Loss of hearing Wears glasses Cancer Gout Arthritis History of GI bleed History of diverticulosis Shortness of breath on exertion CPAP (continuous positive airway pressure) dependence Sleep apnea History of stress test History of echocardiogram Cardiology follow-up encounter Mixed hyperlipidemia Thoracic aortic aneurysm without rupture JO ANN (obstructive sleep apnea) Essential hypertension GERD (gastroesophageal reflux disease) Atherosclerosis of [place] coronary artery of [place] heart without angina pectoris Obesity Breathing-related sleep disorder COPD (chronic obstructive pulmonary disease) Lung nodule Snoring Carotid bruit Aortic valve, bicuspid Aortic aneurysm, thoracic Aortic valve disease Hypokalemia Home Medications ?Medication ?Instructions ?Recorded ?Last Taken ?Type aspirin 81 mg tablet,delayed 81 mg PO QDAY heart health 08/05/17 07/29/24 History release (Ecotrin Low Strength) cetirizine 10 mg capsule 10 mg PO HS allergy #100 caps 10/15/22 07/30/24 Rx ramipril 10 mg capsule 10 mg PO QDAY b/p #90 caps 08/11/23 07/30/24 Rx spironolactone 50 mg tablet 50 mg PO QDAY diuretic #90 tabs 08/11/23 07/30/24 Rx (Aldactone) montelukast 10 mg tablet 10 mg PO QPM allergies #90 tabs 11/08/23 07/30/24 Rx warfarin 1 mg tablet 2 mg PO .COMPLEX 02/11/24 07/25/24 History warfarin 3 mg tablet 3 mg PO DAILY 02/11/24 Unknown History warfarin 5 mg tablet 5 mg PO QDAY 02/11/24 Unknown History metoprolol succinate 25 mg 25 mg PO QDAY Dose decreased to 25 03/21/24 07/30/24 08:30 Rx tablet,extended release 24 hr mg daily #90 tabs Disability Placard #1 ea 05/11/24 Unknown Rx dupilumab 300 mg/2 mL subcutaneous 300 mg (2 mL) subcut Q2W #4 mL 06/01/24 07/30/24 Rx pen injector (Dupixent) budesonide 160 mcg-glycopyr 9 2 inh inhalation .qday 07/31/24 Unknown History mcg-formot 4.8 mcg/actuation HFA inhaler (Breztri Aerosphere) Allergy/AdvReac Type Severity Reaction Status Date / Time Penicillins Allergy Unknown Verified 07/31/24 05:55 Family History Father , age 60 Myocardial infarction Hypertension Mother CAD (coronary artery disease) Hypertension HLD (hyperlipidemia) Brother Hypertension Sister Cancer Bone Cancer Other H/O aortic valve replacement History of mechanical aortic valve replacement Surgical History History of carpal tunnel surgery of right wrist (~2021) History of esophagogastroduodenoscopy (EGD) History of colonoscopy History of surgery History of carpal tunnel surgery of left wrist (~2022) History of mechanical aortic valve replacement (~06/2004) History of right and left heart catheterization History of left heart catheterization (LHC) H/O aortic valve replacement Social History Smoking Status: Never smoker alcohol intake: current alcohol intake frequency: holidays/special occasions only Alcohol type: beer and wine substance use type: does not use caffeine: Yes Type: coffee Number of servings: 3 what type of physical activity do you participate in: none seatbelt use: always do you feel safe at home: Yes ROS ROS Narrative Constitutional: No acute fatigue and weakness. No fever. HEENT: Reports systems reviewed and no addt'l complaints, except as documented Respiratory/Chest: Chronic dyspnea on exertion. No acute shortness of breath or respiratory distress or wheezing. CVS: No chest pain/anginal-like pain. Status post AVR. Gastrointestinal: Denies coffee ground emesis, hematemesis or vomiting Genitourinary: Denies burning urination or new urinary tract symptoms Musculoskeletal: Chronic arthritis of right knee. Surgery today Neurologic: Denies seizure-like symptoms. skin: Surgical dressing Endocrinology: Reports systems reviewed and no addt'l complaints, except as documented Hematologic/Lymphatic: Reports systems reviewed and no addt'l complaints, except as documented Rest 14 ROS are negative except as mentioned in HPI Physical Exam Narrative Patient is already moved his bowel before surgery. Had voided urine. No chest pain or shortness of breath Seen and examined General: Alert, Oriented x3, Cooperative HEENT: Atraumatic, PERRLA, EOMI, Normocephalic Oral: No Gingival or Mucosal Lesions/ Ulcerations Neck: Supple, No JVD, Negative Carotid Bruits Chest wall/Lungs: Air entry diminished in bilateral lung bases. No crepitation/rhonchi Cardiovascular: Sinus rhythm, Normal S1, Normal S2, metallic valve click sound Abdomen: Bowel Sounds Present, Soft, Non Tender, Non-Distended : No dysuria. No renal angle tenderness. No suprapubic tenderness. Extremities: No edema, Capillary Refill Less than 3 Seconds Skin: Right TKR. Surgical dressing is dry. Musculoskeletal: No Tenderness to Palpation of Joints or Extremities Neurological: Cranial nerves II-XII grossly intact, DTR 2+/4. No acute focal neurological deficit. Psych/Mental Status: Normal Affect, Appropriate. Lab / Micro Data 07/10/24 06:49 07/10/24 06:49 Labs: Laboratory Results - last 24 hr 07/31/24 05:54: POC Glucose 103 07/31/24 06:34: POC PT 19.1 H, INR 1.7 Imaging Radiology Impression Knee X-Ray 07/31/24 09:40 IMPRESSION: New postoperative changes related to right total knee arthroplasty. Electronically Signed: Urbano Lagos MD at 10:17 EST Reading Location ID and State: [facility] / [place] , Service support , Charges/Coding Visit Charges Office Visits / Consults: 80106 OV L3 New 30min
[2024-07-31] MEDS: Senna/Docusate Sodium 1 Tablet 2 TABLET PO ×2 (14:19→20:36)
[2024-07-31] MEDS: Cefazolin 1 GM/50 ML BAG IV ×2 (14:19→20:37)
[2024-07-31] MEDS: Albuterol 2.5 MG/3 ML VIAL.NEB. INHALATION (19:46)
[2024-07-31] MEDS: Budesonide Respules 0.5 MG/2 ML AMPUL.NEB. INHALATION (19:46)
[2024-07-31] MEDS: Montelukast 10 MG Tablet PO (20:36)
[2024-07-31] MEDS: Loratadine 10 MG Tablet PO (20:37)
[2024-07-31] MEDS: oxyCODONE 5 MG Tablet PO (21:52)
[2024-08-01 00:12] VITALS: BMI 41.2
[2024-08-01 03:52] VITALS: BP 127/80; PULSE 72; RESP 18; TEMP 37; O2SAT 95
[2024-08-01 03:54] VITALS: BMI 41.2
[2024-08-01] MEDS: oxyCODONE 5 MG Tablet PO ×2 (05:52→13:14)
[2024-08-01] MEDS: Acetaminophen 500 MG Tablet 1000 MG PO ×2 (05:53→13:14)
[2024-08-01 06:39] LABS: Hematocrit 42.6 % (40-54); Hemoglobin 14.8 g/dL (13.0-16.5); Mean Corp Hgb Conc 34.7 g/dL (32-36); Mean Corpuscular Hgb 32.8 pg (27.0-32.0); Mean Corpuscular Volume 94.5 fL (80-94); Mean Platelet Vol. 10.9 fl (6.2-12.0); Platelet Count 159 K/mm3 (150-450); Red Blood Count 4.51 M/mm3 (4.6-6.2); White Blood Count 14.9 K/mm3 (4.4-11.0)
[2024-08-01 06:51] LABS: International Normalized Ratio 1.1; Prothrombin Time (Protime)PT. 14.6 SECONDS (11.7-14.9)
[2024-08-01] MEDS: Albuterol 2.5 MG/3 ML VIAL.NEB. INHALATION (07:27)
[2024-08-01] MEDS: Budesonide Respules 0.5 MG/2 ML AMPUL.NEB. INHALATION (07:27)
[2024-08-01 07:29] VITALS: PULSE 71; RESP 16; O2SAT 94
[2024-08-01 07:40] LABS: Anion Gap 5 (5-15); BUN 17 mg/dL (7-18); BUN/Creat Ratio 15.6 RATIO (10-20); Calcium,Total 8.4 mg/dL (8.5-10.1); Chloride 106 mmol/L (98-107); Creatinine, Serum 1.09 mg/dL (0.70-1.30); EST Glomerular Filtration Rate 71 mL/min (>60); Est Glom Filt Rate - Afr Amer 86 mL/min (>60); Estimated Creatinine Clearance 82.99 ml/min; Glucose 127 mg/dL (74-106); Potassium 4.5 mmol/L (3.5-5.1); Sodium Level 137 mmol/L (136-145)
[2024-08-01 08:08] VITALS: BP 132/77; PULSE 78; RESP 16; TEMP 36.7; O2SAT 98
[2024-08-01] MEDS: Spironolactone 50 MG Tablet PO (08:17)
[2024-08-01] MEDS: Senna/Docusate Sodium 1 Tablet 2 TABLET PO (10:09)
[2024-08-01] MEDS: Aspirin E.C. 81 MG Tablet PO (10:10)
[2024-08-01] MEDS: Ramipril 10 MG Capsule PO (10:10)
[2024-08-01 10:11] VITALS: PULSE 78
[2024-08-01] MEDS: Metoprolol(XL)Succ 25 MG Tablet PO (10:11)
--- NOTE | 2024-08-01 10:59 | PCM.PN.ORT ---
Subjective Subjective Patient seen and examined. Denies any new complaints. Pain controlled current pain regimen. He feels nerve block is worn off. He states he was up walking the bajwa with therapy. He feels he is ready for home discharge. Denies any fevers, chills, nausea or vomiting, chest pain or shortness of breath. Urinating without difficulty. Objective Data Objective Data Vital Signs: Vital Signs Temp Pulse Resp BP Pulse Ox O2 Del Method O2 Flow Rate 98.0 F 78 16 132/77 H 98 Room Air 4 08/01/24 08:08 08/01/24 10:11 08/01/24 08:08 08/01/24 08:08 08/01/24 08:08 08/01/24 08:08 07/31/24 10:34 Oxygen Flow Rate (L/min) 4 Oxygen Delivery Method Room Air Weight: 278 lb 15.92 oz Body Mass Index (BMI) 41.2 Intake & Output: Intake and Output for Last 24 Hours 07/30/24 07/31/24 08/01/24 23:59 23:59 23:59 Intake Total 1650.75 / 1650.75 Output Total 600 / 600 Balance 1050.75 / 1050.75 Lab / Micro Data 08/01/24 05:47 08/01/24 05:47 Labs: Laboratory Results - last 24 hr 08/01/24 05:47: WBC 14.9 H, RBC 4.51 L, Hgb 14.8, Hct 42.6, MCV 94.5 H, MCH 32.8 H, MCHC 34.7, RDW Std Deviation 45.0 H, RDW Coeff of Becki 13.0, Plt Count 159, MPV 10.9, PT 14.6, INR 1.1, Sodium 137, Potassium 4.5, Chloride 106, Carbon Dioxide 26.0, Anion Gap 5, BUN 17, Creatinine 1.09, Estim Creat Clear Calc 82.99, Est GFR (MDRD) Af Amer 86, Est GFR (MDRD) Non-Af 71, BUN/Creatinine Ratio 15.6, Glucose 127 H, Calcium 8.4 L Micro: Microbiology 07/10/24 06:49 Swab (Method) Nasal Screen MRSA/MSSA - Final Physical Exam Narrative General - A&Ox3, NAD. VSS/AF Right lower extremity -incisional dressing C/D/I. SILT Sural, Saphenous, SPN, DPN, Tibial N. distributions. DP, PT 2+. BCR. DF, PF, EHL 5/5. No calf TTP. Assessment & Plan Assessment/Plan (1) Presence of total right knee joint prosthesis: PLAN: POD# 1 s/p robotic arm assisted right total knee arthroplasty -Patient doing very well. Discharge home today. Outpatient physical therapy scheduled in 2 days. Extended antibiotic prophylaxis ordered in the form of 7 days of doxycycline. - Pain control - Medicine following for medical management - PT/OT - DVT PPX -Multimodal with restart home Coumadin, SCDs, BABATUNDE hose, early mobilization. Patient has pending lab work later this week from cardiology to monitor his INR. - Case management - D/C planning
--- NOTE | 2024-08-01 11:02 | DCINST_ITS ---
Discharge Instructions DC O2, CPAP, BIPAP needs Home O2 Discharge instructions: No Follow Up Care Test Results: Test results from this visit will be discussed in further detail at your follow- up appointment, if applicable. Discharge Plan Admission Admit Date/Time: 07/31/24 09:29 Attending Provider: Aguila Gleason Primary Care Provider: Sindhu Bird Consulting Providers: Gavin Butts; Hakan Cervantes Instructions Additional Instructions / Restrictions: Follow preprinted instructions from your surgeons office. Follow up INR testing per cardiology later this week Discharge Orders/Prescriptions Prescriptions: New doxycycline hyclate 100 mg capsule 100 mg PO BID 7 Days Qty: 14 0RF Continued aspirin [Ecotrin Low Strength] 81 mg tablet,delayed release (DR/EC) 81 mg PO QDAY warfarin 1 mg tablet 2 mg PO .COMPLEX Protocol: Dose Management Condition: Wednesday Dose/Route: 8 mg Instruction: 1 x 3 mg tablet, 1 x 5 mg tablet Condition: Wednesday Dose/Route: 7 mg Instruction: 2 x 1 mg tablets, 1 x 5 mg tablet Condition: Wednesday Dose/Route: 7 mg Instruction: 2 x 1 mg tablets, 1 x 5 mg tablet Condition: Wednesday Dose/Route: 7 mg Instruction: 2 x 1 mg tablets, 1 x 5 mg tablet Condition: Dose/Route: 7 mg Instruction: 2 x 1 mg tablets, 1 x 5 mg tablet Condition: Wednesday Dose/Route: 7 mg Instruction: 2 x 1 mg tablets, 1 x 5 mg tablet Condition: Wednesday Dose/Route: 7 mg Instruction: 2 x 1 mg tablets, 1 x 5 mg tablet Protocol Text: Adjustment Start Date: Wednesday07/25/24 INR Value: 2.6 INR Date: 07/25/24 Recheck Date: 08/04/24 Rx Instructions: 7 mg daily except on Wednesday take 8 mg or as directed warfarin 3 mg tablet 3 mg PO DAILY Protocol: Dose Management Condition: Wednesday Dose/Route: 8 mg Instruction: 1 x 3 mg tablet, 1 x 5 mg tablet Condition: Wednesday Dose/Route: 7 mg Instruction: 2 x 1 mg tablets, 1 x 5 mg tablet Condition: Wednesday Dose/Route: 7 mg Instruction: 2 x 1 mg tablets, 1 x 5 mg tablet Condition: Wednesday Dose/Route: 7 mg Instruction: 2 x 1 mg tablets, 1 x 5 mg tablet Condition: Dose/Route: 7 mg Instruction: 2 x 1 mg tablets, 1 x 5 mg tablet Condition: Wednesday Dose/Route: 7 mg Instruction: 2 x 1 mg tablets, 1 x 5 mg tablet Condition: Wednesday Dose/Route: 7 mg Instruction: 2 x 1 mg tablets, 1 x 5 mg tablet Protocol Text: Adjustment Start Date: Wednesday07/25/24 INR Value: 2.6 INR Date: 07/25/24 Recheck Date: 08/04/24 Rx Instructions: 7 mg daily except on Wednesday take 8 mg or as directed. warfarin 5 mg tablet 5 mg PO QDAY Protocol: Dose Management Condition: Wednesday Dose/Route: 8 mg Instruction: 1 x 3 mg tablet, 1 x 5 mg tablet Condition: Wednesday Dose/Route: 7 mg Instruction: 2 x 1 mg tablets, 1 x 5 mg tablet Condition: Wednesday Dose/Route: 7 mg Instruction: 2 x 1 mg tablets, 1 x 5 mg tablet Condition: Wednesday Dose/Route: 7 mg Instruction: 2 x 1 mg tablets, 1 x 5 mg tablet Condition: Dose/Route: 7 mg Instruction: 2 x 1 mg tablets, 1 x 5 mg tablet Condition: Wednesday Dose/Route: 7 mg Instruction: 2 x 1 mg tablets, 1 x 5 mg tablet Condition: Wednesday Dose/Route: 7 mg Instruction: 2 x 1 mg tablets, 1 x 5 mg tablet Protocol Text: Adjustment Start Date: Wednesday07/25/24 INR Value: 2.6 INR Date: 07/25/24 Recheck Date: 08/04/24 Rx Instructions: 7 mg daily except on Wednesday take 8 mg or as directed (DME) Disability Placard See Rx Instructions .ROUTE .MEDSUPPLY Qty: 1 0RF Rx Instructions: expires 05/11/2029 Breztri Aerosphere 160-9-4.8 mcg/actuation HFA aerosol inhaler 2 inh inhalation .qday cetirizine 10 mg capsule 10 mg PO HS Qty: 100 3RF spironolactone [Aldactone] 50 mg tablet 50 mg PO QDAY Qty: 90 3RF ramipril 10 mg capsule 10 mg PO QDAY Qty: 90 3RF montelukast 10 mg tablet 10 mg PO QPM Qty: 90 3RF metoprolol succinate 25 mg tablet extended release 24 hr 25 mg PO QDAY Qty: 90 3RF Dupixent Pen 300 mg/2 mL pen injector 300 mg subcut Q2W Qty: 4 12RF Other Ambulatory Orders: 12 Lead EKG (Routine) Timeframe: 20240710 Location: None Selected Ordered By: Dr. Aguila Gleason Referrals / Follow Up: Sindhu Bird MD [Primary Care Provider] - Aguila Gelason DO [Med Staff - Active Staff] - Disposition Disposition (needs filled in before D/C Order can be placed): Home, Self Care
--- NOTE | 2024-08-01 11:07 | CASEMGMT ---
SHAYY BERRIOS Assessment: Face to Face with pt for initial transition planning/care coordination assessment. RN YASH introduced self and role at [facility], pt voices understanding and consents to assessment. Pt is A&O x4 and answers all questions appropriately at this time. Pt sitting up in chair in no distress, souse sitting at bedside. Pt agreeable to answering question with spuse present. Care providers, pharmacy, and demographics verified/updated. Strata: 2 Admitting Dx: Robotic assisted R total Knee Arthroplasty PCP: [facility] Specialists: Amanda Gleason; SARAHI; Rachel Calloway.; Rosmery, Urology Preferred Pharmacy: [facility] Insurance: [facility] Prescription Benefit: yes LNOK: , Amy Living Arrangements: Pt lives with in a 2 story home with 3 steps to enter. ADLs: Pt reports I at baseline. Transportation: Pt drives self and denies concerns with transportation. DME: BiPap, Walker, cane, shower chair HHC/SNF: Denies Hx of Pt states no concerns with going home at time of dc. Pt has OP therapy scheduled at [facility] on 08/03/24. Pt states no further concerns/needs. CM to follow. Advised pt to ask CM if any further question/concerns/needs arise, voices understanding. Pt Goal: Home Plan: Home with family support and OP therapy. Marco Antonio LUCAS CM
--- NOTE | 2024-08-01 11:16 | CASEMGMT ---
Met with pt to complete LINDSEY form. LINDSEY form explained to pt at this time who voiced understanding and signed form. Original form placed in pt?s chart and copy provided to the pt.
--- NOTE | 2024-08-01 11:55 | PN.HOSP_ITS ---
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 (07/31/24) Presence of prosthetic heart valve (07/31/24) Presence of right artificial knee joint (07/31/24) Objective Data Objective Data Vital Signs: Vital Signs Temp Pulse Resp BP Pulse Ox O2 Del Method O2 Flow Rate 98.0 F 78 16 132/77 H 98 Room Air 4 08/01/24 08:08 08/01/24 10:11 08/01/24 08:08 08/01/24 08:08 08/01/24 08:08 08/01/24 08:08 07/31/24 10:34 Oxygen Flow Rate (L/min) 4 Oxygen Delivery Method Room Air Weight: 278 lb 15.92 oz Body Mass Index (BMI) 41.2 Intake & Output: Intake and Output for Last 24 Hours 07/30/24 07/31/24 08/01/24 23:59 23:59 23:59 Intake Total 1650.75 / 1650.75 Output Total 600 / 600 Balance 1050.75 / 1050.75 Lab / Micro Data 08/01/24 05:47 08/01/24 05:47 Labs: Laboratory Results - last 24 hr 08/01/24 05:47: WBC 14.9 H, RBC 4.51 L, Hgb 14.8, Hct 42.6, MCV 94.5 H, MCH 32.8 H, MCHC 34.7, RDW Std Deviation 45.0 H, RDW Coeff of Becki 13.0, Plt Count 159, MPV 10.9, PT 14.6, INR 1.1, Sodium 137, Potassium 4.5, Chloride 106, Carbon Dioxide 26.0, Anion Gap 5, BUN 17, Creatinine 1.09, Estim Creat Clear Calc 82.99, Est GFR (MDRD) Af Amer 86, Est GFR (MDRD) Non-Af 71, BUN/Creatinine Ratio 15.6, Glucose 127 H, Calcium 8.4 L Micro: Microbiology 07/10/24 06:49 Swab (Method) Nasal Screen MRSA/MSSA - Final Physical Exam Narrative No acute issues. Patient is on baseline. Physical exam Seen and examined General: Alert, Oriented x3, Cooperative HEENT: Atraumatic, PERRLA, EOMI, Normocephalic Oral: No Gingival or Mucosal Lesions/ Ulcerations Neck: Supple, No JVD, Negative Carotid Bruits Chest wall/Lungs: Air entry diminished in bilateral lung bases. No crepitation/rhonchi Cardiovascular: Sinus rhythm, Normal S1, Normal S2, metallic valve click sound Abdomen: Bowel Sounds Present, Soft, Non Tender, Non-Distended : No dysuria. No renal angle tenderness. No suprapubic tenderness. Extremities: No edema, Capillary Refill Less than 3 Seconds Skin: Right TKR. Surgical dressing is dry. Musculoskeletal: No Tenderness to Palpation of Joints or Extremities Neurological: Cranial nerves II-XII grossly intact, DTR 2+/4. No acute focal neurological deficit. Psych/Mental Status: Normal Affect, Appropriate. Assessment & Plan Assessment/Plan (1) H/O aortic valve replacement: (2) JO ANN (obstructive sleep apnea): PLAN: Plan This 69-year-old gentleman was admitted after elective right total knee arthroplasty 1. Right knee primary osteoarthritis : Patient is being every medicine floor. Had robotic arm assisted right total knee arthroplasty on 07/31/2024. Surgical dressing is dry. PT OT. Incentive spirometry and Pep. Bowel and bladder care. Warfarin is resumed. 08/01: Patient on warfarin 7 mg daily except on Wednesday when he takes 8 mg daily. INR 1.1 subtherapeutic. Advised to take 10 mg today and tomorrow with daily INR checks and adjust the dose of warfarin accordingly. 2. Patient has chronic persistent asthma, obstructive sleep apnea on BiPAP: Follows pulmonary clinic. Patient on BiPAP 14/8 cm water. Patient on maximal therapy of Breztri and Dupixent at outpatient setting. 3. Chronic aortic stenosis status post [place] mechanical valve in June 2004, thoracic aortic aneurysm without rupture, atherosclerotic heart disease without angina: Patient follows in [place] cardiology with Dr. Kenton Stroud and Alberto Palma. 2D echo reviewed. EF 65% with stable appearing mechanical aortic valve apparatus. Twelve-lead EKG reviewed. Sinus rhythm, 74 bpm, first- degree block, chronic RBBB. Continue home medication. Warfarin has been continued. INR 1.7 today. 4. Dyslipidemia: On statin 5. Chron's disease: Follows Dr. Friend. Patient has multiple ulceration with thickening of small bowel. Immunosuppression not recommended as patient on Dupixent. Patient had history of GI bleed in the past but no recent history of GI bleed. Last hemoglobin 17.5. Platelet count 197,000. 6. DVT prophylaxis already on warfarin 2D echo on 03/06/2024 Interpretation Summary The estimated ejection fraction is 65 %. Unable to assess diastolic dysfunction. Stable appearing mechanical aortic valve apparatus. Charges/Coding Visit Charges Inpatient E&M: 33707 Subs Hosp L2
[2024-08-01 13:20] VITALS: BP 122/74; PULSE 82; RESP 16; TEMP 36.8; O2SAT 96
== END 2024-08-01 14:23 | disposition home or self-care (01) ==
LOC: SDC 11:45 → MS3 11:45
PROVIDERS: Anesthesiology; Internal Medicine; Nurse Practitioner Family; Admitting Provider Student in an Organized Health Care Education/Training Program; PCP Family Medicine; Referring Provider Student in an Organized Health Care Education/Training Program; Visit Provider Student in an Organized Health Care Education/Training Program
PROC: 0SRC0JZ Replacement of Right Knee Joint with Synthetic Substitute, Open Approach (ICD-10-PCS; CPT 27447; principal; 2024-07-31 07:00)
DX: M17.11 Unilateral primary osteoarthritis, right knee (principal); K50.90 Crohn's disease, unspecified, without complications; J44.89 Other specified chronic obstructive pulmonary disease; E78.2 Mixed hyperlipidemia; I25.10 Atherosclerotic heart disease of native coronary artery without angina pectoris; Z95.2 Presence of prosthetic heart valve; I10 Essential (primary) hypertension; G47.33 Obstructive sleep apnea (adult) (pediatric); Z79.01 Long term (current) use of anticoagulants; K21.9 Gastro-esophageal reflux disease without esophagitis; J45.998 Other asthma; Z79.82 Long term (current) use of aspirin; Z79.899 Other long term (current) drug therapy
CPT/HCPCS: 27447; S2900; 01402; 64447; 36415; 36416; 71046; 73560; 80048; 82962; 83735; 85025; 85027; 85610; 87081; 88305; 88311; 93005; 94640; 94668; 94762; 96365; 96366; 97110; 97116; 97162; 97166; 97530; 97535; 99221; 99252; C1776; G0378; G0463; J2405

== ENCOUNTER 2024-08-17 12:59 | Outpatient (RCR) | payer MEDICARE, SELFPAY ==
[2024-07-19 04:31] VITALS: BMI 42.4
[2024-07-25 13:13] LABS: International Normalized Ratio 2.6; Prothrombin Time (Protime)PT. 28.7 SECONDS (11.7-14.9)
[2024-07-25 13:24] LABS: Hemoglobin A1c 5.2 % (3.8-5.6)
[2024-08-04 15:46] LABS: International Normalized Ratio 1.2
[2024-08-04 16:06] LABS: AST(SGOT) 15 U/L (15-37); Alanine Aminotransfer ALT/SGPT 22 U/L (16-61); Albumin, Serum 3.1 g/dL (3.2-5.0); Alkaline Phosphatase 48 U/L (45-117); Bilirubin, Direct 0.26 mg/dL (0.00-0.30); Cholesterol 131 mg/dL (200); Globulin 3.7 g/dL (2.2-4.2); High Density Lipoprotein 36 mg/dL; Protein, Total 6.8 g/dL (6.4-8.2); Triglycerides 157 mg/dL; Very Low Density Lipoprotein 31 mg/dL (5-40)
[2024-08-10 14:55] LABS: International Normalized Ratio 1.9; Prothrombin Time (Protime)PT. 22.2 SECONDS (11.7-14.9)
[2024-08-17 13:41] LABS: International Normalized Ratio 2.6; Prothrombin Time (Protime)PT. 28.6 SECONDS (11.7-14.9)
[2024-08-17 21:12] LABS: Xtra Tube EP Lab EXTRA TUBE
== END 2024-08-17 18:00 | disposition home or self-care (01) ==
LOC: LAB 12:59
PROVIDERS: Internal Medicine Cardiovascular Disease; Physician Assistant; Family Provider Family Medicine; PCP Family Medicine; Referring Provider Nurse Practitioner Family; Visit Provider Nurse Practitioner Family
DX: Z79.01 Long term (current) use of anticoagulants (principal); Z95.2 Presence of prosthetic heart valve
CPT/HCPCS: 36415; 80061; 80076; 83036; 85610

== ENCOUNTER 2024-09-12 13:31 | Outpatient (RCR) | payer MEDICARE, SELFPAY ==
[2024-08-19 02:07] VITALS: BMI 42.4
[2024-09-12 14:14] LABS: International Normalized Ratio 2.9; Prothrombin Time (Protime)PT. 30.7 SECONDS (11.7-14.9)
== END 2024-09-15 18:00 | disposition home or self-care (01) ==
LOC: LAB 13:31
PROVIDERS: Family Provider Family Medicine; PCP Family Medicine; Referring Provider Nurse Practitioner Family; Visit Provider Nurse Practitioner Family
DX: Z79.01 Long term (current) use of anticoagulants (principal); Z95.2 Presence of prosthetic heart valve
CPT/HCPCS: 36415; 85610

== ENCOUNTER 2024-10-16 12:27 | Outpatient (RCR) | payer MEDICARE, SELFPAY ==
[2024-09-16 05:04] VITALS: BMI 42.4
[2024-10-16 13:52] LABS: International Normalized Ratio 2.8; Prothrombin Time (Protime)PT. 29.9 SECONDS (11.7-14.9)
== END 2024-10-16 18:00 | disposition home or self-care (01) ==
LOC: LAB 12:27
PROVIDERS: Family Provider Family Medicine; PCP Family Medicine; Referring Provider Nurse Practitioner Family; Visit Provider Nurse Practitioner Family
DX: Z79.01 Long term (current) use of anticoagulants (principal); Z95.2 Presence of prosthetic heart valve
CPT/HCPCS: 36415; 85610

== ENCOUNTER 2024-11-10 10:46 | Outpatient (RCR) | payer MEDICARE, SELFPAY ==
[2024-10-16 22:20] VITALS: BMI 42.4
[2024-11-10 11:18] LABS: International Normalized Ratio 1.6; Prothrombin Time (Protime)PT. 19.5 SECONDS (11.7-14.9)
== END 2024-11-15 18:00 | disposition home or self-care (01) ==
LOC: LAB 10:46
PROVIDERS: Family Provider Family Medicine; PCP Family Medicine; Referring Provider Nurse Practitioner Family; Visit Provider Nurse Practitioner Family
DX: Z79.01 Long term (current) use of anticoagulants (principal); Z95.2 Presence of prosthetic heart valve
CPT/HCPCS: 36415; 85610

== ENCOUNTER 2024-12-06 10:14 | Outpatient (RCR) | payer MEDICARE, SELFPAY ==
[2024-11-15 21:46] VITALS: BMI 42.4
[2024-11-20 10:24] LABS: International Normalized Ratio 2.4; Prothrombin Time (Protime)PT. 26.3 SECONDS (11.7-14.9)
[2024-12-06 10:59] LABS: Prothrombin Time (Protime)PT. 31.9 SECONDS (11.7-14.9)
== END 2024-12-06 18:00 | disposition home or self-care (01) ==
LOC: LAB 10:14
PROVIDERS: Family Provider Family Medicine; PCP Family Medicine; Referring Provider Nurse Practitioner Family; Visit Provider Nurse Practitioner Family
DX: Z79.01 Long term (current) use of anticoagulants (principal); Z95.2 Presence of prosthetic heart valve
CPT/HCPCS: 36415; 85610

== ENCOUNTER 2024-12-22 10:39 | Outpatient (RCR) | payer MEDICARE, SELFPAY ==
[2024-12-17 18:53] VITALS: BMI 42.4
[2024-12-22 11:17] LABS: International Normalized Ratio 2.8; Prothrombin Time (Protime)PT. 30.2 SECONDS (11.7-14.9)
== END 2024-12-22 18:00 | disposition home or self-care (01) ==
LOC: LAB 10:39
PROVIDERS: Family Provider Family Medicine; PCP Family Medicine; Referring Provider Nurse Practitioner Family; Visit Provider Nurse Practitioner Family
DX: Z79.01 Long term (current) use of anticoagulants (principal); Z95.2 Presence of prosthetic heart valve
CPT/HCPCS: 85610

== ENCOUNTER 2025-03-09 07:14 | Outpatient (RCR) | payer MEDICARE, SELFPAY ==
[2025-03-05 10:42] LABS: Prothrombin Time (Protime)PT. 29.6 SECONDS (11.7-14.9)
[2025-03-05 11:07] LABS: PSA,Total- Diagnostic 4.62 ng/mL (0.00-4.00)
[2025-03-09 08:48] LABS: AST(SGOT) 25 U/L (<=37); Alanine Aminotransfer ALT/SGPT 29 U/L (<=46); Albumin, Serum 4.0 g/dL (3.4-4.8); Alkaline Phosphatase 62 U/L (40-129); Bilirubin, Direct 0.35 mg/dL (0.00-0.30); Cholesterol 127 mg/dL (<=200); Globulin 2.7 g/dL (2.2-4.2); Low Density Lipoprotein Calc. 53 mg/dL; Triglycerides 197 mg/dL; Very Low Density Lipoprotein 39 mg/dL (5-40); cholesterol:hdl ratio screen 3.64
== END 2025-03-09 18:00 | disposition home or self-care (01) ==
LOC: LAB 07:14
PROVIDERS: Internal Medicine Cardiovascular Disease; Urology; Family Provider Family Medicine; PCP Family Medicine; Referring Provider Nurse Practitioner Family; Visit Provider Nurse Practitioner Family
DX: Z79.01 Long term (current) use of anticoagulants (principal); Z95.2 Presence of prosthetic heart valve; E78.2 Mixed hyperlipidemia; E78.00 Pure hypercholesterolemia, unspecified; R97.20 Elevated prostate specific antigen [PSA]
CPT/HCPCS: 36415; 80061; 80076; 84153; 85610

== ENCOUNTER 2025-04-03 09:45 | Outpatient (RCR) | payer MEDICARE, SELFPAY ==
[2025-04-03 11:08] LABS: Prothrombin Time (Protime)PT. 31.4 SECONDS (11.7-14.9)
[2025-04-03 11:37] LABS: AST(SGOT) 26 U/L (<=37); Alanine Aminotransfer ALT/SGPT 29 U/L (<=46); Albumin, Serum 4.2 g/dL (3.4-4.8); Alkaline Phosphatase 68 U/L (40-129); Anion Gap 11 (5-15); BUN 16 mg/dL (4-19); BUN/Creat Ratio 15.7 RATIO (10-20); Bilirubin, Direct 0.33 mg/dL (0.00-0.30); Calcium,Total 9.5 mg/dL (7.6-11.0); Carbon Dioxide 23.4 mmol/L (21.0-32.0); Chloride 105 mmol/L (98-108); Cholesterol 148 mg/dL (<=200); Globulin 2.7 g/dL (2.2-4.2); Glucose 99 mg/dL (70-99); Low Density Lipoprotein Calc. 67 mg/dL; Potassium 4.4 mmol/L (3.3-5.1); Triglycerides 224 mg/dL; Very Low Density Lipoprotein 45 mg/dL (5-40); cholesterol:hdl ratio screen 4.11
== END 2025-04-17 18:00 | disposition home or self-care (01) ==
LOC: LAB 09:45
PROVIDERS: Family Provider Family Medicine; PCP Family Medicine; Referring Provider Nurse Practitioner Family; Visit Provider Nurse Practitioner Family
DX: Z79.01 Long term (current) use of anticoagulants (principal); Z95.2 Presence of prosthetic heart valve; E78.2 Mixed hyperlipidemia; I10 Essential (primary) hypertension; G47.33 Obstructive sleep apnea (adult) (pediatric)
CPT/HCPCS: 36415; 80048; 80061; 80076; 85610

== ENCOUNTER 2025-05-30 08:09 | Outpatient (RCR) | payer MEDICARE, SELFPAY ==
[2025-05-30 09:34] LABS: Prothrombin Time (Protime)PT. 30.6 SECONDS (11.7-14.9)
== END 2025-06-16 18:00 | disposition home or self-care (01) ==
LOC: LAB 08:09
PROVIDERS: Family Provider Family Medicine; PCP Family Medicine; Referring Provider Nurse Practitioner Family; Visit Provider Nurse Practitioner Family
DX: Z79.01 Long term (current) use of anticoagulants (principal)
CPT/HCPCS: 36415; 85610

== ENCOUNTER → 2025-06-11 | Outpatient (CLI) | payer MEDICARE, SELFPAY | END | disposition home or self-care (01) | PROVIDERS: PCP Family Medicine; Referring Provider Nurse Practitioner Family; Visit Provider Nurse Practitioner Family | DX: J45.52 Severe persistent asthma with status asthmaticus (principal) | CPT/HCPCS: 94060; 94726; 94729 ==

== ENCOUNTER → 2025-06-21 | Outpatient (CLI) | payer MEDICARE, SELFPAY | END | disposition home or self-care (01) | LOC: SL 09:25 | PROVIDERS: PCP Family Medicine; Referring Provider Nurse Practitioner Family; Visit Provider Nurse Practitioner Family | DX: G47.33 Obstructive sleep apnea (adult) (pediatric) (principal) | CPT/HCPCS: 94762 ==

== ENCOUNTER 2025-07-17 09:53 | Outpatient (RCR) | payer MEDICARE, SELFPAY ==
[2025-07-17 11:11] LABS: Prothrombin Time (Protime)PT. 32.2 SECONDS (11.7-14.9)
== END 2025-07-17 18:00 | disposition home or self-care (01) ==
LOC: LAB 09:53
PROVIDERS: Family Provider Family Medicine; PCP Family Medicine; Referring Provider Nurse Practitioner Family; Visit Provider Nurse Practitioner Family
DX: Z79.01 Long term (current) use of anticoagulants (principal)
CPT/HCPCS: 36415; 85610